=== PATIENT | female | born 1980 | race African-American/Black ===

== ENCOUNTER 2016-07-30 06:53 | Inpatient (IN) | payer BC ==
[2016-07-30 07:36] LABS: AMNISURE (ROM) POSITIVE (NEGATIVE)
[2016-07-30] MEDS ORDERED: PENICILLIN G-K 5 MILLION UNIT VIAL ONE ×2 (07:45→11:45)
[2016-07-30] MEDS: RINGERS SOLUTION,LACTATED 1,000 ML IV PRN ×2 (07:51→09:23)
--- NOTE | 2016-07-30 08:00 | L&D Flow Sheet ---
LD Flowsheet Datetime Report Generated by CPN: 07/30/2016 08:00 Datetime: 07/30/2016 07:58 I/O Interventions: Up to BR (Mana Iron, RN) Datetime: 07/30/2016 07:55 Medications Antibiotics: Penicillin IV (Units) @ 5million units IVPB (Mana Iron, RN) Datetime: 07/30/2016 07:51 Patient Care IV/Blood Work: IV Started; IV Bolus Started (Mana Iron, RN) Datetime: 07/30/2016 07:42 I/O Interventions: Up to BR (Mana Iron, RN) Datetime: 07/30/2016 07:31 Vital Signs NBP Sys/Lenka/Mean (mmHg): 125 (QS system process) : 80 (QS system process) : 94 (QS system process) Pulse: 97 (QS system process) Datetime: 07/30/2016 07:24 I/O Interventions: Up to BR (Mana Iron, RN) Datetime: 07/30/2016 07:22 Communication Communication Comments: Dr Jose at desk. Informed pt complaints, FHR, UC pattern, SVE, amnisure pending. No new orders received. (Mana Iron, RN) Datetime: 07/30/2016 07:21 Vital Signs NBP Sys/Lenka/Mean (mmHg): 156 (QS system process) : 80 (QS system process) : 109 (QS system process) Pulse: 93 (QS system process) Datetime: 07/30/2016 07:18 Vaginal Exam Dilatation (cm): 3.0 (Mana Perdue RN) Effacement (%): 80 (Mana Perdue RN) Station: 1 (Mana Perdue RN) Exam by: Diana Perdue RNC (Mana Perdue RN) Vaginal Bleeding: None (Mana Perdue RN) Cervix, Consistency: Soft (Mana Perdue RN) Cervix, Position: Posterior (Mana Perdue RN)
[2016-07-30] MEDS ORDERED: BENZOIN/ALOE VERA/STORAX/TOLU TINCTURE 60 ML TP PRN (08:07)
[2016-07-30] MEDS ORDERED: BUPIVACAINE HCL 0.25 % INJ/PF (2.5 MG/1 ML) 30 ML VIAL INFIL ONE (08:07)
[2016-07-30] MEDS ORDERED: FENTANYL/BUPIVACAINE/NS/PF 100 ML EPI PRN (08:07)
[2016-07-30] MEDS ORDERED: FENTANYL CITRATE INJ/PF 100 MCG/2 ML AMPUL ONE (08:12)
[2016-07-30] MEDS ORDERED: EPHEDRINE SULFATE INJ 50 MG/1 ML AMPULE ONE (08:13)
[2016-07-30] MEDS ORDERED: OXYTOCIN/NORMAL SALINE 20 UNIT/1,000 ML RTUINJ ONE (08:13)
[2016-07-30] MEDS ORDERED: FENTANYL/BUPIVACAINE/NS/PF 200 MCG/100 ML RTUINJ EPI ONE (08:13)
[2016-07-30] MEDS ORDERED: BUPIVACAINE HCL 0.25 % INJ/PF (2.5 MG/1 ML) 30 ML VIAL ONE (08:13)
[2016-07-30] MEDS ORDERED: PHENYLEPHRINE HCL INJ/PF 10 MG/1 ML SDV ONE (08:13)
[2016-07-30 08:19] LABS: APPEARANCE,URINE CLEAR; BILIRUBIN,URINE NEGATIVE (NEGATIVE); GLUCOSE, URINE NEGATIVE (NEGATIVE); KETONES,URINE NEGATIVE (NEGATIVE); LEUKOCYTE ESTERASE,URINE SMALL (NEGATIVE); NITRITE,URINE NEGATIVE (NEGATIVE); PROTEIN,URINE NEGATIVE (NEGATIVE); URINE SPECIFIC GRAVITY 1.011; UROBILINOGEN,URINE NEGATIVE mg/dL (<2.0)
[2016-07-30 08:21] LABS: ABSOLUTE BASOPHILS # (AUTO) 0.1 10^3/uL (0.0-0.2); ABSOLUTE LYMPHOCYTES (AUTO) 1.8 10^3/uL (0.5-4.7); ABSOLUTE MONOCYTES (AUTO) 0.5 10^3/uL (0.1-1.4); ABSOLUTE NEUT (AUTO) 5.1 10^3/uL (1.7-8.2); BASOPHILS % (AUTO) 0.7 % (0-2); EOSINOPHILS % (AUTO) 0.5 % (0-6); HEMATOCRIT 40.9 % (36.0-47.0); HEMOGLOBIN 13.8 g/dL (12.0-15.5); HGB HCT DIFFERENCE 0.5; LYMPHOCYTES % (AUTO) 24.4 % (13-45); MEAN CORPUSCULAR HEMOGLOBIN 31.1 pg (27.0-33.4); MEAN CORPUSCULAR HGB CONC 33.8 g/dL (32.0-36.0); MEAN CORPUSCULAR VOLUME 92 fl (80-97); RED BLOOD COUNT 4.45 10^6/uL (3.72-5.28); RED CELL DISTRIBUTION WIDTH 14.6 % (11.5-14.0); SEGMENTED NEUTROPHILS % (AUTO) 67.4 % (42-78); WHITE BLOOD COUNT 7.6 10^3/uL (4.0-10.5)
[2016-07-30 08:46] LABS: URINE BARBITURATES SCREEN NEGATIVE; URINE METHADONE SCREEN NEGATIVE; URINE PHENCYCLIDINE SCREEN NEGATIVE
[2016-07-30 08:50] LABS: ALANINE AMINOTRANSFERASE 29 U/L (9-52); ALBUMIN 3.8 g/dL (3.5-5.0); ALKALINE PHOSPHATASE 170 U/L (38-126); ANION GAP 14 (5-19); ASPARTATE AMINO TRANSFERASE 24 U/L (14-36); BILIRUBIN,TOTAL 0.5 mg/dL (0.2-1.3); BLOOD UREA NITROGEN 7 mg/dL (7-20); CALCIUM 10.1 mg/dL (8.4-10.2); CARBON DIOXIDE 21 mmol/L (22-30); CHLORIDE 103 mmol/L (98-107); CREATININE RESULT 0.66 mg/dL (0.52-1.25); GLUCOSE 90 mg/dL (75-110); LDH 413 U/L (313-618); POTASSIUM 3.9 mmol/L (3.6-5.0); TOTAL PROTEIN 7.2 g/dL (6.3-8.2); URIC ACID 5.2 mg/dL (2.5-7.0)
--- NOTE | 2016-07-30 09:17 | L&D Progress Notes ---
PROGRESS NOTES Datetime Report Generated by CPN: 07/30/2016 09:17 PROGRESS NOTE Impression: Normal Progression of Labor Procedures: Sterile Vag Exam Plan: Continue Present Management Comment: pt comfortable with epidural..expectant management VAGINAL EXAM Dilatation: 4 Effacement: 90 Station: 0 MEMBRANES Pooling: Positive Membranes: Ruptured Amniotic Fluid Color: Clear FETUS A Monitoring: External US FHR Category: Category I : 36.3 Estimated Weight (gm): 2900 Presentation: Vertex SIGNATURE SIGNATURE: [id number] Signature: with User ID: [email or web address]
[2016-07-30 09:31] LABS: HIV (1 AND 2) ANTIBODY NEGATIVE (NEGATIVE)
[2016-07-30] MEDS ORDERED: PENICILLIN G-K 5 MILLION UNIT VIAL IV SCH ×3 (10:00→14:00)
--- NOTE | 2016-07-30 11:09 | L&D Progress Notes ---
PROGRESS NOTES Datetime Report Generated by CPN: 07/30/2016 11:09 PROGRESS NOTE Procedures: Intrauterine Pressure Catheter Comment: IUPC placed as unable to trace ctxs...pit augmentation if inadequate pattern VAGINAL EXAM Dilatation: 6 Effacement: 90 Station: 1 FETUS A FHR Category: Category I FETUS C SIGNATURE: [id number] Signature: with User ID: [email or web address]
[2016-07-30] MEDS ORDERED: OXYTOCIN/NORMAL SALINE 1,000 ML IV PRN ×2 (11:18→15:12)
[2016-07-30] MEDS ORDERED: PENICILLIN G POTASSIUM 2,500,000 UNIT in DEXTROSE 5%-WATER 50 ML IV SCH (11:44)
--- NOTE | 2016-07-30 12:00 | L&D Flow Sheet ---
LD Flowsheet Datetime Report Generated by CPN: 07/30/2016 12:00 Datetime: 07/30/2016 11:51 Pulse: 90 (QS system process) SpO2 (%): 97 (QS system process) LaborFlag: Labor (QS system process) Datetime: 07/30/2016 11:50 Contraction Comments: MVU 150 (Mana Iron, RN) Datetime: 07/30/2016 11:47 NBP Sys/Lenka/Mean (mmHg): 122 (QS system process) : 67 (QS system process) : 88 (QS system process) Pulse: 89 (QS system process) LaborFlag: Labor (QS system process) Datetime: 07/30/2016 11:45 Monitor Mode: Internal; Palpation (Mana Perdue RN) Frequency (min): 2-5 (Mana Perdue RN) Quality: Mild/Moderate (Mana Perdue RN) Duration (sec): 40-100 (Mana Perdue RN) Resting Tone (Palpate): Relaxed (Mana Perdue RN) Resting Tone IUP (mmHg): 20 (Mana Perdue RN) Contraction Comments: Intensity 40-70 (Mana Perdue RN) Monitor Mode: External US (Mana Perdue RN) FHR Baseline Rate : 140 (Mana Perdue RN) Variability: Moderate 6-25 bpm (Mana Perdue RN) Decelerations: None (Mana Perdue RN) Pitocin (milliunit): Pitocin Remains (milliunits) @ 2 (Mana Perdue RN) Datetime: 07/30/2016 11:36 Pulse: 87 (QS system process) SpO2 (%): 100 (QS system process) LaborFlag: Labor (QS system process) Datetime: 07/30/2016 11:32 NBP Sys/Lenka/Mean (mmHg): 122 (QS system process) : 69 (QS system process) : 89 (QS system process) Pulse: 95 (QS system process) LaborFlag: Labor (QS system process) Datetime: 07/30/2016 11:30 Monitor Mode: Internal; Palpation (Mana Iron, RN) Frequency (min): 2-6 (Mana Perdue, RN) Quality: Mild/Moderate (Mana Perdue, RN) Duration (sec): 50-120 (Mana Perdue, RN) Resting Tone (Palpate): Relaxed (Mana Perdue, RN) Resting Tone IUP (mmHg): 20 (Mana Perdue, RN) Contraction Comments: Intensity 50-75 (Mana Perdue, RN) Monitor Mode: External US (Mana Perdue RN) FHR Baseline Rate : 125 (Mana Perdue, RN) Variability: Minimal - Undetectable to <=5 bpm (Mana Perdue, RN) Decelerations: Early (Mana Perdue, RN) Pitocin (milliunit): Pitocin Remains (milliunits) @ 2 (Mana Perdue, RN) Datetime: 07/30/2016 11:28 Contraction Comments: MVU 70 (Mana Perdue, RN) Pitocin (milliunit): Pitocin Started (milliunits) @ 2 (Mana Perdue, RN) Datetime: 07/30/2016 11:17 NBP Sys/Lenka/Mean (mmHg): 118 (QS system process) : 74 (QS system process) : 91 (QS system process) Pulse: 100 (QS system process) LaborFlag: Labor (QS system process) Datetime: 07/30/2016 11:15 Monitor Mode: Internal; Palpation (Mana Iron, RN) Frequency (min): 5 (Mana Iron, RN) Quality: Mild/Moderate (Mana Iron, RN) Duration (sec): 90-120 (Mana Iron, RN) Resting Tone (Palpate): Relaxed (Mana Iron, RN) Resting Tone IUP (mmHg): 20 (Mana Iron, RN) Intensity IUP (mmHg): 50 (Mana Iron, RN) Monitor Mode: External US (Mana Iron, RN) FHR Baseline Rate : 115 (Mana Iron, RN) Variability: Minimal - Undetectable to <=5 bpm (Mana Iron, RN) Decelerations: None (Mana Iron, RN) Datetime: 07/30/2016 11:07 Patient Position/Activity: Left Lateral; Peanut Ball (Mana Perdue, NATASHA) Datetime: 07/30/2016 11:05 Monitor Interventions for UA: IUPC Inserted (Mana Perdue RN) Dilatation (cm): 6.0 (Mana Perdue RN) Effacement (%): 90 (Mana Perdue RN) Station: 1 (Mana Perdue RN) Exam by: Dr Robertson (Mana Perdue RN) Vaginal Bleeding: Normal Show (Mana Perdue RN) Cervix, Consistency: Soft (Mana Perdue RN) Cervix, Position: Midposition (Mana Perdue RN) Hygiene: Kathrine Care; Underpad Changed (Mana Perdue RN) Datetime: 07/30/2016 11:03 Communication Comments: Dr Robertson at bedside. (Mana Perdue RN) Datetime: 07/30/2016 11:02 NBP Sys/Lenka/Mean (mmHg): 113 (QS system process) : 75 (QS system process) : 89 (QS system process) Pulse: 92 (QS system process) LaborFlag: Labor (QS system process) Datetime: 07/30/2016 11:00 Monitor Mode: External; Palpation (Mana Perdue, RN) Frequency (min): 3-5 (Mana Iron, RN) Quality: Mild/Moderate (Mana Iron, RN) Duration (sec): 50-80 (Mana Iron, RN) Resting Tone (Palpate): Relaxed (Mana Iron, RN) Monitor Mode: External US (Mana Iron, RN) FHR Baseline Rate : 125 (Mana Iron, RN) Variability: Moderate 6-25 bpm (Mana Iron, RN) Accelerations: 10X10 (Mana Iron, RN) Decelerations: Early (Mana Iron, RN) Datetime: 07/30/2016 10:49 NBP Sys/Lenka/Mean (mmHg): 133 (QS system process) : 75 (QS system process) : 98 (QS system process) Pulse: 82 (QS system process) LaborFlag: Labor (QS system process) Datetime: 07/30/2016 10:45 Monitor Mode: External; Palpation (Mana Iron, RN) Frequency (min): 3-5 (Mana Iron, RN) Quality: Mild/Moderate (Mana Iron, RN) Duration (sec): 50-70 (Mana Iron, RN) Resting Tone (Palpate): Relaxed (Mana Iron, RN) Monitor Mode: External US (Mana Iron, RN) FHR Baseline Rate : 125 (Mana Iron, RN) Variability: Minimal - Undetectable to <=5 bpm (Mana Iron, RN) Decelerations: None (Mana Iron, RN) Datetime: 07/30/2016 10:32 NBP Sys/Lenka/Mean (mmHg): 137 (QS system process) : 87 (QS system process) : 101 (QS system process) Respirations: 16 (Mana Iron, RN) LaborFlag: Labor (QS system process) Datetime: 07/30/2016 10:30 Monitor Mode: External; Palpation (Mana Iron, RN) Frequency (min): 3-6 (Mana Iron, RN) Quality: Mild/Moderate (Mana Iron, RN) Duration (sec): 50-70 (Mana Iron, RN) Resting Tone (Palpate): Relaxed (Mana Iron, RN) Monitor Mode: External US (Mana Iron, RN) FHR Baseline Rate : 120 (Mana Iron, RN) Variability: Moderate 6-25 bpm (Mana Iron, RN) Decelerations: Early (Mana Iron, RN) Datetime: 07/30/2016 10:17 NBP Sys/Lenka/Mean (mmHg): 127 (QS system process) : 81 (QS system process) : 99 (QS system process) Pulse: 78 (QS system process) Respirations: 16 (Mana Perdue RN) LaborFlag: Labor (QS system process) Datetime: 07/30/2016 10:15 Monitor Mode: External; Palpation (Mana Perdue RN) Frequency (min): 3-5 (Mana Perdue RN) Quality: Mild/Moderate (Mana Perdue RN) Duration (sec): 50-70 (Mana Perdue RN) Resting Tone (Palpate): Relaxed (Mana Perdue RN) Monitor Mode: External US (Mana Perdue RN) FHR Baseline Rate : 125 (Mana Perdue RN) Variability: Moderate 6-25 bpm (Manacarmencita Perdue, RN) Decelerations: Early (Manacarmencita Perdue RN) Datetime: 07/30/2016 10:03 NBP Sys/Lenka/Mean (mmHg): 129 (QS system process) : 80 (QS system process) : 100 (QS system process) Pulse: 90 (QS system process) Respirations: 15 (Mana Iron, RN) Temperature (F): 97.5 (Mana Iron, RN) Temperature (C): 36.4 (QS system process) Temperature Route: Oral (Mana Iron, RN) LaborFlag: Labor (QS system process) Datetime: 07/30/2016 10:00 Monitor Mode: External; Palpation (Mana Perdue, RN) Frequency (min): 4-6 (Manacarmencita Perdue, RN) Quality: Mild/Moderate (Mana Iron, RN) Duration (sec): 60-90 (Mana Iron, RN) Resting Tone (Palpate): Relaxed (Mana Iron, RN) Monitor Mode: External US (Manacarmencita Perdue, RN) FHR Baseline Rate : 125 (Mana Iron, RN) Variability: Moderate 6-25 bpm (Mana Iron, RN) Decelerations: Early (Mana Iron, RN) Patient Position/Activity: Right Lateral; Peanut Ball (Mana Iron, RN) Datetime: 07/30/2016 09:48 NBP Sys/Lenka/Mean (mmHg): 119 (QS system process) : 76 (QS system process) : 92 (QS system process) Pulse: 92 (QS system process) LaborFlag: Labor (QS system process) Datetime: 07/30/2016 09:32 NBP Sys/Lenka/Mean (mmHg): 114 (QS system process) : 70 (QS system process) : 86 (QS system process) Pulse: 82 (QS system process) Respirations: 18 (Mana Perdue RN) LaborFlag: Labor (QS system process) Datetime: 07/30/2016 09:30 Monitor Mode: External; Palpation (Mana Perdue RN) Frequency (min): 3-5 (Mana Perdue RN) Quality: Mild/Moderate (Mana Perdue RN) Duration (sec): 60-90 (Mana Perdue RN) Resting Tone (Palpate): Relaxed (Mana Perdue RN) Monitor Mode: External US (Mana Perdue RN) FHR Baseline Rate : 130 (Mana Perdue RN) Variability: Minimal - Undetectable to <=5 bpm (Mana Iron, RN) Decelerations: Early (Mana Iron, RN) Datetime: 07/30/2016 09:23 IV/Blood Work: IV Infusing per Order; New IV Bag Hung; IV Bag Number @ 2 (Mana Perdue, RN) Datetime: 07/30/2016 09:17 NBP Sys/Lenka/Mean (mmHg): 117 (QS system process) : 69 (QS system process) : 86 (QS system process) Pulse: 85 (QS system process) Respirations: 17 (Mana Iron, RN) LaborFlag: Labor (QS system process) Datetime: 07/30/2016 09:14 Pain Scale: 0 (Mana Perdue RN) Pain Presence: None/Denies (Mana Perdue RN) Pain Type: N/A (Mana Perdue RN) Pain Assessment Comments: comfortable w/ ctx (Mana Perdue RN) Dilatation (cm): 5.0 (Mana Perdue RN) Effacement (%): 90 (Mana Perdue RN) Station: 0 (Mana Perdue RN) Exam by: Dr Robertson (Mana Perdue RN) Vaginal Bleeding: Normal Show (Mana Perdue RN) Cervix, Consistency: Soft (Mana Perdue RN) Cervix, Position: Midposition (Mana Perdue RN) LaborFlag: Labor (QS system process) Datetime: 07/30/2016 09:12 I/O Interventions: Goodmna Cath Inserted (Mana Perdue RN) Patient Care Comments: 14fr goodman cath inserted by Dr Robertson under sterile technique, secured to left leg, set to gravity drainage. (Maan Perdue RN) Datetime: 07/30/2016 09:11 NBP Sys/Lenka/Mean (mmHg): 118 (QS system process) : 71 (QS system process) : 90 (QS system process) Pulse: 90 (QS system process) LaborFlag: Labor (QS system process) Datetime: 07/30/2016 09:10 NBP Sys/Lenka/Mean (mmHg): 116 (QS system process) : 67 (QS system process) : 86 (QS system process) Pulse: 93 (QS system process) Communication Comments: Dr Scott at bedside (Mana Perdue RN) LaborFlag: Labor (QS system process) Datetime: 07/30/2016 09:09 NBP Sys/Lenka/Mean (mmHg): 115 (QS system process) : 69 (QS system process) : 87 (QS system process) Pulse: 94 (QS system process) LaborFlag: Labor (QS system process) Datetime: 07/30/2016 09:08 NBP Sys/Lenka/Mean (mmHg): 115 (QS system process) : 71 (QS system process) : 87 (QS system process) Pulse: 86 (QS system process) LaborFlag: Labor (QS system process) Datetime: 07/30/2016 09:07 NBP Sys/Lenka/Mean (mmHg): 117 (QS system process) : 68 (QS system process) : 87 (QS system process) Pulse: 86 (QS system process) Respirations: 16 (Manacarmencita Perdue RN) LaborFlag: Labor (QS system process) Datetime: 07/30/2016 09:06 NBP Sys/Lenka/Mean (mmHg): 118 (QS system process) : 68 (QS system process) : 88 (QS system process) Pulse: 96 (QS system process) LaborFlag: Labor (QS system process) Datetime: 07/30/2016 09:05 NBP Sys/Lenka/Mean (mmHg): 115 (QS system process) : 66 (QS system process) : 85 (QS system process) Pulse: 89 (QS system process) LaborFlag: Labor (QS system process) Datetime: 07/30/2016 09:04 NBP Sys/Lenka/Mean (mmHg): 116 (QS system process) : 64 (QS system process) : 84 (QS system process) Pulse: 89 (QS system process) LaborFlag: Labor (QS system process) Datetime: 07/30/2016 09:03 NBP Sys/Lenka/Mean (mmHg): 120 (QS system process) NBP Sys/Lenka/Mean (mmHg): 122 (QS system process) : 65 (QS system process) : 68 (QS system process) : 86 (QS system process) : 90 (QS system process) Pulse: 94 (QS system process) Pulse: 96 (QS system process) Respirations: 18 (Mana Perdue RN) LaborFlag: Labor (QS system process) Datetime: 07/30/2016 09:01 NBP Sys/Lenka/Mean (mmHg): 139 (QS system process) : 66 (QS system process) : 98 (QS system process) Pulse: 137 (QS system process) Respirations: 18 (Mana Perdue RN) LaborFlag: Labor (QS system process) Datetime: 07/30/2016 09:00 NBP Sys/Lenka/Mean (mmHg): 135 (QS system process) NBP Sys/Lenka/Mean (mmHg): 142 (QS system process) : 76 (QS system process) : 84 (QS system process) : 100 (QS system process) : 107 (QS system process) Pulse: 100 (QS system process) Pulse: 94 (QS system process) Monitor Mode: External; Palpation (Mana Perdue RN) Frequency (min): 3-5 (Mana Perude RN) Quality: Moderate (Mana Perdue RN) Duration (sec): 50-80 (Mana Perdue RN) Resting Tone (Palpate): Relaxed (Mana Perdue RN) Monitor Mode: External US (Mana Perdue RN) FHR Baseline Rate : 135 (Mana Perdue RN) Variability: Moderate 6-25 bpm (Mana Perdue RN) Decelerations: None (Mana Perdue RN) Patient Position/Activity: Left Tilt; Supine (Mana Perdue RN) LaborFlag: Labor (QS system process) Datetime: 07/30/2016 08:58 Pulse: 100 (QS system process) Pulse: 96 (QS system process) SpO2 (%): 93 (QS system process) SpO2 (%): 91 (QS system process) LaborFlag: Labor (QS system process) Datetime: 07/30/2016 08:57 NBP Sys/Lenka/Mean (mmHg): 131 (QS system process) : 80 (QS system process) : 101 (QS system process) Pulse: 92 (QS system process) LaborFlag: Labor (QS system process) Datetime: 07/30/2016 08:56 NBP Sys/Lenka/Mean (mmHg): 135 (QS system process) : 85 (QS system process) : 105 (QS system process) Pulse: 89 (QS system process) LaborFlag: Labor (QS system process) Datetime: 07/30/2016 08:55 NBP Sys/Lenka/Mean (mmHg): 147 (QS system process) : 85 (QS system process) : 111 (QS system process) Pulse: 96 (QS system process) Respirations: 19 (Mana Perdue RN) Epidural Procedure: Cath Placed; Test Dose (Mana Perdue RN) LaborFlag: Labor (QS system process) Datetime: 07/30/2016 08:53 Pulse: 90 (QS system process) SpO2 (%): 100 (QS system process) LaborFlag: Labor (QS system process) Datetime: 07/30/2016 08:51 Pulse: 88 (QS system process) SpO2 (%): 93 (QS system process) Procedure Type: Epidural (Mana Perdue RN) Procedure Verify: Correct Patient Identity; Correct Side and Site are Marked; Accurate Procedure Consent Form; Agreement on Procedure to be Done; Correct Patient Position; Relevant Images and Results are Properly Labeled and Displayed; Addressed Need to Administer Antibiotics or Fluids for Irrigation; Safety Precautions Based on Patient History or Medication Use (Mana Perdue RN) Anesthesia Plans: Epidural (Mana Perdue RN) Epidural Positioning: Sitting (Mana Perdue RN) LaborFlag: Labor (QS system process) Datetime: 07/30/2016 08:48 Anesthesia Comments: Courtneyjoseph at bedside (Mana Perdue, RN) Datetime: 07/30/2016 08:45 Procedure Type: Epidural (Mana Perdue RN) Procedure Verify: Correct Patient Identity; Accurate Procedure Consent Form; Agreement on Procedure to be Done; Relevant Images and Results are Properly Labeled and Displayed; Addressed Need to Administer Antibiotics or Fluids for Irrigation (aMna Perdue RN) Anesthesia Plans: Epidural (Maan Perdue RN) Anesthesia Comments: Dr Burgess notified of epidural request (Mana Perdue RN) Datetime: 07/30/2016 08:39 I/O Interventions: Up to BR (Mana Iron, RN) Datetime: 07/30/2016 08:30 Monitor Mode: External; Palpation (Mana Iron, RN) Frequency (min): 2-4 (Mana Iron, RN) Quality: Moderate (Mana Iron, RN) Duration (sec): 50-70 (Mana Iron, RN) Resting Tone (Palpate): Relaxed (Mana Iron, RN) Monitor Mode: External US (Mana Iron, RN) FHR Baseline Rate : 135 (Mana Iron, RN) Variability: Moderate 6-25 bpm (Mana Iron, RN) Decelerations: None (Mana Iron, RN) Datetime: 07/30/2016 08:17 I/O Interventions: Up to BR (Mana Iron, RN) Datetime: 07/30/2016 08:16 NBP Sys/Lenka/Mean (mmHg): 140 (QS system process) : 74 (QS system process) : 99 (QS system process) Pulse: 92 (QS system process) Temperature (F): 97.6 (Mana Perdue RN) Temperature (C): 36.4 (QS system process) Temperature Route: Oral (Mana Perdue RN) LaborFlag: Labor (QS system process) Datetime: 07/30/2016 08:00 Monitor Mode: External; Palpation (Latoya Martinez RN) Frequency (min): 3-5 (Latoya Martinez RN) Quality: Moderate (Mana Perdue RN) Duration (sec): 60-80 (Latoya Martinez RN) Resting Tone (Palpate): Relaxed (Mana Perdue RN) Monitor Mode: External US (Latoya Martinez RN) FHR Baseline Rate : 135 (Mana Perdue RN) Variability: Moderate 6-25 bpm (Mana Perdue RN) Accelerations: 15X15 (Latoya Martinez RN) Decelerations: Variable (Mana Perdue RN)
[2016-07-30 12:22] LABS: CHLAM PCR NOT DETECTED (NOT DETECT)
[2016-07-30] MEDS ORDERED: DIPH/PERTUSS(ACELL)/TETANUS VAC/PF 0.5 ML SYR (>=10YO) IM PRN (15:12)
[2016-07-30] MEDS ORDERED: MEASLES,MUMPS&RUBELLA VACC/PF 0.5 ML VIAL SUBCUT PRN (15:12)
[2016-07-30] MEDS ORDERED: ACETAMINOPHEN WITH CODEINE #3 TABLET PO PRN (15:12)
[2016-07-30] MEDS ORDERED: DIBUCAINE 1% OINTMENT 28 GM TP PRN (15:12)
[2016-07-30] MEDS ORDERED: BENZOCAINE/MENTHOL AEROSOL SPRAY 56 ML TOP PRN (15:12)
[2016-07-30] MEDS ORDERED: ZOLPIDEM TARTRATE 5 MG TABLET PO PRN (15:12)
--- NOTE | 2016-07-30 15:54 | Delivery Summary ---
Del Sum A-C Datetime Report Generated by CPN: 07/30/2016 15:53 ADMISSION DATA Chief Complaint: Uterine Contractions Indication for Induction: Not Applicable Admission Impression: Term, Intrauterine ; Active Labor DELIVERY PERSONNEL Delivery Doctor:: Devi Robertson MD Labor and Delivery Nurse:: Mana Perdue RN Nursery Nurse:: Dominique Villavicencio, RN Prepress Operator/PHARMACY RETAIL SUPPORT SPECIALIST: Alfredo Kang, ST MATERNAL INFORMATION Delivery Anesthesia: Epidural Medications After Delivery: Pitocin Drip 20 Units/1000ml NSS Maternal Complications: Other Other Maternal Complications: labor Provider Comments: When pt complete and pushing at +3 station, late decels refractory to oxygen, positioning and fluids noted. OA position noted. Kiwi applied and pulled with 3 ctxs. No pop offs and max pressure of 550. Left mediolateral episiotomy cut just prior to last ctx. Head then delivered OA. Shoulders and body delivered easily. Cord clamped and cut. Placenta spont and intact. Episiotomy repaired. LABOR SUMMARY EDC: 08/24/2016 00:00 No. Babies in Womb: 1 Attempted: No Labor Anesthesia: Epidural LABOR INFORMATION Reason for Induction: Premature Rupture of Membranes Onset of Labor: 07/30/2016 05:45 Complete Dilatation: 07/30/2016 13:26 Oxytocin: Augmentation Group B Beta Strep: Drone Results unknown Antibiotics # of Doses: 2 Antibiotics Time of Last Dose: 1158 Name of Antibiotic Given: PCN Steroids Given: None Reason Steroids Not Administered: Not Applicable MEMBRANES Membranes Rupture Method: Spontaneous Rupture of Membranes: 07/30/2016 05:45 Length of Rupture (hr): 8.68 Amniotic Fluid Color: Clear Amniotic Fluid Amount: Small Amniotic Fluid Odor: Normal STAGES OF LABOR Stage 1 hr: 7 Stage 1 min: 41 Stage 2 hr: 1 Stage 2 min: 0 Stage 3 hr: 0 Stage 3 min: 5 Total Time in Labor hr: 8 Total Time in Labor min: 46 VAGINAL DELIVERY Episiotomy: Left Mediolateral Laceration Extension: N/A Laceration Type: None Laceration Repair: Yes Laceration Repair Note: with 2-0 chromic in standard fashion Sponge Count Correct: N/A CSECTION DELIVERY Primary Indication: N/A Secondary Indication: N/A CSection Urgency: N/A CSection Incidence: N/A Labor: N/A Elective: N/A CSection Incision: N/A BABY A INFORMATION Delivery Date/Time: 07/30/2016 14:26 Method of Delivery: Vaginal Born in Route : No : N/A Forceps: N/A Vacuum Extraction: Successful Shoulder Dystocia : No ASSISTED DELIVERY BABY A Indication for Assisted Delivery: NRFHR Catheter Prior to Procedure: Yes Station Vacuum/Forcep Apply: +3 Position Vacuum/Forcep Apply: Right Occipital Anterior Vacuum Number of Pulls: 3 Vacuum Number of PopOffs: 0 Vacuum Maximum Pressure Obtained: 550 Reduce Pressure btwn Ctx: No Vacuum Scientific Technical Writer: Kiwi Total Time Vacuum Applied: 5 Type of Forceps: N/A PRESENTATION/POSITION BABY A Presentation: Cephalic Cephalic Presentation: Vertex Vertex Position: Right Occipital Anterior Breech Presentation: N/A PLACENTA INFORMATION BABY A Placenta Delivery Time : 07/30/2016 14:31 Placenta Method of Delivery: Spontaneous Placenta Status: Delivered SCORES BABY A Heart Rate 1 min: >100 bpm Resp Effort 1 min: Good Cry Reflex Irritability 1 min: Cough or Sneeze or Pulls Away Muscle Tone 1 min: Active Motion Color 1 min: Blue/Pale Resuscitation Effort 1 min: Tactile Stimulation SCORE 1 MIN: 8 Heart Rate 5 min: >100 bpm Resp Effort 5 min: Good Cry Reflex Irritability 5 min: Cough or Sneeze or Pulls Away Muscle Tone 5 min: Active Motion Color 5 min: Body Timken, Extremities Blue Resuscitation Effort 5 min: Tactile Stimulation SCORE 5 MIN: 9 INFANT INFORMATION BABY A Gestational Age at Delivery: 36.3 Gestational Status: Late - 34- 36.6 Weeks Outcome : Liveborn Infant Condition : Stable Sex: Female IDENTIFICATION BABY A Verification Date/Time: 07/30/2016 14:37 ID Band Number: [id number] Mother's Name Verified: Yes Infant RN Verifying : B Cristaldy RN/M Dane COMPLEX HUMAN RESOURCES MANAGER WEIGHT/LENGTH BABY A Infant Birthweight (gm): 2630 Weight (lb): 5 Infant Weight (oz): 13 Infant Length (in): 19.00 Length (cm): 48.26 CORD INFORMATION BABY A No. Cord Vessels: 3 Nuchal Cord : N/A Cord Blood Taken: Yes-For Storage (Mom's Blood type +) Infant Suction: Mouth; Nose ASSESSMENT BABY A Infant Complications: Multiple Late Decels Physical Findings at Delivery: Within Normal Limits; Molding of the Head Respirations: Appears Normal Skin to Skin: Yes Skin to Skin Time (min): 60 Energy Trader/ALS Called : No Care By: Priscilla Villavicencio RN Transferred To: Remains with Mother BABY B INFORMATION : N/A SIGNATURES Signature: with User ID: [email or web address]
--- NOTE | 2016-07-30 16:00 | L&D Flow Sheet ---
LD Flowsheet Datetime Report Generated by CPN: 07/30/2016 16:00 Datetime: 07/30/2016 15:46 NBP Sys/Lenka/Mean (mmHg): 137 (QS system process) : 75 (QS system process) : 99 (QS system process) Pulse: 93 (QS system process) Datetime: 07/30/2016 15:31 NBP Sys/Lenka/Mean (mmHg): 125 (QS system process) : 67 (QS system process) : 89 (QS system process) Pulse: 99 (QS system process) Respirations: 18 (Mana Iron, RN) Datetime: 07/30/2016 15:16 NBP Sys/Lenka/Mean (mmHg): 115 (QS system process) : 57 (QS system process) : 82 (QS system process) Pulse: 95 (QS system process) Respirations: 16 (Mana Iron, RN) Datetime: 07/30/2016 15:01 NBP Sys/Lenka/Mean (mmHg): 125 (QS system process) : 60 (QS system process) : 86 (QS system process) Pulse: 96 (QS system process) Respirations: 16 (Mana Iron, RN) Temperature (F): 98.5 (Manacarmencita Perdue RN) Temperature (C): 36.9 (QS system process) Temperature Route: Oral (Mana Iron, RN) Datetime: 07/30/2016 14:47 NBP Sys/Lenka/Mean (mmHg): 119 (QS system process) : 63 (QS system process) : 86 (QS system process) Pulse: 106 (QS system process) Respirations: 18 (Mana Perdue RN) Datetime: 07/30/2016 14:31 Stage of : Recovery (Mana Perdue RN) Pain Scale: 0 (Mana Perdue RN) Pain Presence: None/Denies (Mana Perdue RN) Pain Type: N/A (Mana Perdue RN) Stage 2 Comments: Intact placenta, to pathology per Dr Robertson (Mana Perdue RN) Datetime: 07/30/2016 14:30 Pitocin (milliunit): Pitocin 20 Units in 1000ml NS (Mana Perdue RN) Datetime: 07/30/2016 14:27 Stage of : Recovery (Mana Perdue RN) Datetime: 07/30/2016 14:26 Monitor Mode: Internal; Palpation (Mana Perdue RN) Frequency (min): 2-3 (Mana Perdue RN) Quality: Moderate to Strong (Mana Perdue RN) Duration (sec): 60-90 (Mana Perdue RN) Resting Tone (Palpate): Relaxed (Mana Perdue RN) Resting Tone IUP (mmHg): 20 (Mana Perdue RN) Monitor Mode: External US (Mana Perdue RN) FHR Baseline Rate : 140 (Mana Perdue RN) Variability: Minimal - Undetectable to <=5 bpm (Mana Perdue RN) Decelerations: Early; Late; Prolonged (Mana Perdue RN) Stage 2 Comments: Pull x 1, removed w/ delivery of head (Mana Perdue RN) Stage 2 Comments: Viable baby girl, see delivery summary (Mana Iron, RN) Datetime: 07/30/2016 14:25 Pushing Progress: with Pushing (Mana Iron, RN) Datetime: 07/30/2016 14:24 Stage 2 Comments: Pull x 1 (Mana Iron, RN) Datetime: 07/30/2016 14:22 Stage 2 Comments: Pull x 1 (Mana Iron, RN) Datetime: 07/30/2016 14:21 Contraction Comments: IUPC removed (Mana Perdue, RN) Vacuum: On (Mana Iron, RN) Datetime: 07/30/2016 14:16 NBP Sys/Lenka/Mean (mmHg): 124 (QS system process) : 72 (QS system process) : 92 (QS system process) Pulse: 118 (QS system process) LaborFlag: Labor (QS system process) Datetime: 07/30/2016 14:15 Monitor Mode: Internal; Palpation (Mana Perdue, RN) Frequency (min): 2-4 (Mana Iron, RN) Quality: Moderate to Strong (Mana Perdue RN) Duration (sec): 60-90 (Mana Perdue RN) Resting Tone (Palpate): Relaxed (Mana Perdue RN) Resting Tone IUP (mmHg): 20 (Mana Perdue RN) Monitor Mode: External US (Mana Perdue RN) FHR Baseline Rate : 140 (Mana Perdue RN) Variability: Minimal - Undetectable to <=5 bpm (Mana Perdue RN) Decelerations: Early; Late (Mana Perdue RN) Pitocin (milliunit): Pitocin Discontinued (Mana Perdue RN) Oxygen Amount : 10 (Mana Perdue RN) Oxygen Method: Face Mask (Mana Perdue RN) Datetime: 07/30/2016 14:03 Temperature (F): 98.3 (Mana Perdue RN) Temperature (C): 36.8 (QS system process) LaborFlag: Labor (QS system process) Datetime: 07/30/2016 14:00 Monitor Mode: Internal; Palpation (Mana Perdue RN) Frequency (min): 2-4 (Mana Perdue RN) Quality: Moderate to Strong (Mana Perdue RN) Duration (sec): 60-90 (Mana Perdue RN) Resting Tone (Palpate): Relaxed (Mana Perdue RN) Resting Tone IUP (mmHg): 20 (Mana Perdue, RN) Monitor Mode: External US (Mana Perdue RN) FHR Baseline Rate : 140 (Mana Perdue RN) Variability: Minimal - Undetectable to <=5 bpm (Mana Perdue RN) Decelerations: Early; Late (Mana Perdue RN) Pitocin (milliunit): Pitocin Remains (milliunits) @ 6 (Mana Perdue RN) Datetime: 07/30/2016 13:53 Patient Position/Activity: Right Tilt (Mana Perdue, NATASHA) Datetime: 07/30/2016 13:46 NBP Sys/Lenka/Mean (mmHg): 120 (QS system process) : 56 (QS system process) : 81 (QS system process) Pulse: 98 (QS system process) LaborFlag: Labor (QS system process) Datetime: 07/30/2016 13:45 Monitor Mode: Internal; Palpation (Mana Perdue RN) Frequency (min): 2-3 (Mana Perdue RN) Quality: Moderate to Strong (Mana Perdue RN) Duration (sec): 60-90 (Mana Perdue RN) Resting Tone (Palpate): Relaxed (Mana Perdue RN) Resting Tone IUP (mmHg): 20 (Mana Perdue RN) Monitor Mode: External US (Mana Perdue RN) FHR Baseline Rate : 130 (Mana Perdue, RN) Variability: Minimal - Undetectable to <=5 bpm (Mana Perdue RN) Decelerations: Early (Mana Perdue RN) Pitocin (milliunit): Pitocin Remains (milliunits) @ 6 (Mana Perdue RN) Pushing Position: Pushing with Contractions (Mana Perdue RN) Pushing Progress: Presenting Part Visible (Mana Perdue RN) Datetime: 07/30/2016 13:36 IV/Blood Work: IV Bolus Given ml @ 500 (Mana Iron, RN) Datetime: 07/30/2016 13:33 Patient Position/Activity: Left Tilt (Mana Iron, RN) Datetime: 07/30/2016 13:32 I/O Interventions: [place] Discontinued (Mana Iron, RN) Datetime: 07/30/2016 13:31 NBP Sys/Lenka/Mean (mmHg): 130 (QS system process) : 82 (QS system process) : 101 (QS system process) Pulse: 100 (QS system process) Communication Comments: Dr Robertson at bedside (Mana Perdue RN) LaborFlag: Labor (QS system process) Datetime: 07/30/2016 13:30 Monitor Mode: Internal; Palpation (Mana Perdue RN) Frequency (min): 2-3 (Mana Perdue RN) Quality: Moderate to Strong (Mana Perdue RN) Duration (sec): 60-90 (Mana Perdue RN) Resting Tone (Palpate): Relaxed (Mana Perdue RN) Resting Tone IUP (mmHg): 20 (Mana Perdue RN) Intensity IUP (mmHg): 75 (Mana Perdue RN) Monitor Mode: External US (Mana Perdue RN) FHR Baseline Rate : 135 (Mana Perdue RN) Variability: Moderate 6-25 bpm (Mana Perdue RN) Decelerations: Early; Variable (Mana Perdue RN) Pitocin (milliunit): Pitocin Remains (milliunits) @ 6 (Mana Perdue RN) Datetime: 07/30/2016 13:29 Comments: RN remains at bedside continuously assessing FHR while pt pushing (Mana Perdue, RN) Pushing: Coached on Pushing; Urge to Push (Mana Perdue, RN) Pushing Position: Pushing with Contractions (Mana Iron, RN) Datetime: 07/30/2016 13:26 Dilatation (cm): 10.0 (Mana Perdue, RN) Effacement (%): 100 (Mana Perdue, RN) Station: 2 (Mana Perdue, RN) Exam by: Diana Perdue RNC (Maan Perdue, RN) Datetime: 07/30/2016 13:16 NBP Sys/Lenka/Mean (mmHg): 145 (QS system process) : 74 (QS system process) : 104 (QS system process) Pulse: 108 (QS system process) LaborFlag: Labor (QS system process) Datetime: 07/30/2016 13:15 Monitor Mode: Internal; Palpation (Mana Perdue RN) Frequency (min): 3-5 (Mana Perdue, RN) Quality: Moderate (Mana Perdue, RN) Duration (sec): 80-120 (Mana Perdue RN) Resting Tone (Palpate): Relaxed (Mana Perdue, RN) Resting Tone IUP (mmHg): 20 (Mana Perdue, RN) Contraction Comments: Intensity 40-75 (Mana Perdue, RN) Monitor Mode: External US (Mana Perdue RN) FHR Baseline Rate : 130 (Mana Perdue, RN) Variability: Minimal - Undetectable to <=5 bpm (Mana Perdue, RN) Decelerations: Early (Mana Perdue, RN) Pitocin (milliunit): Pitocin Remains (milliunits) @ 6 (Mana Perdue RN) Datetime: 07/30/2016 13:08 Communication Comments: Dr Robertson at desk. EFM reviewed, informed SVE, pt reports pressure. No new orders received. (Mana Perdue RN) Datetime: 07/30/2016 13:06 Patient Position/Activity: Tailors (Mana Iron, RN) Datetime: 07/30/2016 13:04 Dilatation (cm): 9.0 (Mana Iron, RN) Effacement (%): 100 (Mana Iron, RN) Station: 2 (Mana Iron, RN) Exam by: AGlen Perdue RNC (Mana Iron, RN) Datetime: 07/30/2016 13:01 NBP Sys/Lenka/Mean (mmHg): 134 (QS system process) : 89 (QS system process) : 106 (QS system process) Pulse: 89 (QS system process) LaborFlag: Labor (QS system process) Datetime: 07/30/2016 13:00 Monitor Mode: Internal; Palpation (Mana Perdue RN) Frequency (min): 3-5 (Mana Perdue RN) Quality: Moderate (Mana Perdue RN) Duration (sec): 70-90 (Mana Perdue RN) Resting Tone (Palpate): Relaxed (Mana Perdue RN) Resting Tone IUP (mmHg): 20 (Mana Perdue, RN) Contraction Comments: Intensity 60-75 (Mana Perdue, RN) Monitor Mode: External US (Mana Perdue RN) FHR Baseline Rate : 130 (Mana Perdue RN) Variability: Minimal - Undetectable to <=5 bpm (Mana Perdue RN) Decelerations: Early (Mana Perdue RN) Pitocin (milliunit): Pitocin Remains (milliunits) @ 6 (Mana Perdue RN) Datetime: 07/30/2016 12:59 Pitocin (milliunit): Pitocin Increased to (milliunits) @ 6 (Mana Perdue, RN) Datetime: 07/30/2016 12:50 Contraction Comments: MVU 155 (Mana Iron, RN) Datetime: 07/30/2016 12:46 NBP Sys/Lenka/Mean (mmHg): 127 (QS system process) : 86 (QS system process) : 103 (QS system process) Pulse: 89 (QS system process) LaborFlag: Labor (QS system process) Datetime: 07/30/2016 12:45 Monitor Mode: Internal; Palpation (Mana Perdue RN) Frequency (min): 2-4 (Mana Perdue RN) Quality: Moderate (Mana Perdue RN) Duration (sec): 60-80 (Mana Perdue, RN) Resting Tone (Palpate): Relaxed (Mana Perdue, RN) Resting Tone IUP (mmHg): 20 (Mana Perdue, RN) Contraction Comments: Intensity 60-75 (Mana Perdue RN) Monitor Mode: External US (Mana Perdue, RN) FHR Baseline Rate : 130 (Mana Perdue, RN) Variability: Minimal - Undetectable to <=5 bpm (Mana Perdue RN) Decelerations: Early (Mana Perdue RN) Pitocin (milliunit): Pitocin Remains (milliunits) @ 4 (Mana Perdue, NATASHA) Datetime: 07/30/2016 12:31 NBP Sys/Lenka/Mean (mmHg): 131 (QS system process) : 83 (QS system process) : 103 (QS system process) Pulse: 85 (QS system process) LaborFlag: Labor (QS system process) Datetime: 07/30/2016 12:30 Monitor Mode: Internal; Palpation (Mana Iron, RN) Frequency (min): 2-4 (Mana Iron, RN) Quality: Moderate (Mana Iron, RN) Duration (sec): 70-100 (Mana Iron, RN) Resting Tone (Palpate): Relaxed (Mana Iron, RN) Resting Tone IUP (mmHg): 20 (Mana Iron, RN) Contraction Comments: Intensity 60-100 (Mana Iron, RN) Monitor Mode: External US (Mana Iron, RN) FHR Baseline Rate : 130 (Mana Iron, RN) Variability: Moderate 6-25 bpm (Mana Iron, RN) Decelerations: Early (Mana Iron, RN) Datetime: 07/30/2016 12:15 Monitor Mode: Internal; Palpation (Mana Iron, RN) Frequency (min): 2-3 (Mana Iron, RN) Quality: Moderate (Mana Iron, RN) Duration (sec): 70-100 (Mana Iron, RN) Resting Tone (Palpate): Relaxed (Mana Iron, RN) Resting Tone IUP (mmHg): 20 (Mana Iron, RN) Contraction Comments: Intensity 65-95 (Mana Iron, RN) Monitor Mode: External US (Mana Iron, RN) FHR Baseline Rate : 135 (Mana Iron, RN) Variability: Moderate 6-25 bpm (Mana Iron, RN) Decelerations: Early (Mana Iron, RN) Pitocin (milliunit): Pitocin Remains (milliunits) @ 4 (Mana Perdue RN) Datetime: 07/30/2016 12:02 Patient Position/Activity: Right Lateral; Peanut Ball (Mana Perdue RN) Datetime: 07/30/2016 12:00 Temperature (F): 98.1 (Mana Perdue RN) Temperature (C): 36.7 (QS system process) Temperature Route: Oral (Mana Perdue RN) Monitor Mode: Internal; Palpation (Mana Perdue RN) Frequency (min): 2-6 (Mana Perdue RN) Quality: Moderate (Mana Perdue RN) Duration (sec): 50-120 (Mana Perdue RN) Resting Tone (Palpate): Relaxed (Mana Perdue RN) Resting Tone IUP (mmHg): 20 (Mana Perdue RN) Contraction Comments: Intensity 40-75 (Mana Perdue RN) Monitor Mode: External US (Mana Perdue RN) FHR Baseline Rate : 120 (Mana Iron, RN) Variability: Moderate 6-25 bpm (Mana Perdue, RN) Decelerations: Early (Mana Perdue RN) Pitocin (milliunit): Pitocin Increased to (milliunits) @ 4 (Mana Perdue, NATASHA) LaborFlag: Labor (QS system process)
--- NOTE | 2016-07-30 17:20 | Admission Physical ---
Datetime Report Generated by CPN: 07/30/2016 17:19 CURRENT ADMISSION Chief Complaint: Uterine Contractions Indication for Induction: Not Applicable Admit Plan: Admit to Unit; Initiate Labor Augmentation Protocol Admit Plan- Other: GBS prophylaxis ALLERGIES Medication Allergies: No Medication Allergies: No Known Allergies (07/30/2016) Latex: No Latex Allergies Food Allergies: None Environmental Allergies: None OBSTETRICAL HISTORY EDC: 08/24/2016 00:00 : 2 Para: 0 Term: 0 : 0 SAB: 1 IAB: 0 Ectopic: 0 Livin Cesareans: 0 VBACs: 0 Multiple Births: 0 Gestational Diabetes: No Rh Sensitization: No Incompetent Cervix: No GEE: No Infertility: No ART Treatment: No Uterine Anomaly: No IUGR: No Hx Previous C/S: No Macrosomia: No Hx Loss/Stillborn: No PIH: No Hx : No Placenta Previa/Abruption: No Depression/PP Depression: No PTL/PROM: No Post Hemorrhage: No Current Procedures: Ultrasound Obstetrical History Comments: G1 - current - AMA SEE RECORDS Alcohol: No Marijuana : No Cocaine: No Other Illicit Drugs: No Cigarettes: Never Smoker. [id number] MEDICAL HISTORY Diabetes: No Blood Transfusion: No Pulmonary Disease (Asthma, TB): No Breast Disease: No Hypertension: Yes [employer] Surgery: No Heart Disease: No Hosp/Surgery: Yes Autoimmune Disorder: No Anesthetic Complications: No Kidney Disease: No Abnormal Pap Smear: No Neuro/Epilepsy: No Psychiatric Disorders: No Other Medical Diseases: No Hepatitis/Liver Disease: No Significant Family History: No Varicosities/Phlebitis: No Trauma/Violence : No Thyroid Dysfunction: No Medical History Comments: Hx Chronic HTN - stopped meds 2012 1999 - Breast reduction INFECTIOUS HISTORY Gonorrhea: No Genital Herpes: No Chlamydia: No Tuberculosis: No Syphilis: No Hepatitis: No HIV/AIDS Exposure: No Rash or Viral Illness: No HPV: No PHYSICAL EXAM General: Normal HEENT: Normal Neurologic: Normal Thyroid: Normal Heart: Normal Lungs: Normal Breast: Normal Back: Normal Abdomen: Normal Genitourinary Exam: Normal Extremities: Normal DTRs: Normal Pelvic Type: Adequate Vital Signs: Reviewed VAGINAL EXAM Dilatation: 6 Effacement: 90 Station: 1 MEMBRANES Pooling: Positive Membranes: Ruptured Amniotic Fluid Color: Clear FETUS A EGA: 36.3 Monitoring: External US FHR- Baseline: 130 Variability: Moderate 6-25bpm Accelerations: 15X15 Decelerations: None FHR Category: Category I Estimated Weight (gm): 2900 Presentation: Vertex PLANS FOR LABOR AND DELIVERY Labor and Delivery: None Pain Management: Epidural Feeding Preference: Breast Benefit of Breast Feed Discussed: Yes Circumcision: N/A INFORMED CONSENT Signature: with User ID: [email or web address]
[2016-07-30] MEDS: FERROUS SULFATE 325 MG TABLET PO SCH (18:13)
[2016-07-30] MEDS: DOCUSATE SODIUM 100 MG CAPSULE PO SCH (18:14)
--- NOTE | 2016-07-30 19:00 | L&D Flow Sheet ---
LD Flowsheet Datetime Report Generated by CPN: 07/30/2016 19:00 Datetime: 07/30/2016 16:01 NBP Sys/[place]/Mean (mmHg): 121 (QS system process) : 81 (QS system process) : 95 (QS system process) Pulse: 105 (QS system process) Respirations: 18 (Mana Iron, RN) Datetime: 07/30/2016 15:46 NBP Sys/[place]/Mean (mmHg): 137 (QS system process) : 75 (QS system process) : 99 (QS system process) Pulse: 93 (QS system process) Datetime: 07/30/2016 15:31 NBP Sys/[place]/Mean (mmHg): 125 (QS system process) : 67 (QS system process) : 89 (QS system process) Pulse: 99 (QS system process) Respirations: 18 (Mana Iron, RN) Datetime: 07/30/2016 15:16 NBP Sys/[place]/Mean (mmHg): 115 (QS system process) : 57 (QS system process) : 82 (QS system process) Pulse: 95 (QS system process) Respirations: 16 (Mana Iron, RN) Datetime: 07/30/2016 15:01 NBP Sys/[place]/Mean (mmHg): 125 (QS system process) : 60 (QS system process) : 86 (QS system process) Pulse: 96 (QS system process) Respirations: 16 (Mana Perdue RN) Temperature (F): 98.5 (Mana Perdue RN) Temperature (C): 36.9 (QS system process) Temperature Route: Oral (Mana Iron, RN) Datetime: 07/30/2016 14:47 NBP Sys/[place]/Mean (mmHg): 119 (QS system process) : 63 (QS system process) : 86 (QS system process) Pulse: 106 (QS system process) Respirations: 18 (Mana Iron, RN) Datetime: 07/30/2016 14:31 Stage of : Recovery (Mana Perdue RN) Pain Scale: 0 (Mana Iron, RN) Pain Presence: None/Denies (Mana Iron, RN) Pain Type: N/A (Mana Perdue, RN) Stage 2 Comments: Intact placenta, to pathology per Dr Neilsen (Mana Perdue, RN) Datetime: 07/30/2016 14:30 Pitocin (milliunit): Pitocin 20 Units in 1000ml NS (Mana Perdue, RN) Datetime: 07/30/2016 14:27 Stage of : Recovery (Mana Iron, RN) Datetime: 07/30/2016 14:26 Monitor Mode: Internal; Palpation (Mana Perdue RN) Frequency (min): 2-3 (Mana Perdue RN) Quality: Moderate to Strong (Mana Perdue RN) Duration (sec): 60-90 (Mana Perdue RN) Resting Tone (Palpate): Relaxed (Mana Perdue RN) Resting Tone IUP (mmHg): 20 (Mana Perdue RN) Monitor Mode: External US (Mana Perdue RN) FHR Baseline Rate : 140 (Mana Perdue RN) Variability: Minimal - Undetectable to <=5 bpm (Mana Perdue RN) Decelerations: Early; Late; Prolonged (Mana Perdue RN) Stage 2 Comments: Pull x 1, removed w/ delivery of head (Mana Perdue RN) Stage 2 Comments: Viable baby girl, see delivery summary (Mana Perdue RN) Datetime: 07/30/2016 14:25 Pushing Progress: with Pushing (Mana Perdue RN) Datetime: 07/30/2016 14:24 Stage 2 Comments: Pull x 1 (Mana Iron, RN) Datetime: 07/30/2016 14:22 Stage 2 Comments: Pull x 1 (Mana Iron, RN) Datetime: 07/30/2016 14:21 Contraction Comments: IUPC removed (Mana Iron, RN) Vacuum: On (Mana Iron, RN) Datetime: 07/30/2016 14:16 NBP Sys/[place]/Mean (mmHg): 124 (QS system process) : 72 (QS system process) : 92 (QS system process) Pulse: 118 (QS system process) LaborFlag: Labor (QS system process) Datetime: 07/30/2016 14:15 Monitor Mode: Internal; Palpation (Mana Perdue RN) Frequency (min): 2-4 (Mana Perdue RN) Quality: Moderate to Strong (Mana Perdue RN) Duration (sec): 60-90 (Mana Perdue RN) Resting Tone (Palpate): Relaxed (Mana Perdue RN) Resting Tone IUP (mmHg): 20 (Mana Perdue, RN) Monitor Mode: External US (Mana Perdue, RN) FHR Baseline Rate : 140 (Mana Perdue RN) Variability: Minimal - Undetectable to <=5 bpm (Mana Perdue RN) Decelerations: Early; Late (Mana Perdue, RN) Pitocin (milliunit): Pitocin Discontinued (Mana Perdue, RN) Oxygen Amount : 10 (Mana Perdue RN) Oxygen Method: Face Mask (Mana Perdue RN) Datetime: 07/30/2016 14:03 Temperature (F): 98.3 (Mana Perdue RN) Temperature (C): 36.8 (QS system process) LaborFlag: Labor (QS system process) Datetime: 07/30/2016 14:00 Monitor Mode: Internal; Palpation (Mana Perdue, RN) Frequency (min): 2-4 (Mana Perdue, RN) Quality: Moderate to Strong (Mana Perdue RN) Duration (sec): 60-90 (Mana Perdue, RN) Resting Tone (Palpate): Relaxed (Mana Perdue, RN) Resting Tone IUP (mmHg): 20 (Mana Perdue, RN) Monitor Mode: External US (Mana Perdue, RN) FHR Baseline Rate : 140 (Mana Perdue, RN) Variability: Minimal - Undetectable to <=5 bpm (Mana Perdue, RN) Decelerations: Early; Late (Mana Perdue, RN) Pitocin (milliunit): Pitocin Remains (milliunits) @ 6 (Mana Perdue, RN) Datetime: 07/30/2016 13:53 Patient Position/Activity: Right Tilt (Mana Perdue RN) Datetime: 07/30/2016 13:46 NBP Sys/[place]/Mean (mmHg): 120 (QS system process) : 56 (QS system process) : 81 (QS system process) Pulse: 98 (QS system process) LaborFlag: Labor (QS system process) Datetime: 07/30/2016 13:45 Monitor Mode: Internal; Palpation (Mana Perdue RN) Frequency (min): 2-3 (Mana Perdue RN) Quality: Moderate to Strong (Mana Perdue RN) Duration (sec): 60-90 (Mana Perdue RN) Resting Tone (Palpate): Relaxed (Mana Perdue RN) Resting Tone IUP (mmHg): 20 (Mana Perdue RN) Monitor Mode: External US (Mana Perdue RN) FHR Baseline Rate : 130 (Mana Perdue RN) Variability: Minimal - Undetectable to <=5 bpm (Mana Perdue RN) Decelerations: Early (Mana Iron, RN) Pitocin (milliunit): Pitocin Remains (milliunits) @ 6 (Mana Perdue, RN) Pushing Position: Pushing with Contractions (Mana Perdue, RN) Pushing Progress: Presenting Part Visible (Mana Perdue, RN) Datetime: 07/30/2016 13:36 IV/Blood Work: IV Bolus Given ml @ 500 (Mana Perdue, RN) Datetime: 07/30/2016 13:33 Patient Position/Activity: Left Tilt (Mana Perdue, RN) Datetime: 07/30/2016 13:32 I/O Interventions: Goodman Discontinued (Mana Perdue RN) Datetime: 07/30/2016 13:31 NBP Sys/[place]/Mean (mmHg): 130 (QS system process) : 82 (QS system process) : 101 (QS system process) Pulse: 100 (QS system process) Communication Comments: Dr Robertson at bedside (Mana Perdue RN) LaborFlag: Labor (QS system process) Datetime: 07/30/2016 13:30 Monitor Mode: Internal; Palpation (Mana Perdue RN) Frequency (min): 2-3 (Mana Perdue RN) Quality: Moderate to Strong (Mana Perdue RN) Duration (sec): 60-90 (Mana Perdue RN) Resting Tone (Palpate): Relaxed (Mana Perdue RN) Resting Tone IUP (mmHg): 20 (Mana Perdue RN) Intensity IUP (mmHg): 75 (Mana Perdue RN) Monitor Mode: External US (Mana Perdue RN) FHR Baseline Rate : 135 (Mana Perdue RN) Variability: Moderate 6-25 bpm (Mana Perdue RN) Decelerations: Early; Variable (Mana Perdue RN) Pitocin (milliunit): Pitocin Remains (milliunits) @ 6 (Mana Perdue RN) Datetime: 07/30/2016 13:29 Comments: RN remains at bedside continuously assessing FHR while pt pushing (Mana Perdue RN) Pushing: Coached on Pushing; Urge to Push (Mana Perdue RN) Pushing Position: Pushing with Contractions (Mana Perdue RN) Datetime: 07/30/2016 13:26 Dilatation (cm): 10.0 (Mana Perdue RN) Effacement (%): 100 (Mana Perdue RN) Station: 2 (Mana Perdue RN) Exam by: Diana Perdue RNC (Mana Perdue RN) Datetime: 07/30/2016 13:16 NBP Sys/[place]/Mean (mmHg): 145 (QS system process) : 74 (QS system process) : 104 (QS system process) Pulse: 108 (QS system process) LaborFlag: Labor (QS system process) Datetime: 07/30/2016 13:15 Monitor Mode: Internal; Palpation (Mana Perdue RN) Frequency (min): 3-5 (Mana Perdue RN) Quality: Moderate (Mana Perdue RN) Duration (sec): 80-120 (Mana Perdeu RN) Resting Tone (Palpate): Relaxed (Mana Perdue RN) Resting Tone IUP (mmHg): 20 (Mana Perdue RN) Contraction Comments: Intensity 40-75 (Mana Perdue RN) Monitor Mode: External US (Mana Perdue RN) FHR Baseline Rate : 130 (Mana Perdue RN) Variability: Minimal - Undetectable to <=5 bpm (Mana Perdue RN) Decelerations: Early (Mana Perdue RN) Pitocin (milliunit): Pitocin Remains (milliunits) @ 6 (Mana Iron, RN) Datetime: 07/30/2016 13:08 Communication Comments: Dr Neilsen at desk. EFM reviewed, informed SVE, pt reports pressure. No new orders received. (Mana Perdue RN) Datetime: 07/30/2016 13:06 Patient Position/Activity: Tailors (Mana Perdue, RN) Datetime: 07/30/2016 13:04 Dilatation (cm): 9.0 (Mana Perdue RN) Effacement (%): 100 (Mana Perdue RN) Station: 2 (Mana Perdue RN) Exam by: Diana Perdue RNC (Mana Perdue RN) Datetime: 07/30/2016 13:01 NBP Sys/[place]/Mean (mmHg): 134 (QS system process) : 89 (QS system process) : 106 (QS system process) Pulse: 89 (QS system process) LaborFlag: Labor (QS system process) Datetime: 07/30/2016 13:00 Monitor Mode: Internal; Palpation (Mana Perdue RN) Frequency (min): 3-5 (Mana Perdue RN) Quality: Moderate (Mana Perdue RN) Duration (sec): 70-90 (Mana Perdue RN) Resting Tone (Palpate): Relaxed (Mana Perdue RN) Resting Tone IUP (mmHg): 20 (Mana Perdue RN) Contraction Comments: Intensity 60-75 (Mana Perdue RN) Monitor Mode: External US (Mana Perdue RN) FHR Baseline Rate : 130 (Mana Iron, RN) Variability: Minimal - Undetectable to <=5 bpm (Mana Iron, RN) Decelerations: Early (Mana Iron, RN) Pitocin (milliunit): Pitocin Remains (milliunits) @ 6 (Mana Perdue, RN) Datetime: 07/30/2016 12:59 Pitocin (milliunit): Pitocin Increased to (milliunits) @ 6 (Mana Iron, RN) Datetime: 07/30/2016 12:50 Contraction Comments: MVU 155 (Mana Iron, RN) Datetime: 07/30/2016 12:46 NBP Sys/[place]/Mean (mmHg): 127 (QS system process) : 86 (QS system process) : 103 (QS system process) Pulse: 89 (QS system process) LaborFlag: Labor (QS system process) Datetime: 07/30/2016 12:45 Monitor Mode: Internal; Palpation (Mana Perdue RN) Frequency (min): 2-4 (Mana Perdue RN) Quality: Moderate (Mana Perdue RN) Duration (sec): 60-80 (Mana Perdue, RN) Resting Tone (Palpate): Relaxed (Mana Perdue RN) Resting Tone IUP (mmHg): 20 (Mana Perdue RN) Contraction Comments: Intensity 60-75 (Mana Perdue RN) Monitor Mode: External US (Mana Perdue, RN) FHR Baseline Rate : 130 (Mana Perdue, RN) Variability: Minimal - Undetectable to <=5 bpm (Mana Perdue RN) Decelerations: Early (Mana Perdue RN) Pitocin (milliunit): Pitocin Remains (milliunits) @ 4 (Mana Perdue RN) Datetime: 07/30/2016 12:31 NBP Sys/[place]/Mean (mmHg): 131 (QS system process) : 83 (QS system process) : 103 (QS system process) Pulse: 85 (QS system process) LaborFlag: Labor (QS system process) Datetime: 07/30/2016 12:30 Monitor Mode: Internal; Palpation (Mana Perdue, RN) Frequency (min): 2-4 (Mana Perdue, RN) Quality: Moderate (Mana Iron, RN) Duration (sec): 70-100 (Manacarmencita Perdue, RN) Resting Tone (Palpate): Relaxed (Manacarmencita Perdue, RN) Resting Tone IUP (mmHg): 20 (Mana Iron, RN) Contraction Comments: Intensity 60-100 (Mana Iron, RN) Monitor Mode: External US (Mana Perdue, RN) FHR Baseline Rate : 130 (Manacarmencita Perdue, RN) Variability: Moderate 6-25 bpm (Mana Iron, RN) Decelerations: Early (Mana Iron, RN) Datetime: 07/30/2016 12:15 Monitor Mode: Internal; Palpation (Mana Iron, RN) Frequency (min): 2-3 (Mana Iron, RN) Quality: Moderate (Mana Iron, RN) Duration (sec): 70-100 (Mana Iron, RN) Resting Tone (Palpate): Relaxed (Mana Iron, RN) Resting Tone IUP (mmHg): 20 (Mana Iron, RN) Contraction Comments: Intensity 65-95 (Mana Iron, RN) Monitor Mode: External US (Mana Iron, RN) FHR Baseline Rate : 135 (Mana Iron, RN) Variability: Moderate 6-25 bpm (Mana Iron, RN) Decelerations: Early (Mana Iron, RN) Pitocin (milliunit): Pitocin Remains (milliunits) @ 4 (Mana Iron, RN) Datetime: 07/30/2016 12:02 Patient Position/Activity: Right Lateral; Peanut Ball (Mana Iron, RN) Datetime: 07/30/2016 12:00 Temperature (F): 98.1 (Mana Perdue RN) Temperature (C): 36.7 (QS system process) Temperature Route: Oral (Mana Perdue RN) Monitor Mode: Internal; Palpation (Mana Perdue RN) Frequency (min): 2-6 (Mana Perdue RN) Quality: Moderate (Mana Perdue RN) Duration (sec): 50-120 (Mana Perdue RN) Resting Tone (Palpate): Relaxed (Mana Perdue RN) Resting Tone IUP (mmHg): 20 (Mana Perdue RN) Contraction Comments: Intensity 40-75 (Mana Perdue RN) Monitor Mode: External US (Mana Perdue RN) FHR Baseline Rate : 120 (Mana Perdue RN) Variability: Moderate 6-25 bpm (Mana Perdue RN) Decelerations: Early (Mana Perdue RN) Pitocin (milliunit): Pitocin Increased to (milliunits) @ 4 (Mana Perdue RN) LaborFlag: Labor (QS system process) Datetime: 07/30/2016 11:58 Antibiotics: Penicillin IV (Units) @ 2.5million units IVPB (Mana Perdue RN) Datetime: 07/30/2016 11:51 Pulse: 90 (QS system process) SpO2 (%): 97 (QS system process) LaborFlag: Labor (QS system process) Datetime: 07/30/2016 11:50 Contraction Comments: MVU 150 (Mana Iron, RN) Datetime: 07/30/2016 11:47 NBP Sys/[place]/Mean (mmHg): 122 (QS system process) : 67 (QS system process) : 88 (QS system process) Pulse: 89 (QS system process) LaborFlag: Labor (QS system process) Datetime: 07/30/2016 11:45 Monitor Mode: Internal; Palpation (Mana Perdue, RN) Frequency (min): 2-5 (Mana Perdue, RN) Quality: Mild/Moderate (Manacarmencita Perdue, RN) Duration (sec): 40-100 (Manacarmencita Perdue, RN) Resting Tone (Palpate): Relaxed (Manacarmencita Perdue, RN) Resting Tone IUP (mmHg): 20 (Manacarmencita Perdue, RN) Contraction Comments: Intensity 40-70 (Manacarmencita Perdue, RN) Monitor Mode: External US (Mana Perdue, RN) FHR Baseline Rate : 140 (Manacarmencita Perdue, RN) Variability: Moderate 6-25 bpm (Manacarmencita Perdue, RN) Decelerations: None (Mana Perdue, RN) Pitocin (milliunit): Pitocin Remains (milliunits) @ 2 (Mana Perdue, RN) Datetime: 07/30/2016 11:36 Pulse: 87 (QS system process) SpO2 (%): 100 (QS system process) LaborFlag: Labor (QS system process) Datetime: 07/30/2016 11:32 NBP Sys/[place]/Mean (mmHg): 122 (QS system process) : 69 (QS system process) : 89 (QS system process) Pulse: 95 (QS system process) LaborFlag: Labor (QS system process) Datetime: 07/30/2016 11:30 Monitor Mode: Internal; Palpation (Mana Perdue RN) Frequency (min): 2-6 (Mana Perdue RN) Quality: Mild/Moderate (Mana Perdue RN) Duration (sec): 50-120 (Mana Perdue RN) Resting Tone (Palpate): Relaxed (Mana Perdue RN) Resting Tone IUP (mmHg): 20 (Mana Perdue RN) Contraction Comments: Intensity 50-75 (Mana Perdue RN) Monitor Mode: External US (Mana Perdue RN) FHR Baseline Rate : 125 (Mana Perdue RN) Variability: Minimal - Undetectable to <=5 bpm (Mana Perdue RN) Decelerations: Early (Mana Perdue RN) Pitocin (milliunit): Pitocin Remains (milliunits) @ 2 (Mana Perdue RN) Datetime: 07/30/2016 11:28 Contraction Comments: MVU 70 (Mana Perdue, RN) Pitocin (milliunit): Pitocin Started (milliunits) @ 2 (Mana Perdue, RN) Datetime: 07/30/2016 11:17 NBP Sys/[place]/Mean (mmHg): 118 (QS system process) : 74 (QS system process) : 91 (QS system process) Pulse: 100 (QS system process) LaborFlag: Labor (QS system process) Datetime: 07/30/2016 11:15 Monitor Mode: Internal; Palpation (Mana Perdue, RN) Frequency (min): 5 (Mana Perdue RN) Quality: Mild/Moderate (Mana Perdue RN) Duration (sec): 90-120 (Mana Perdue RN) Resting Tone (Palpate): Relaxed (Mana Perdue RN) Resting Tone IUP (mmHg): 20 (Mana Perdue RN) Intensity IUP (mmHg): 50 (Mana Perdue RN) Monitor Mode: External US (Mana Perdue RN) FHR Baseline Rate : 115 (Mana Perdue RN) Variability: Minimal - Undetectable to <=5 bpm (Mana Perdue RN) Decelerations: None (Mana Perdue RN) Datetime: 07/30/2016 11:07 Patient Position/Activity: Left Lateral; Peanut Ball (Mana Perdue RN) Datetime: 07/30/2016 11:05 Monitor Interventions for UA: IUPC Inserted (Mana Perdue RN) Dilatation (cm): 6.0 (Mana Perdue RN) Effacement (%): 90 (Mana Perdue RN) Station: 1 (Mana Perdue RN) Exam by: Dr Robertson (Mana Perdue RN) Vaginal Bleeding: Normal Show (Mana Perdue RN) Cervix, Consistency: Soft (Mana Perdue RN) Cervix, Position: Midposition (Mana Perdue RN) Hygiene: Kathrine Care; Underpad Changed (Mana Perdue RN) Datetime: 07/30/2016 11:03 Communication Comments: Dr Robertson at bedside. (Mana Perdue RN) Datetime: 07/30/2016 11:02 NBP Sys/[place]/Mean (mmHg): 113 (QS system process) : 75 (QS system process) : 89 (QS system process) Pulse: 92 (QS system process) LaborFlag: Labor (QS system process) Datetime: 07/30/2016 11:00 Monitor Mode: External; Palpation (Mana Iron, RN) Frequency (min): 3-5 (Mana Iron, RN) Quality: Mild/Moderate (Mana Iron, RN) Duration (sec): 50-80 (Maan Iron, RN) Resting Tone (Palpate): Relaxed (Mana Iron, RN) Monitor Mode: External US (Mana Iron, RN) FHR Baseline Rate : 125 (Mana Iron, RN) Variability: Moderate 6-25 bpm (Mana Iron, RN) Accelerations: 10X10 (Mana Iron, RN) Decelerations: Early (Mana Iron, RN) Datetime: 07/30/2016 10:49 NBP Sys/[place]/Mean (mmHg): 133 (QS system process) : 75 (QS system process) : 98 (QS system process) Pulse: 82 (QS system process) LaborFlag: Labor (QS system process) Datetime: 07/30/2016 10:45 Monitor Mode: External; Palpation (Mana Iron, RN) Frequency (min): 3-5 (Mana Iron, RN) Quality: Mild/Moderate (Mana Iron, RN) Duration (sec): 50-70 (Mana Iron, RN) Resting Tone (Palpate): Relaxed (Mana Iron, RN) Monitor Mode: External US (Mana Iron, RN) FHR Baseline Rate : 125 (Mana Iron, RN) Variability: Minimal - Undetectable to <=5 bpm (Mana Iron, RN) Decelerations: None (Mana Iron, RN) Datetime: 07/30/2016 10:32 NBP Sys/[place]/Mean (mmHg): 137 (QS system process) : 87 (QS system process) : 101 (QS system process) Respirations: 16 (Mana Iron, RN) LaborFlag: Labor (QS system process) Datetime: 07/30/2016 10:30 Monitor Mode: External; Palpation (Mana Iron, RN) Frequency (min): 3-6 (Mana Iron, RN) Quality: Mild/Moderate (Mana Iron, RN) Duration (sec): 50-70 (Mana Iron, RN) Resting Tone (Palpate): Relaxed (Mana Iron, RN) Monitor Mode: External US (Mana Iron, RN) FHR Baseline Rate : 120 (Mana Irno, RN) Variability: Moderate 6-25 bpm (Mana Iron, RN) Decelerations: Early (Mana Iron, RN) Datetime: 07/30/2016 10:17 NBP Sys/[place]/Mean (mmHg): 127 (QS system process) : 81 (QS system process) : 99 (QS system process) Pulse: 78 (QS system process) Respirations: 16 (Mana Iron, RN) LaborFlag: Labor (QS system process) Datetime: 07/30/2016 10:15 Monitor Mode: External; Palpation (Mana Iron, RN) Frequency (min): 3-5 (Mana Iron, RN) Quality: Mild/Moderate (Manacarmencita Perdue, RN) Duration (sec): 50-70 (Manacarmencita Perdue, RN) Resting Tone (Palpate): Relaxed (Mana Perdue, RN) Monitor Mode: External US (Mana Perdue, RN) FHR Baseline Rate : 125 (Manacarmencita Perdue, RN) Variability: Moderate 6-25 bpm (Mana Iron, RN) Decelerations: Early (Mana Iron, RN) Datetime: 07/30/2016 10:03 NBP Sys/[place]/Mean (mmHg): 129 (QS system process) : 80 (QS system process) : 100 (QS system process) Pulse: 90 (QS system process) Respirations: 15 (Mana Perdue RN) Temperature (F): 97.5 (Mana Perdue RN) Temperature (C): 36.4 (QS system process) Temperature Route: Oral (Mana Perdue RN) LaborFlag: Labor (QS system process) Datetime: 07/30/2016 10:00 Monitor Mode: External; Palpation (Mana Perdue RN) Frequency (min): 4-6 (Mana Perdue, RN) Quality: Mild/Moderate (Mana Perdue, RN) Duration (sec): 60-90 (Mana Perdue RN) Resting Tone (Palpate): Relaxed (Mana Perdue RN) Monitor Mode: External US (Mana Perdue RN) FHR Baseline Rate : 125 (Mana Perdue, RN) Variability: Moderate 6-25 bpm (Mana Perdue, RN) Decelerations: Early (Mana Perdue RN) Patient Position/Activity: Right Lateral; Peanut Ball (Mana Perdue, RN) Datetime: 07/30/2016 09:48 NBP Sys/[place]/Mean (mmHg): 119 (QS system process) : 76 (QS system process) : 92 (QS system process) Pulse: 92 (QS system process) LaborFlag: Labor (QS system process) Datetime: 07/30/2016 09:32 NBP Sys/[place]/Mean (mmHg): 114 (QS system process) : 70 (QS system process) : 86 (QS system process) Pulse: 82 (QS system process) Respirations: 18 (Mana Iron, RN) LaborFlag: Labor (QS system process) Datetime: 07/30/2016 09:30 Monitor Mode: External; Palpation (Mana Iron, RN) Frequency (min): 3-5 (Mana Iron, RN) Quality: Mild/Moderate (Mana Iron, RN) Duration (sec): 60-90 (Mana Iron, RN) Resting Tone (Palpate): Relaxed (Mana Iron, RN) Monitor Mode: External US (Mana Iron, RN) FHR Baseline Rate : 130 (Mana Iron, RN) Variability: Minimal - Undetectable to <=5 bpm (Mana Iron, RN) Decelerations: Early (Mana Iron, RN) Datetime: 07/30/2016 09:23 IV/Blood Work: IV Infusing per Order; New IV Bag Hung; IV Bag Number @ 2 (Manacarmencita Perdue, RN) Datetime: 07/30/2016 09:17 NBP Sys/[place]/Mean (mmHg): 117 (QS system process) : 69 (QS system process) : 86 (QS system process) Pulse: 85 (QS system process) Respirations: 17 (Mana Perdue RN) LaborFlag: Labor (QS system process) Datetime: 07/30/2016 09:14 Pain Scale: 0 (Mana Perdue RN) Pain Presence: None/Denies (Mana Perdue RN) Pain Type: N/A (Mana Perdue RN) Pain Assessment Comments: comfortable w/ ctx (Mana Perdue RN) Dilatation (cm): 5.0 (Mana Perdue RN) Effacement (%): 90 (Mana Perdue RN) Station: 0 (Mana Perdue RN) Exam by: Dr Robertson (Mana Perdue RN) Vaginal Bleeding: Normal Show (Mana Perdue RN) Cervix, Consistency: Soft (Mana Perdue RN) Cervix, Position: Midposition (Mana Perdue RN) LaborFlag: Labor (QS system process) Datetime: 07/30/2016 09:12 I/O Interventions: Goodman Cath Inserted (Mana Perdue, RN) Patient Care Comments: 14fr goodman cath inserted by Dr Robertson under sterile technique, secured to left leg, set to gravity drainage. (Mana Perdue, RN) Datetime: 07/30/2016 09:11 NBP Sys/[place]/Mean (mmHg): 118 (QS system process) : 71 (QS system process) : 90 (QS system process) Pulse: 90 (QS system process) LaborFlag: Labor (QS system process) Datetime: 07/30/2016 09:10 NBP Sys/[place]/Mean (mmHg): 116 (QS system process) : 67 (QS system process) : 86 (QS system process) Pulse: 93 (QS system process) Communication Comments: Dr Scott at bedside (Mana Perdue RN) LaborFlag: Labor (QS system process) Datetime: 07/30/2016 09:09 NBP Sys/[place]/Mean (mmHg): 115 (QS system process) : 69 (QS system process) : 87 (QS system process) Pulse: 94 (QS system process) LaborFlag: Labor (QS system process) Datetime: 07/30/2016 09:08 NBP Sys/[place]/Mean (mmHg): 115 (QS system process) : 71 (QS system process) : 87 (QS system process) Pulse: 86 (QS system process) LaborFlag: Labor (QS system process) Datetime: 07/30/2016 09:07 NBP Sys/[place]/Mean (mmHg): 117 (QS system process) : 68 (QS system process) : 87 (QS system process) Pulse: 86 (QS system process) Respirations: 16 (Mana Perdue RN) LaborFlag: Labor (QS system process) Datetime: 07/30/2016 09:06 NBP Sys/[place]/Mean (mmHg): 118 (QS system process) : 68 (QS system process) : 88 (QS system process) Pulse: 96 (QS system process) LaborFlag: Labor (QS system process) Datetime: 07/30/2016 09:05 NBP Sys/[place]/Mean (mmHg): 115 (QS system process) : 66 (QS system process) : 85 (QS system process) Pulse: 89 (QS system process) LaborFlag: Labor (QS system process) Datetime: 07/30/2016 09:04 NBP Sys/[place]/Mean (mmHg): 116 (QS system process) : 64 (QS system process) : 84 (QS system process) Pulse: 89 (QS system process) LaborFlag: Labor (QS system process) Datetime: 07/30/2016 09:03 NBP Sys/[place]/Mean (mmHg): 120 (QS system process) NBP Sys/[place]/Mean (mmHg): 122 (QS system process) : 65 (QS system process) : 68 (QS system process) : 86 (QS system process) : 90 (QS system process) Pulse: 94 (QS system process) Pulse: 96 (QS system process) Respirations: 18 (Mana Perdue RN) LaborFlag: Labor (QS system process) Datetime: 07/30/2016 09:01 NBP Sys/[place]/Mean (mmHg): 139 (QS system process) : 66 (QS system process) : 98 (QS system process) Pulse: 137 (QS system process) Respirations: 18 (Mana Perdue RN) LaborFlag: Labor (QS system process) Datetime: 07/30/2016 09:00 NBP Sys/[place]/Mean (mmHg): 135 (QS system process) NBP Sys/[place]/Mean (mmHg): 142 (QS system process) : 76 (QS system process) : 84 (QS system process) : 100 (QS system process) : 107 (QS system process) Pulse: 100 (QS system process) Pulse: 94 (QS system process) Monitor Mode: External; Palpation (Mana Perdue RN) Frequency (min): 3-5 (Mana Perdue RN) Quality: Moderate (Mana Perdue RN) Duration (sec): 50-80 (Mana Perdue RN) Resting Tone (Palpate): Relaxed (Mana Perdue RN) Monitor Mode: External US (Mana Perdue RN) FHR Baseline Rate : 135 (Mana Perdue RN) Variability: Moderate 6-25 bpm (Mana Perdue RN) Decelerations: None (Mana Perdue RN) Patient Position/Activity: Left Tilt; Supine (Mana Perdue RN) LaborFlag: Labor (QS system process) Datetime: 07/30/2016 08:58 Pulse: 100 (QS system process) Pulse: 96 (QS system process) SpO2 (%): 93 (QS system process) SpO2 (%): 91 (QS system process) LaborFlag: Labor (QS system process) Datetime: 07/30/2016 08:57 NBP Sys/[place]/Mean (mmHg): 131 (QS system process) : 80 (QS system process) : 101 (QS system process) Pulse: 92 (QS system process) LaborFlag: Labor (QS system process) Datetime: 07/30/2016 08:56 NBP Sys/Lenka/Mean (mmHg): 135 (QS system process) : 85 (QS system process) : 105 (QS system process) Pulse: 89 (QS system process) LaborFlag: Labor (QS system process) Datetime: 07/30/2016 08:55 NBP Sys/Lenka/Mean (mmHg): 147 (QS system process) : 85 (QS system process) : 111 (QS system process) Pulse: 96 (QS system process) Respirations: 19 (Mana Perdue RN) Epidural Procedure: Cath Placed; Test Dose (Mana Perdue RN) LaborFlag: Labor (QS system process) Datetime: 07/30/2016 08:53 Pulse: 90 (QS system process) SpO2 (%): 100 (QS system process) LaborFlag: Labor (QS system process) Datetime: 07/30/2016 08:51 Pulse: 88 (QS system process) SpO2 (%): 93 (QS system process) Procedure Type: Epidural (Mana Perdue RN) Procedure Verify: Correct Patient Identity; Correct Side and Site are Marked; Accurate Procedure Consent Form; Agreement on Procedure to be Done; Correct Patient Position; Relevant Images and Results are Properly Labeled and Displayed; Addressed Need to Administer Antibiotics or Fluids for Irrigation; Safety Precautions Based on Patient History or Medication Use (Mana Perdue RN) Anesthesia Plans: Epidural (Mana Perdue RN) Epidural Positioning: Sitting (Mana Perdue RN) LaborFlag: Labor (QS system process) Datetime: 07/30/2016 08:48 Anesthesia Comments: Dr Burgess at bedside (Mana Perdue RN) Datetime: 07/30/2016 08:45 Procedure Type: Epidural (Mana Perdue RN) Procedure Verify: Correct Patient Identity; Accurate Procedure Consent Form; Agreement on Procedure to be Done; Relevant Images and Results are Properly Labeled and Displayed; Addressed Need to Administer Antibiotics or Fluids for Irrigation (Mana Perdue RN) Anesthesia Plans: Epidural (Mana Perdue RN) Anesthesia Comments: Dr Burgess notified of epidural request (Mana Perdue RN) Datetime: 07/30/2016 08:39 I/O Interventions: Up to BR (Mana Perdue RN) Datetime: 07/30/2016 08:30 Monitor Mode: External; Palpation (Mana Perdue RN) Frequency (min): 2-4 (Mana Perdue RN) Quality: Moderate (Mana Perdue RN) Duration (sec): 50-70 (Mana Perdue RN) Resting Tone (Palpate): Relaxed (Mana Perdue RN) Monitor Mode: External US (Mana Perdue RN) FHR Baseline Rate : 135 (Mana Perdue RN) Variability: Moderate 6-25 bpm (Mana Perdue RN) Decelerations: None (Mana Perdue RN) Datetime: 07/30/2016 08:17 I/O Interventions: Up to BR (Mana Perdue RN) Datetime: 07/30/2016 08:16 NBP Sys/Lenka/Mean (mmHg): 140 (QS system process) : 74 (QS system process) : 99 (QS system process) Pulse: 92 (QS system process) Temperature (F): 97.6 (Mana Perdue RN) Temperature (C): 36.4 (QS system process) Temperature Route: Oral (Mana Perdue RN) LaborFlag: Labor (QS system process) Datetime: 07/30/2016 08:00 Monitor Mode: External; Palpation (Latoya Juan, RN) Frequency (min): 3-5 (Latoya Juan, RN) Quality: Moderate (Mana Iron, RN) Duration (sec): 60-80 (Latoya Juan, RN) Resting Tone (Palpate): Relaxed (Mana Iron, RN) Monitor Mode: External US (Latoya Juan, RN) FHR Baseline Rate : 135 (Mana Iron, RN) Variability: Moderate 6-25 bpm (Mana Iron, RN) Accelerations: 15X15 (Latoya Juan, RN) Decelerations: Variable (Mana Iron, RN) Datetime: 07/30/2016 07:58 I/O Interventions: Up to BR (Mana Iron, RN) Datetime: 07/30/2016 07:55 Antibiotics: Penicillin IV (Units) @ 5million units IVPB (Mana Perdue, NATASHA) Datetime: 07/30/2016 07:51 IV/Blood Work: IV Started; IV Bolus Started (Mana Perdue RN) Procedure Type: Epidural (Mana Perdue RN) Procedure Verify: Correct Patient Identity; Accurate Procedure Consent Form; Agreement on Procedure to be Done; Relevant Images and Results are Properly Labeled and Displayed (Mana Perdue RN) Anesthesia Plans: Epidural (Mana Perdue RN) Datetime: 07/30/2016 07:50 Frequency (min): 2-4 (Mana Perdue RN) Pain Scale: 4 (Mana Perdue RN) Pain Presence: Intermittent (Mana Perdue RN) Pain Type: Contraction (Mana Perdue RN) Pain Location: Abdomen (Mana Perdue RN) Pain Goal: 2 (Mana Perdue RN) Pain Relief Measures: Comfort Measures (Mana Perdue RN) Pain Coping: Breathing Through Contractions (Mana Perdue RN) Pain Assessment Comments: Epidural requested (Mana Perdue RN) Membrane Status: Ruptured (Mana Perdue RN) Membranes Ruptured Date/Time: 07/30/2016 05:45 (Mana Perdue RN) Membranes Rupture Method: Spontaneous (Mana Perdue RN) Amniotic Fluid Color: Clear (Mana Perdue RN) Amniotic Fluid Amount: Small (Mana Perdue RN) Amniotic Fluid Odor: Normal (Mana Perdue RN) Vaginal Bleeding: None (Mana Perdue RN) Pool: Negative (Mana Perdue RN) Level of Consciousness: Fully Conscious (Mana Perdue RN) DTR's/Clonus: DTRs 1+; No Clonus (Mana Perdue RN) Headache: Denies (Mana Perdue RN) Breath Sounds, Left: Clear and Equal (Mana Perdue RN) Breath Sounds, Right: Clear and Equal (Mana Perdue RN) Nausea/Vomiting: Denies (Mana Perdue RN) Instructional Method: Verbal; Patient Instructed; Family/Support Person Instructed; Verbalized Understanding (Mana Perdue RN) Plan of Care: Plan of Care Discussed; Vaginal Delivery; Labor; Labor (Mana Perdue RN) Unit Routine: Hurricane to Room; Call No; Bed; Visiting Policy; Phone/Cell Phone Use; Photography; Unit Personnel; Handwashing; Monitoring; IV Pumps; Safety/Fall Risk Prevention; Bathroom Privileges; Medications (Mana Perdue RN) Labor/Induction: Labor Stages; Antibiotic Use (Mana Perdue RN) Pain Management: Epidural; PRN Medications; Pain Scale/Goals; Comfort Measures (Mana Perdue RN) Medications: Antibiotics (Mana Perdue RN) LaborFlag: Labor (QS system process) Datetime: 07/30/2016 07:42 I/O Interventions: Up to BR (Mana Perdue, RN) Datetime: 07/30/2016 07:31 NBP Sys/Lenka/Mean (mmHg): 125 (QS system process) : 80 (QS system process) : 94 (QS system process) Pulse: 97 (QS system process) LaborFlag: Labor (QS system process) Datetime: 07/30/2016 07:30 Monitor Mode: External; Palpation (Latoya Martinez RN) Frequency (min): 2-4 (Mana Perdue RN) Quality: Moderate (Mana Perdue RN) Duration (sec): 60-80 (Latoya Martinez RN) Resting Tone (Palpate): Relaxed (Latoya Martinez RN) Monitor Mode: External US (Mana Iron, RN) FHR Baseline Rate : 130 (Mana Iron, RN) Variability: Moderate 6-25 bpm (Latoya Juan, RN) Accelerations: 15X15 (Latoya Juan, RN) Decelerations: None (Mana Iron, RN) Datetime: 07/30/2016 07:24 I/O Interventions: Up to BR (Mana Iorn, RN) Datetime: 07/30/2016 07:22 Communication Comments: Dr Garcia at desk. Informed pt complaints, FHR, UC pattern, SVE, amnisure pending. No new orders received. (Mana Iron, RN) Datetime: 07/30/2016 07:21 NBP Sys/Lenka/Mean (mmHg): 156 (QS system process) : 80 (QS system process) : 109 (QS system process) Pulse: 93 (QS system process) LaborFlag: Labor (QS system process) Datetime: 07/30/2016 07:18 Dilatation (cm): 3.0 (Mana Perdue RN) Effacement (%): 80 (Mana Perdue RN) Station: 1 (Mana Perdue RN) Exam by: Diana Perdue RNC (Mana Perdue RN) Vaginal Bleeding: None (Mana Perdue RN) Cervix, Consistency: Soft (Mana Perdue RN) Cervix, Position: Posterior (Mana Perdue RN) Datetime: 07/30/2016 07:08 Stage of : Labor (Mana Perdue RN) Station Vacuum/Forceps Applied: +3 (Mana Perdue RN)
[2016-07-30] MEDS: IBUPROFEN 800 MG TABLET PO SCH (21:46)
[2016-07-31] MEDS: IBUPROFEN 800 MG TABLET PO SCH ×3 (06:14→21:10)
--- NOTE | 2016-07-31 06:14 | L&D Current Admission ---
Current Admit Datetime Report Generated by CPN: 07/31/2016 06:00 ADMISSION INFORMATION Current Admit Date/Time: 07/30/2016 07:50 (07/30/2016 08:40:Mana Perdue RN) Reason for Admission: Onset of Labor; Rupture of Membranes; Labor (07/30/2016 08:40:Mana Perdue RN) Chief Complaint: Contractions; Suspected Rupture of Membranes (07/30/2016 08:40:Mana Perdue RN) Medications During : Vitamin (07/30/2016 08:40:Mana Perdue RN) EGA per Dates: 36.3 (07/30/2016 08:40:QS system process) EGA per US: 36.5 (07/30/2016 08:40:QS system process) Method of Arrival: Wheelchair (07/30/2016 08:40:Mana Perdue RN) Reason for Induction: Not Applicable (07/30/2016 08:40:Mana Perdue RN) Records Available: Requested (07/30/2016 08:40:Mana Perdue RN) General Admission Information: Reviewed; Updated; Confirmed (07/30/2016 08:40:Mana Perdue RN) General Admission Reviewed By: Diana Perdue RN (07/30/2016 08:40:Mana Perdue RN) BELONGINGS/ADVANCED DIRECTIVES Valuables/Personal Effects: None (07/30/2016 08:40:Mana Perdue RN) Other Belongings: See belongings consnet (07/30/2016 08:40:Mana Perdue RN) Disposition of Belongings: Kept with Patient (07/30/2016 08:40:Mana Perdue RN) Advance Direct for Healthcare: No, and Wants No Information (07/30/2016 08:40:Mana Perdue RN) Durable Power of Group [employer] Testing: No (07/30/2016 08:40:Mana Perdue RN) Living Will: No (07/30/2016 08:40:Mana Perdue RN) Organ Donor: No (07/30/2016 08:40:Mana Perdue RN) Pt Rights Information Given: Yes (07/30/2016 08:40:Mana Perdue RN) Pt Understands Pt Rights: Yes (07/30/2016 08:40:Mana Perdue RN) LEARNING ASSESSMENT Knowledge Level: Understands L_D Process; Understands Care Activities; Had Pre-Hospital Education; Understands Diagnosis (07/30/2016 08:40:Mana Perdue RN) Barriers to Learning: Pain (07/30/2016 08:40:Mana Perdue RN) Learns Best By: 1 to 1 Instruction; Reading; Group Discussion (07/30/2016 08:40:Mana Perdue RN) Learning Needs: Labor and Delivery Process; Pain Management; Symptoms to Report; Treatment Plan; Medication; Diagnosis; Nutrition; Equipment; Care; Community Resources (07/30/2016 08:40:Mana Perdue RN) DOMESTIC VIOLANCE SCREENING Dom Viol Threatened/Hurt: No (07/30/2016 08:40:Mana Perdue RN) Hx of Abuse/Neglect past 2yrs: No (07/30/2016 08:40:Mana Perdue RN) Feel Unsafe Going Home: No (07/30/2016 08:40:Mana Perdue RN) Addt'l Observ Indicating Abuse: No (07/30/2016 08:40:Mana Perdue RN) Reason Unable to Complete Screen: N/A, Screen Completed (07/30/2016 08:40:Mana Perdue RN) Considered Personal Harm/Suicide: No (07/30/2016 08:40:Mana Perdue RN) NUTRITIONAL/FUNCTIONAL SCREENING Problem with Appetite >5 Days: No (07/30/2016 08:40:Mana Perdue RN) Chew/Swallow Difficulties: No (07/30/2016 08:40:Mana Perdue RN) Inappropriate Wt Gain/Loss: No (07/30/2016 08:40:Mana Perdue RN) Presence Skin Breakdown/Ulcer: No (07/30/2016 08:40:Mana Perdue RN) Special Diet: No (07/30/2016 08:40:Mana Perdue RN) Pt Requests Infection Prevention Practitioner Visit: No (07/30/2016 08:40:Mana Perdue RN) Hx of Any of the Following?: N/A (07/30/2016 08:40:Mana Perdue RN) New Diagnosis of: N/A (07/30/2016 08:40:Mana Perdue RN) Requires Assist w/Ambulation: No (07/30/2016 08:40:Mana Perdue RN) Uses Assist Device to Ambulate: No (07/30/2016 08:40:Mana Perdue RN) Pt Requires Help w/ADL's: No (07/30/2016 08:40:Mana Perdue RN)
--- NOTE | 2016-07-31 06:14 | L&D General Admission ---
General Admit Datetime Report Generated by CPN: 07/31/2016 06:00 INFORMATION Patient Age: 36 (07/30/2016 06:54:QS system process) EDC: 08/24/2016 00:00 (07/30/2016 07:08:Wanda Lawrence RN) EDC per Ultrasound: 08/22/2016 00:00 (07/30/2016 07:08:Mana Perdue RN) : 2 (07/30/2016 07:08:Mana Perdue RN) Para: 0 (07/30/2016 07:08:Mana Perdue RN) Term: 0 (07/30/2016 07:08:Mana Perdue RN) : 0 (07/30/2016 07:08:Mana Perdue RN) Spontaneous Abortions: 1 (07/30/2016 07:08:Mana Perdue RN) Induced Abortions: 0 (07/30/2016 07:08:Mana Perdue RN) Livin (07/30/2016 07:08:Mana Perdue RN) Cesareans: 0 (07/30/2016 07:08:Mana Perdue RN) VBACs: 0 (07/30/2016 07:08:Mana Perdue RN) Ectopic: 0 (07/30/2016 07:08:Mana Perdue RN) Multiple Births: 0 (07/30/2016 07:08:Mana Perdue RN) Baby, Number in Womb: 1 (07/30/2016 07:08:Mana Perdue RN) CARE Primary Pet Care Worker: Other-Lesia (07/30/2016 07:08:Mana Perdue RN) [facility] 07:08:Mana Perdue RN) Month of 1st Visit: 12/12 (07/30/2016 07:08:Mana Perdue RN) Adequate Care: Yes (07/30/2016 07:08:Mana Perdue RN) Prepregnancy Weight (lb): 190 (07/30/2016 07:08:Mana Perdue RN) Prepregnancy Weight (kg): 86.4 (07/30/2016 07:08:QS system process) Height (in): 65 (07/30/2016 07:06:QS system process) ALLERGIES Medication Allergy: No (07/30/2016 07:08:Mnaa Perdue RN) Medication Allergies: No Known Allergies (07/30/2016) (07/30/2016 07:06:QS system process) Latex Allergy: No Latex Allergies (07/30/2016 07:08:Mana Perdue RN) Food Allergies: None (07/30/2016 07:08:Mana Perdue RN) Environmental Allergies: None (07/30/2016 07:08:Mana Perdue RN) COMMUNICATION Primary Language: Russian (07/30/2016 07:08:Mana Perdue RN) Medical Tx Preferred Language: Russian (07/30/2016 07:08:Mana Perdue RN) Communication Barrier(s): None (07/30/2016 07:08:Mana Perdue RN) DEMOGRAPHICS Address: [facility] [address] [address] (07/30/2016 06:54:QS system process) Zipcode: [address] (07/30/2016 06:54:QS system process) Home (07/30/2016 06:54:QS system process) SSN: [id number] (07/30/2016 06:54:QS system process) Next of Kin Name: UNKNOWN UNKNOWN (07/30/2016 06:54:QS system process) Next of Kin (07/30/2016 06:54:QS system process) Next of Kin Relationship: OR (07/30/2016 06:54:QS system process) Date of : 1980 (07/30/2016 06:54:QS system process) Marital Status: Single (07/30/2016 06:54:QS system process) Sex: Female (07/30/2016 06:54:QS system process) Occupation: Healthcare (07/30/2016 07:08:aMna Perdue RN) Race: (07/30/2016 06:54:QS system process) Ethnicity: Non- or (07/30/2016 06:54:QS system process) Christianity: None (07/30/2016 06:54:QS system process) Education: 14 (07/30/2016 07:08:Mana Perdue RN) FOB Involved: Yes (07/30/2016 07:08:Mana Perdue RN) Father of Baby Name: Lyle Yao (07/30/2016 07:08:Mana Perdue RN) DRUG AND ALCOHOL USE Alcohol: No (07/30/2016 07:08:Mana Perdue RN) Cigarettes: Never Smoker. [id number] (07/30/2016 07:08:Mana Perdue RN) Marijuana: No (07/30/2016 07:08:Mana Perdue RN) Cocaine: No (07/30/2016 07:08:Mana Perdue RN) Other Illicit Drugs: No (07/30/2016 07:08:Mana Perdue RN) VACCINE HISTORY Influenza Vaccine: No (07/30/2016 07:08:Mana Perdue RN) Pneumococcal Vaccine: No (07/30/2016 07:08:Mana Perdue RN) Tetanus Vaccine: No (07/30/2016 07:08:Mana Perdue RN) Tdap Vaccine: Yes (07/30/2016 07:08:Mana Perdue RN) Hepatitis B Vaccine: Yes (07/30/2016 07:08:Mana Perdue RN) Insulation Machine Operator: [facility] (07/30/2016 07:08:Mana Perdue RN) Feeding Preference: Breast (07/30/2016 07:08:Mana Perdue RN) Benefit of Breast Feed Discussed: Yes (07/30/2016 07:08:Mana Perdue RN) Circumcision: N/A (07/30/2016 07:08:Mana Perdue RN) Classes Attended: No (07/30/2016 07:08:Mana Perdue RN) Tubal Ligation: No (07/30/2016 07:08:Mana Perdue RN) Tubal Authorization Signed: N/A (07/30/2016 07:08:Mana Perdue RN) Consent: N/A (07/30/2016 07:08:Mana Perdue RN) Consent Signed: N/A (07/30/2016 07:08:Mana Perdue RN) Pain Management Plans: Epidural (07/30/2016 07:08:Mana Perdue RN) Plans for Labor and Delivery: None (07/30/2016 07:08:Mana Perdue RN) Support Person: Lyle Yao (07/30/2016 07:08:Mana Perdue RN) Support Person Relationship: Significant Other (07/30/2016 07:08:Mana Perdue RN) Cultural/Spritual Practice: No (07/30/2016 07:08:Mana Perdue RN) Spir/Cult Dietary Needs: No (07/30/2016 07:08:Mana Perdue RN) LIVING SITUATION/DISCHARGE PLAN Living Arrangements: House (07/30/2016 07:08:Mana Perdue RN) Adequate Access to:: Electric; Heat; Refrigeration; Plumbing/Running water; Phone; Transportation (07/30/2016 07:08:Mana Perdue RN) WIC Program: No (07/30/2016 07:08:Mana Perdue RN) Discharge Vascular Manager Person: Lyle Yao (07/30/2016 07:08:Mana Perdue RN) Person to Help after Discharge: Lyle Yao (07/30/2016 07:08:Mana Perdue RN) Currently Using Commun Resources: No (07/30/2016 07:08:Mana Perdue RN) Outside Agency/Tractor Engine Assembler: No (07/30/2016 07:08:Mana Perdue RN) Car Seat for Discharge: Yes (07/30/2016 07:08:Mana Perdue RN) Adoption Requested: No (07/30/2016 07:08:Mana Perdue RN) Pt Contact w/ Post : N/A (07/30/2016 07:08:Mana Perdue RN) LABS Blood Type: A Positive (07/30/2016 07:08:Mana Perdue RN) Antibody Screen: Negative (07/30/2016 07:08:Mana Perdue RN) Rho(G) this : Not Applicable (07/30/2016 07:08:Mana Perdue RN) Hemoglobin: 13.8 (07/30/2016 07:58:QS system process) Hematocrit: 40.9 (07/30/2016 07:58:QS system process) MCV: 92 (07/30/2016 07:58:QS system process) Group Beta Strep: Drone Results unknown (07/30/2016 07:08:Mana Perdue RN) Gonorrhea: Negative (07/30/2016 07:08:Mana Perdue RN) Chlamydia: Negative (07/30/2016 07:08:Mana Perdue RN) HIV Exposure Test: Negative (07/30/2016 07:08:Mana Perdue RN) HIV Results: NEGATIVE (07/30/2016 07:58:QS system process) Hepatitis B: Negative (07/30/2016 07:08:Mana Perdue RN) Rubella: POSITIVE NEGATIVE IF LESS THAN OR EQUAL TO 9.99 IU/mL POSITIVE IF GREATER THAN OR EQUAL TO 10.0 IU/mL (07/30/2016 07:58:QS system process) Rubella Titer: 42.70 (07/30/2016 07:58:QS system process) Other Lab Procedures/Results: GTT 118 (07/30/2016 07:08:Mana Perdue RN) OB/PREVIOUS HISTORY Previous Procedures: None (07/30/2016 07:08:Mana Perdue RN) Current Procedures: Ultrasound (07/30/2016 07:08:Mana Perdue RN) History of Previous : No (07/30/2016 07:08:Mana Perdue RN) History of Gestational Diabetes: No (07/30/2016 07:08:Mana Perdue RN) History of PIH: No (07/30/2016 07:08:Mana Perdue RN) History of Incompetent Cervix: No (07/30/2016 07:08:Mana Perdue RN) History of Placenta Previa/Abrup: No (07/30/2016 07:08:Mana Perdue RN) History of Macrosomia: No (07/30/2016 07:08:Mana Perdue RN) History of IUGR: No (07/30/2016 07:08:Mana Perdue RN) History of Hemorrhage: No (07/30/2016 07:08:Mana Perdue RN) History of Loss/Stillborn: No (07/30/2016 07:08:Mana Perdue RN) History of : No (07/30/2016 07:08:Mana Perdue RN) History of D (Rh) Sensitization: No (07/30/2016 07:08:Mana Perdue RN) History Recurrent Loss/Stillborn: No (07/30/2016 07:08:Mana Perdue RN) History Depression/PP Depression: No (07/30/2016 07:08:Mana Perdue RN) History of Uterine Anomaly/GEE: No (07/30/2016 07:08:Mana Perdue RN) History of Infertility: No (07/30/2016 07:08:Mana Perdue RN) History of ART Treatment: No (07/30/2016 07:08:Mana Perdue RN) History of GEE: No (07/30/2016 07:08:Mana Perdue RN) Comments Obstetrical History: G1 - current - AMA (07/30/2016 07:08:Mana Perdue RN) MEDICAL HISTORY Med Hx Diabetes: No (07/30/2016 07:08:Mana Perdue RN) Med Hx Hypertension: Yes (07/30/2016 07:08:Mana Perdue RN) Med Hx Heart Disease: No (07/30/2016 07:08:Mana Perdue RN) Med Hx Autoimmune Disorder: No (07/30/2016 07:08:Mana Perdue RN) Med Hx Kidney Disease/UTI: No (07/30/2016 07:08:Mana Perdue RN) Med Hx Neurologic/Epilepsy: No (07/30/2016 07:08:Mana Perdue RN) Med Hx Psychiatric Disorders: No (07/30/2016 07:08:Mana Perdue RN) Med Hx Hepatitis/Liver Disease: No (07/30/2016 07:08:Mana Perdue RN) Med Hx Varicosities/Phlebitis: No (07/30/2016 07:08:Mana Perdue RN) Med Hx Thyroid Dysfunction: No (07/30/2016 07:08:Mana Perdue RN) Med Hx Trauma/Violence: No (07/30/2016 07:08:Mana Perdeu RN) Med Hx Blood Transfusion: No (07/30/2016 07:08:Mana Perdue RN) Med Hx Pulmonary (Asthma,TB): No (07/30/2016 07:08:Mana Perdue RN) Med Hx Breast: No (07/30/2016 07:08:Mana Perdue RN) Med Hx ASPHALT ENGINEER Surgery: No (07/30/2016 07:08:Mana Perdue RN) Med Hx Hospitalization/Surgery: Yes (07/30/2016 07:08:Mana Perdue RN) Med Hx Anesthetic Complications: No (07/30/2016 07:08:Mana Perdue RN) Med Hx Abnormal Pap Smear: No (07/30/2016 07:08:Mana Perdue, RN) Other Medical Diseases: No (07/30/2016 07:08:Mana Perdue RN) Med Hx Significant Family Hx: No (07/30/2016 07:08:Mana Perdue RN) Details of Med/Surg Hx: Hx Chronic HTN - stopped meds 2012 1999 - Breast reduction (07/30/2016 07:08:Mana Perdue RN) INFECTIOUS HISTORY Inf Hx Gonorrhea: No (07/30/2016 07:08:Mana Perdue RN) Inf Hx Chlamydia: No (07/30/2016 07:08:Mana Perdue RN) Inf Hx Syphilis: No (07/30/2016 07:08:Mana Perdue RN) Inf Hx HIV/AIDS: No (07/30/2016 07:08:Mana Perdue RN) Inf Hx Human Papilloma Virus: No (07/30/2016 07:08:Mana Perdue RN) Inf Hx Pt/Partner Genital Herpes: No (07/30/2016 07:08:Mana Perdue RN) Inf Hx Tuberculosis/Exposure: No (07/30/2016 07:08:Mana Perdue RN) Inf Hx Hepatitis B,C: No (07/30/2016 07:08:aMna Perdue RN) Inf Hx Rash or Viral Illness: No (07/30/2016 07:08:Mana Perdue RN) GENETIC HISTORY Gen Hx Age >=35 at MALINDA: Yes (07/30/2016 07:08:Mana Perdue RN) Gen Hx Thalassemia: No (07/30/2016 07:08:Mana Perdue RN) Gen Hx Congenital Heart Defect: No (07/30/2016 07:08:Mana Perdue RN) Gen Hx Neural Tube Defect: No (07/30/2016 07:08:Mana Perdue RN) Gen Hx Down's Syndrome: No (07/30/2016 07:08:Mana Perdue RN) Gen Hx Phil-Sachs: No (07/30/2016 07:08:Mana Perdue RN) Gen Hx Jennie: No (07/30/2016 07:08:Mana Perdue RN) Gen Hx Familial Dysautonomia: No (07/30/2016 07:08:Mana Perdue RN) Gen Hx Sickle Cell Disease/Trait: No (07/30/2016 07:08:Mana Perdue RN) Gen Hx Hemophilia/Blood Disorder: No (07/30/2016 07:08:Mana Perdue RN) Gen Hx Muscular Dystrophy: No (07/30/2016 07:08:Mana Perdue RN) Gen Hx Cystic Fibrosis: No (07/30/2016 07:08:Mana Perdue RN) Gen Hx Huntingtons Chorea: No (07/30/2016 07:08:Mana Perdue RN) Gen Hx Mental Retardation/Autism: No (07/30/2016 07:08:Mana Perdue RN) Gen Hx Tested for Fragile X: No (07/30/2016 07:08:Mana Perdue RN) Gen Hx Other Inher/Chromosomal: No (07/30/2016 07:08:Mana Perdue RN) Gen Hx Maternal Metabolic DO: No (07/30/2016 07:08:Mana Perdue RN) Gen Hx Pt Father or FOB Defect: No (07/30/2016 07:08:Mana Perdue RN) Gen Hx Other Genetic History: No (07/30/2016 07:08:Mana Perdue RN) Gen Hx Drugs/Meds since LMP: No (07/30/2016 07:08:Mana Perdue RN)
--- NOTE | 2016-07-31 06:15 | L&D Care Plan ---
LD CARE PLANS Datetime Report Generated by CPN: 07/31/2016 06:15 Datetime: 07/30/2016 07:56 Pain State: Risk For (Latoya Martinez RN) Related To: Labor and Delivery Process; Surgical Procedure; Complication(s) of ; Disease Process; Treatment and Procedures; Post (Latoya Martinez RN) Goal(s): Patients Pain will be Assessed and Managed; Patient will Verbalize Adequate Relief of Pain or the Ability to Carrington with Current Pain (Latoya Martinez RN) Interventions: Assess Pain Severity on Scale of 0 (None) to 5 (Severe); Assess Type, Location and Intensity of Pain Each Time Client Reports Discomfort and Notify Provider if Unusal Pain Develops; Encourage Proper Breathing and Relaxation Techniques; Offer Alternatives Such as Repositioning, Calm Environment, Massages, Diversional Activities, Ice Pack, Splinting, and Ambulation; Administer Analgesics as Ordered; Assist with Epidural Placement as Appropriate; Evaluate Therapeutic Effectiveness of Medication and Treatments (Latoya Martinez RN) Outcome: Patient will Report Absence or Relief of Pain Consistent with Established Pain Goal (Latoya Martinez RN) Status: Ongoing (Latoya Martinez RN) Outcome: Patient will have a Decrease in Signs and Symptoms of Discomfort (Latoya Martinez RN) Status: Ongoing (Latoya Martinez RN) Outcome: Pain will be Controlled During Procedures (Latoya Martinez RN) Status: Ongoing (Latoya Martinez RN) Anxiety State: Risk For (Latoya Martinez RN) Related To: Labor and Delivery Process; Surgical Procedure; Perceived or Actual Threat to ; Fear of Unknown; Situational Crisis; Medical Interventions; Significant Life Event (Latoya Martinez RN) Goal(s): Patient will have Decreased Anxiety and be able to Function at Acceptable Levels (Latoya Martinez RN) Interventions: Assess Verbal and Nonverbal Behavioral Indicators of Anxiety; Assist Patient to Identify and Verbalize Symptoms of Anxiety; Identify and Demonstrate Techniques to Control Anxiety; Assist Patient with Coping Mechanisms to Manage Anxiety; Provide Theraputic Touch for the Patient; Explain to Patient, Using a Calm Reassuring Approach and Nonmedical Terms, All Activities, Procedures, and Concerns; Instruct Patient and Family about Post Discharge Care, Limitations, Symptoms to Report and Resources Available (Latoya Martinez RN) Outcome: Patient will Identify, Verbalize and Demonstrate Techniques to Control Anxiety (Latoya Martinez RN) Status: Ongoing (Latoya Martinez RN) Outcome: Patient's Posture, Facial Expressions, Gestures and Activity Level will Reflect Decreased Anxiety (Latoya Martinez RN) Status: Ongoing (Latoya Martinez RN) Outcome: Patient will Verbalize a Sense of Control and/or Acceptance of the Situation (Latoya Martinez RN) Status: Ongoing (Latoya Martinez RN) Outcome: Patient will Identify and Utilize Support Person (Latoya Martinez RN) Status: Ongoing (Latoya Martinez RN) Knowledge Deficit State: Risk For (Latoya Martinez RN) Related To: Labor and Delivery Process; Surgical Procedures; Treatment and Procedures; Impending Alterations in Family Dynamics; Feeding and Care; Community Resources and Available Support Mechanisms (Latoya Martinez RN) Goal(s): Patient will Accurately Verbalize Understanding of Plan of Care and Treatment; Patient and Family will Accurately Verbalize Understanding of the Disease Process (Latoya Martinez RN) Interventions: Assess Motivation and Willingness of Patient/Family to Learn; Assess Preferred Learning Mode: One to One Instruction, Reading, Videos, Group Discussion or Demonstration; Assess Barriers to Learning: Pain, Emotional State, Language Barrier, Cognitive Impairment, Visual or Hearing Deficits; Assess Patient and Family Knowledge of Disease Process, Medications and Treatment; Discuss Therapy and/or Treatment Options, Describe Rationale Behind Management, Therapy and Treatment Recommendations; Instruct Patient and Family on Signs and Symptoms to Report; Instruct Patient and Family on Medication Effects and Side Effects; Provide Appropriate and Timely Education Using Multiple Techniques; Provide Patient and Family with Support Group Information and Resources; Give Clear and Thorough Explanations and Demonstrations (Latoya Martinez RN) Outcome: Patient and Family will Verbalize Understanding of Condition, Treatment and Signs and Symptoms to Report (Latoya Martinez RN) Status: Ongoing (Latoya Martinez RN) Outcome: Patient will Identify Perceived Learning Needs and Express Motivation to Learn (Latoya Martinez RN) Status: Ongoing (Latoya Martinez RN) Outcome: Patient will Verbalize Understanding of Desired Content, and/or Performs Desired Skill Prior to Discharge (Latoya Martinez RN) Infection State: Risk For (Latoya Martinez RN) Related To: Surgical Procedures; Prolonged Labor or Induction; Premature/Prolonged Rupture of Membranes; Invasive Procedures; Altered Tissue Integrity (Latoya Martinez RN) Goal(s): The Patient will be Free of Infection, Vital Signs Stable and Lab Work within Normal Parameters (Latoya Martinez RN) Interventions: Instruct and Reinforce Proper Handwashing, Hygiene, and Care Techniques to Patient and Family; Monitor Vital Signs; Monitor Patient for the Following Signs of Infection: Fever, Abdominal Tenderness, Unusual Discharge; Monitor Aminiotic Fluid, Urine and Lochia for Color and Odor; Observe Wounds, Incisions and Invasive Line Sites for Redness, Drainage and Edema; Assess IV Sites per Hospital Policy; Monitor Lab and Test Results and Notify Provider of Abnormal Findings; Assess Nutritional Status and Promote Good Nutrition (Latoya Martinez RN) Outcome: Patient will Remain Free of Infection (Latoya Martinez RN) Status: Ongoing (Latoya Martinez RN) Outcome: Infection will be Recognized Early to Allow for Prompt Treatment (Latoya Martinez RN) Status: Ongoing (Latoya Martinez RN) Outcome: Patient will have Vital Signs Within Expected Range (Latoya Martinez RN) Status: Ongoing (Latoya Martinez RN) Datetime: 07/30/2016 07:54 Pain State: Risk For (Latoya Martinez RN) Related To: Labor and Delivery Process; Surgical Procedure; Complication(s) of ; Disease Process; Treatment and Procedures; Post (Latoya Martinez RN) Goal(s): Patients Pain will be Assessed and Managed; Patient will Verbalize Adequate Relief of Pain or the Ability to Carrington with Current Pain (Latoya Martinez RN) Interventions: Assess Pain Severity on Scale of 0 (None) to 5 (Severe); Assess Type, Location and Intensity of Pain Each Time Client Reports Discomfort and Notify Provider if Unusal Pain Develops; Encourage Proper Breathing and Relaxation Techniques; Offer Alternatives Such as Repositioning, Calm Environment, Massages, Diversional Activities, Ice Pack, Splinting, and Ambulation; Administer Analgesics as Ordered; Assist with Epidural Placement as Appropriate; Evaluate Therapeutic Effectiveness of Medication and Treatments (Latoya Martinez RN) Outcome: Patient will Report Absence or Relief of Pain Consistent with Established Pain Goal (Latoya Martinez RN) Status: Ongoing (Latoya Martinez RN) Outcome: Patient will have a Decrease in Signs and Symptoms of Discomfort (Latoya Martinez RN) Status: Ongoing (Latoya Martinez RN) Outcome: Pain will be Controlled During Procedures (Latoya Martinez RN) Status: Ongoing (Latoya Martinez RN) Anxiety State: Risk For (Latoya Martinez RN) Related To: Labor and Delivery Process; Surgical Procedure; Perceived or Actual Threat to ; Fear of Unknown; Situational Crisis; Medical Interventions; Significant Life Event (Latoya Martinez RN) Goal(s): Patient will have Decreased Anxiety and be able to Function at Acceptable Levels (Latoya Martinez RN) Interventions: Assess Verbal and Nonverbal Behavioral Indicators of Anxiety; Assist Patient to Identify and Verbalize Symptoms of Anxiety; Identify and Demonstrate Techniques to Control Anxiety; Assist Patient with Coping Mechanisms to Manage Anxiety; Provide Theraputic Touch for the Patient; Explain to Patient, Using a Calm Reassuring Approach and Nonmedical Terms, All Activities, Procedures, and Concerns; Instruct Patient and Family about Post Discharge Care, Limitations, Symptoms to Report and Resources Available (Latoya Martinez RN) Outcome: Patient will Identify, Verbalize and Demonstrate Techniques to Control Anxiety (Latoya Martinez RN) Status: Ongoing (Latoya Martinez RN) Outcome: Patient's Posture, Facial Expressions, Gestures and Activity Level will Reflect Decreased Anxiety (Latoya Martinez RN) Status: Ongoing (Latoya Martinez RN) Outcome: Patient will Verbalize a Sense of Control and/or Acceptance of the Situation (Latoya Martinez RN) Status: Ongoing (Latoya Martinez RN) Outcome: Patient will Identify and Utilize Support Person (Latoya Martinez RN) Status: Ongoing (Latoya Martinez RN) Knowledge Deficit State: Risk For (Latoya Martinez RN) Related To: Labor and Delivery Process; Surgical Procedures; Treatment and Procedures; Impending Alterations in Family Dynamics; Feeding and Infant Care; Community Resources and Available Support Mechanisms (Latoya Martinez RN) Goal(s): Patient will Accurately Verbalize Understanding of Plan of Care and Treatment; Patient and Family will Accurately Verbalize Understanding of the Disease Process (Latoya Martinez RN) Interventions: Assess Motivation and Willingness of Patient/Family to Learn; Assess Preferred Learning Mode: One to One Instruction, Reading, Videos, Group Discussion or Demonstration; Assess Barriers to Learning: Pain, Emotional State, Language Barrier, Cognitive Impairment, Visual or Hearing Deficits; Assess Patient and Family Knowledge of Disease Process, Medications and Treatment; Discuss Therapy and/or Treatment Options, Describe Rationale Behind Management, Therapy and Treatment Recommendations; Instruct Patient and Family on Signs and Symptoms to Report; Instruct Patient and Family on Medication Effects and Side Effects; Provide Appropriate and Timely Education Using Multiple Techniques; Provide Patient and Family with Support Group Information and Resources; Give Clear and Thorough Explanations and Demonstrations (Latoya Martinez RN) Outcome: Patient and Family will Verbalize Understanding of Condition, Treatment and Signs and Symptoms to Report (Latoya Martinez RN) Status: Ongoing (Latoya Martinez RN) Outcome: Patient will Identify Perceived Learning Needs and Express Motivation to Learn (Latoya Martinez RN) Status: Ongoing (Latoya Martinez RN) Outcome: Patient will Verbalize Understanding of Desired Content, and/or Performs Desired Skill Prior to Discharge (Latoya Martinez RN) Infection State: Risk For (Latoya Martinez RN) Related To: Surgical Procedures; Prolonged Labor or Induction; Premature/Prolonged Rupture of Membranes; Invasive Procedures; Altered Tissue Integrity (Latoya Martinez RN) Goal(s): The Patient will be Free of Infection, Vital Signs Stable and Lab Work within Normal Parameters (Latoya Martinez RN) Interventions: Instruct and Reinforce Proper Handwashing, Hygiene, and Care Techniques to Patient and Family; Monitor Vital Signs; Monitor Patient for the Following Signs of Infection: Fever, Abdominal Tenderness, Unusual Discharge; Monitor Aminiotic Fluid, Urine and Lochia for Color and Odor; Observe Wounds, Incisions and Invasive Line Sites for Redness, Drainage and Edema; Assess IV Sites per Hospital Policy; Monitor Lab and Test Results and Notify Provider of Abnormal Findings; Assess Nutritional Status and Promote Good Nutrition (Latoya Martinez RN) Outcome: Patient will Remain Free of Infection (Latoya Martinez RN) Status: Ongoing (Latoya Martinez RN) Outcome: Infection will be Recognized Early to Allow for Prompt Treatment (Latoya Martinez RN) Status: Ongoing (Latoya Martinez RN) Outcome: Patient will have Vital Signs Within Expected Range (Latoya Martinez RN) Status: Ongoing (Latoya Martinez RN)
[2016-07-31 07:26] LABS: MEAN CORPUSCULAR VOLUME 92 fl (80-97)
[2016-07-31 07:37] LABS: HEMATOCRIT 35.2 % (36.0-47.0); HEMOGLOBIN 11.8 g/dL (12.0-15.5); HGB HCT DIFFERENCE 0.2; MEAN CORPUSCULAR HEMOGLOBIN 30.9 pg (27.0-33.4); MEAN CORPUSCULAR HGB CONC 33.5 g/dL (32.0-36.0); RED BLOOD COUNT 3.82 10^6/uL (3.72-5.28); RED CELL DISTRIBUTION WIDTH 14.4 % (11.5-14.0); WHITE BLOOD COUNT 13.6 10^3/uL (4.0-10.5)
--- NOTE | 2016-07-31 09:20 | PDOC PROGRESS REPORT ---
Subjective-OB Subjective: Post Delivery Day: 36 year old. Denies any needs at this time Physical Exam (OB) Vital Signs: Temp Pulse Resp BP Pulse Ox 97.8 F 79 15 99/77 L 97 07/31/16 08:19 07/31/16 08:19 07/31/16 08:19 07/31/16 08:19 07/31/16 08:19 Intake & Output 07/30/16 07/31/16 08/01/16 06:59 06:59 06:59 Weight 85.4 kg - PIH/Pre-Eclampsia Clonus: Negative Headache: Absent Epigastric Pain: No Visual Changes: No - Lochia Lochia Amount: Scant < 10 ml Lochia Color: Rubra/Red - Abdomen Description: Soft, Flat Hernia Present: No Bowel Sounds: Normoactive Flatus Presence: Present Stool: No Fundal Description: Firm, Midline Fundal Height: u/u - u/2 Objective-Diagnostic Laboratory: 07/31/16 06:56 07/30/16 07:58 07/30/16 07/30/16 07/31/16 07:58 07:58 06:56 WBC 13.6 H RBC 3.82 Hgb 11.8 L Hct 35.2 L MCV 92 MCH 30.9 MCHC 33.5 RDW 14.4 H Plt Count 186 Sodium 138.0 Potassium 3.9 Chloride 103 Carbon Dioxide 21 L Anion Gap 14 BUN 7 Creatinine 0.66 Est GFR ( Amer) > 60 Est GFR (Non-Af Amer) > 60 Glucose 90 Uric Acid 5.2 Calcium 10.1 Total Bilirubin 0.5 AST 24 ALT 29 Alkaline Phosphatase 170 H Total Protein 7.2 Albumin 3.8 Blood Type A POSITIVE Antibody Screen NEGATIVE
[2016-07-31] MEDS: FERROUS SULFATE 325 MG TABLET PO SCH ×2 (10:12→17:53)
[2016-07-31] MEDS: DOCUSATE SODIUM 100 MG CAPSULE PO SCH ×2 (10:13→17:53)
[2016-07-31] MEDS: PRENATAL VITAMIN W-O CA NO5/FE FUMARATE/FA CAPSULE PO SCH (10:13)
[2016-07-31] MEDS: ACETAMINOPHEN WITH CODEINE #3 TABLET PO PRN (10:13)
[2016-07-31] MEDS: SENNOSIDES/DOCUSATE 8.6-50 MG 1 EACH TABLET PO SCH (10:13)
[2016-08-01] MEDS: IBUPROFEN 800 MG TABLET PO SCH ×2 (05:07→13:02)
--- NOTE | 2016-08-01 06:15 | L&D General Admission ---
General Admit Datetime Report Generated by CPN: 08/01/2016 06:00 INFORMATION Patient Age: 36 (07/30/2016 06:54:QS system process) EDC: 08/24/2016 00:00 (07/30/2016 07:08:Wanda Lawrence RN) EDC per Ultrasound: 08/22/2016 00:00 (07/30/2016 07:08:Mana Perdue RN) : 2 (07/30/2016 07:08:Mana Perdue RN) Para: 0 (07/30/2016 07:08:Mana Perdue RN) Term: 0 (07/30/2016 07:08:Mana Perdue RN) : 0 (07/30/2016 07:08:Mana Perdue RN) Spontaneous Abortions: 1 (07/30/2016 07:08:Mana Perdue RN) Induced Abortions: 0 (07/30/2016 07:08:Mana Perdue RN) Livin (07/30/2016 07:08:Mana Perdue RN) Cesareans: 0 (07/30/2016 07:08:Mana Perdue RN) VBACs: 0 (07/30/2016 07:08:Mana Perdue RN) Ectopic: 0 (07/30/2016 07:08:Mana Perdue RN) Multiple Births: 0 (07/30/2016 07:08:Mana Perdue RN) Baby, Number in Womb: 1 (07/30/2016 07:08:Mana Perdue RN) CARE Primary Armature Rewinder: Other-Lesia (07/30/2016 07:08:Mana Perdue RN) [facility] 07:[facility]:Mana Perdue RN) Month of 1st Visit: 12/12 (07/30/2016 07:08:Mana Perdue RN) Adequate Care: Yes (07/30/2016 07:08:Mana Perdue RN) Prepregnancy Weight (lb): 190 (07/30/2016 07:08:Mana Perdue RN) Prepregnancy Weight (kg): 86.4 (07/30/2016 07:08:QS system process) Height (in): 65 (07/30/2016 07:06:QS system process) ALLERGIES Medication Allergy: No (07/30/2016 07:08:Mana Perdue RN) Medication Allergies: No Known Allergies (07/30/2016) (07/30/2016 07:06:QS system process) Latex Allergy: No Latex Allergies (07/30/2016 07:08:Mana Perdue RN) Food Allergies: None (07/30/2016 07:08:Mana Perdue RN) Environmental Allergies: None (07/30/2016 07:08:Mana Perdue RN) COMMUNICATION Primary Language: Citizen Of [place] (07/30/2016 07:08:Mana Perdue RN) Medical Tx Preferred Language: Citizen Of [place] (07/30/2016 07:08:Mana Perdue RN) Communication Barrier(s): None (07/30/2016 07:08:Mana Perdue RN) DEMOGRAPHICS Address: [facility] [address] [address] (07/30/2016 06:54:QS system process) Zipcode: [id number] (07/30/2016 06:54:QS system process) Home (07/30/2016 06:54:QS system process) SSN: [id number] (07/30/2016 06:54:QS system process) Next of Kin Name: UNKNOWN UNKNOWN (07/30/2016 06:54:QS system process) Next of Kin (07/30/2016 06:54:QS system process) Next of Kin Relationship: OR (07/30/2016 06:54:QS system process) Date of : 1980 (07/30/2016 06:54:QS system process) Marital Status: Single (07/30/2016 06:54:QS system process) Sex: Female (07/30/2016 06:54:QS system process) Occupation: Healthcare (07/30/2016 07:08:Mana Perdue RN) Race: (07/30/2016 06:54:QS system process) Ethnicity: Non- or (07/30/2016 06:54:QS system process) Christianity: None (07/30/2016 06:54:QS system process) Education: 14 (07/30/2016 07:08:Mana Perdue RN) FOB Involved: Yes (07/30/2016 07:08:Mana Perdue RN) Father of Baby Name: Lyle Yao (07/30/2016 07:08:Mana Perdue RN) DRUG AND ALCOHOL USE Alcohol: No (07/30/2016 07:08:Mana Perdue RN) Cigarettes: Never Smoker. [id number] (07/30/2016 07:08:Mana Perdue RN) Marijuana: No (07/30/2016 07:08:Mana Perdue RN) Cocaine: No (07/30/2016 07:08:Mana Perdue RN) Other Illicit Drugs: No (07/30/2016 07:08:Mana Perdue RN) VACCINE HISTORY Influenza Vaccine: No (07/30/2016 07:08:Mana Perdue RN) Pneumococcal Vaccine: No (07/30/2016 07:08:Mana Perdue RN) Tetanus Vaccine: No (07/30/2016 07:08:Mana Perdue RN) Tdap Vaccine: Yes (07/30/2016 07:08:Mana Perdue RN) Hepatitis B Vaccine: Yes (07/30/2016 07:08:Mana Perdue RN) Telegraph Equipment Maintainer: [facility] (07/30/2016 07:08:Mana Perdue RN) Feeding Preference: Breast (07/30/2016 07:08:Mana Perdue RN) Benefit of Breast Feed Discussed: Yes (07/30/2016 07:08:Mana Perdue RN) Circumcision: N/A (07/30/2016 07:08:Mana Perdue RN) Classes Attended: No (07/30/2016 07:08:Mana Perdue RN) Tubal Ligation: No (07/30/2016 07:08:Mana Perdue RN) Tubal Authorization Signed: N/A (07/30/2016 07:08:Mana Perdue RN) Consent: N/A (07/30/2016 07:08:Mana Perdue RN) Consent Signed: N/A (07/30/2016 07:08:Mana Perdue RN) Pain Management Plans: Epidural (07/30/2016 07:08:Mana Perdue RN) Plans for Labor and Delivery: None (07/30/2016 07:08:Mana Perdue RN) Support Person: Lyle Yao (07/30/2016 07:08:Mana Perdue RN) Support Person Relationship: Significant Other (07/30/2016 07:08:Mana Perdue RN) Cultural/Spritual Practice: No (07/30/2016 07:08:Mana Perdue RN) Spir/Cult Dietary Needs: No (07/30/2016 07:08:Mana Perdue RN) LIVING SITUATION/DISCHARGE PLAN Living Arrangements: House (07/30/2016 07:08:Mana Pedrue RN) Adequate Access to:: Electric; Heat; Refrigeration; Plumbing/Running water; Phone; Transportation (07/30/2016 07:08:Mana Perdue RN) WIC Program: No (07/30/2016 07:08:Mana Perdue RN) Discharge Identification Technician Person: Lyle Yao (07/30/2016 07:08:Mana Perdue RN) Person to Help after Discharge: Lyle Yao (07/30/2016 07:08:Mana Perdue RN) Currently Using Commun Resources: No (07/30/2016 07:08:Mana Perdue RN) Outside Agency/Heddle Machine Operator: No (07/30/2016 07:08:Mana Perdue RN) Car Seat for Discharge: Yes (07/30/2016 07:08:Mana Perdue RN) Adoption Requested: No (07/30/2016 07:08:Mana Perdue RN) Pt Contact w/ Post : N/A (07/30/2016 07:08:Mana Perdue RN) LABS Blood Type: A Positive (07/30/2016 07:08:Mana Perdue RN) Antibody Screen: Negative (07/30/2016 07:08:Mana Perdue RN) Rho(G) this : Not Applicable (07/30/2016 07:08:Mana Perdue RN) Hemoglobin: 11.8 L (07/31/2016 06:56:QS system process) Hematocrit: 35.2 L (07/31/2016 06:56:QS system process) MCV: 92 (07/31/2016 06:56:QS system process) Group Beta Strep: Drone Results unknown (07/30/2016 07:08:Mana Perdue RN) Gonorrhea: Negative (07/30/2016 07:08:Mana Perdue RN) Chlamydia: Negative (07/30/2016 07:08:Mana Perdue RN) HIV Exposure Test: Negative (07/30/2016 07:08:Mana Perdue RN) HIV Results: NEGATIVE (07/30/2016 07:58:QS system process) Hepatitis B: Negative (07/30/2016 07:08:Mana Perdue RN) Rubella: POSITIVE NEGATIVE IF LESS THAN OR EQUAL TO 9.99 IU/mL POSITIVE IF GREATER THAN OR EQUAL TO 10.0 IU/mL (07/30/2016 07:58:QS system process) Rubella Titer: 42.70 (07/30/2016 07:58:QS system process) Other Lab Procedures/Results: GTT 118 (07/30/2016 07:08:Mana Perdue RN) OB/PREVIOUS HISTORY Previous Procedures: None (07/30/2016 07:08:Mana Perdue RN) Current Procedures: Ultrasound (07/30/2016 07:08:Mana Perdue RN) History of Previous : No (07/30/2016 07:08:Mana Perdue RN) History of Gestational Diabetes: No (07/30/2016 07:08:Mana Perdue RN) History of PIH: No (07/30/2016 07:08:Mana Perdue RN) History of Incompetent Cervix: No (07/30/2016 07:08:Mana Perdue RN) History of Placenta Previa/Abrup: No (07/30/2016 07:08:Mana Perdue RN) History of Macrosomia: No (07/30/2016 07:08:Mana Perdue RN) History of IUGR: No (07/30/2016 07:08:Mana Perdue RN) History of Hemorrhage: No (07/30/2016 07:08:Mana Perdue RN) History of Loss/Stillborn: No (07/30/2016 07:08:Mana Perdue RN) History of : No (07/30/2016 07:08:Mana Perdue RN) History of D (Rh) Sensitization: No (07/30/2016 07:08:Mana Perdue RN) History Recurrent Loss/Stillborn: No (07/30/2016 07:08:Mana Perdue RN) History Depression/PP Depression: No (07/30/2016 07:08:Mana Perdue RN) History of Uterine Anomaly/GEE: No (07/30/2016 07:08:Mana Perdue RN) History of Infertility: No (07/30/2016 07:08:Mana Perdue RN) History of ART Treatment: No (07/30/2016 07:08:Mana Perdue RN) History of GEE: No (07/30/2016 07:08:Mana Perdue RN) Comments Obstetrical History: G1 - current - AMA (07/30/2016 07:08:Mana Perdue RN) MEDICAL HISTORY Med Hx Diabetes: No (07/30/2016 07:08:Mana Perdue RN) Med Hx Hypertension: Yes (07/30/2016 07:08:Mana Perdue RN) Med Hx Heart Disease: No (07/30/2016 07:08:Mana Perdue RN) Med Hx Autoimmune Disorder: No (07/30/2016 07:08:Mana Perdue RN) Med Hx Kidney Disease/UTI: No (07/30/2016 07:08:Mana Perdue RN) Med Hx Neurologic/Epilepsy: No (07/30/2016 07:08:Mana Perdue RN) Med Hx Psychiatric Disorders: No (07/30/2016 07:08:Mana Perdue RN) Med Hx Hepatitis/Liver Disease: No (07/30/2016 07:08:Mana Perdue RN) Med Hx Varicosities/Phlebitis: No (07/30/2016 07:08:Mana Perdue RN) Med Hx Thyroid Dysfunction: No (07/30/2016 07:08:Mana Perdue RN) Med Hx Trauma/Violence: No (07/30/2016 07:08:Mana Perdue RN) Med Hx Blood Transfusion: No (07/30/2016 07:08:Mana Perdue RN) Med Hx Pulmonary (Asthma,TB): No (07/30/2016 07:08:Mana Perdue RN) Med Hx Breast: No (07/30/2016 07:08:Mana Perdue RN) Med Hx AUTOMAT WATCHER Surgery: No (07/30/2016 07:08:Mana Perdue RN) Med Hx Hospitalization/Surgery: Yes (07/30/2016 07:08:Mana Perdue RN) Med Hx Anesthetic Complications: No (07/30/2016 07:08:Mana Perdue RN) Med Hx Abnormal Pap Smear: No (07/30/2016 07:08:Mana Perdue, RN) Other Medical Diseases: No (07/30/2016 07:08:Mana Perdue RN) Med Hx Significant Family Hx: No (07/30/2016 07:08:Mana Perdue RN) Details of Med/Surg Hx: Hx Chronic HTN - stopped meds 2012 1999 - Breast reduction (07/30/2016 07:08:Mana Perdue RN) INFECTIOUS HISTORY Inf Hx Gonorrhea: No (07/30/2016 07:08:Mana Perdue RN) Inf Hx Chlamydia: No (07/30/2016 07:08:Mana Perdue RN) Inf Hx Syphilis: No (07/30/2016 07:08:Mana Perdue RN) Inf Hx HIV/AIDS: No (07/30/2016 07:08:Mana Perdue RN) Inf Hx Human Papilloma Virus: No (07/30/2016 07:08:Mana Perdue RN) Inf Hx Pt/Partner Genital Herpes: No (07/30/2016 07:08:Mana Perdue RN) Inf Hx Tuberculosis/Exposure: No (07/30/2016 07:08:Mana Perdue RN) Inf Hx Hepatitis B,C: No (07/30/2016 07:08:Mana Perdue RN) Inf Hx Rash or Viral Illness: No (07/30/2016 07:08:Mana Perdue RN) GENETIC HISTORY Gen Hx Age >=35 at MALINDA: Yes (07/30/2016 07:08:Mana Perdue RN) Gen Hx Thalassemia: No (07/30/2016 07:08:Mana Perdue RN) Gen Hx Congenital Heart Defect: No (07/30/2016 07:08:Mana Perdue RN) Gen Hx Neural Tube Defect: No (07/30/2016 07:08:Mana Perdue RN) Gen Hx Down's Syndrome: No (07/30/2016 07:08:Mana Perdue RN) Gen Hx Phil-Sachs: No (07/30/2016 07:08:Mana Perdue RN) Gen Hx Jennie: No (07/30/2016 07:08:Mana Perdue RN) Gen Hx Familial Dysautonomia: No (07/30/2016 07:08:Mana Perdue RN) Gen Hx Sickle Cell Disease/Trait: No (07/30/2016 07:08:Mana Perdue RN) Gen Hx Hemophilia/Blood Disorder: No (07/30/2016 07:08:Mana Perdue RN) Gen Hx Muscular Dystrophy: No (07/30/2016 07:08:Mana Perdue RN) Gen Hx Cystic Fibrosis: No (07/30/2016 07:08:Mana Perdue RN) Gen Hx Huntingtons Chorea: No (07/30/2016 07:08:Mana Perdue RN) Gen Hx Mental Retardation/Autism: No (07/30/2016 07:08:Mana Perdue RN) Gen Hx Tested for Fragile X: No (07/30/2016 07:08:Mana Perdue RN) Gen Hx Other Inher/Chromosomal: No (07/30/2016 07:08:Mana Perdue RN) Gen Hx Maternal Metabolic DO: No (07/30/2016 07:08:Mana Perdue RN) Gen Hx Pt Father or FOB Defect: No (07/30/2016 07:08:Mana Perdue RN) Gen Hx Other Genetic History: No (07/30/2016 07:08:Mana Perdue RN) Gen Hx Drugs/Meds since LMP: No (07/30/2016 07:08:Mana Perdue RN)
[2016-08-01] MEDS: ACETAMINOPHEN WITH CODEINE #3 TABLET PO PRN (08:33)
[2016-08-01 09:01] VITALS: BP 119/83
--- NOTE | 2016-08-01 09:21 | PDOC DISCHARGE SUMMARY ---
Discharge Summary-OB Discharge Date: 08/01/16 - Final Diagnosis (1) Is this a current diagnosis for this admission?: Yes (2) Vacuum extraction, delivered, current hospitalization Is this a current diagnosis for this admission?: Yes - Discharge Medication Home Medications: Vit/Iron Fumarate/FA [ Tablet] 1 tab PO DAILY 07/30/16 Docusate Sodium [Colace 100 mg Capsule] 100 mg PO BID #60 capsule 08/01/16 Ibuprofen [Motrin 800 mg Tablet] 800 mg PO Q8 #60 tablet 08/01/16 Gestational Age: 36.6 Reason(s) for Admission: Onset of Labor, PROM, Other - gbs unknown Procedures: NST Intrapartum Procedure(s): Vacuum Extraction Complication(s): Laceration-Vaginal Laceration-Degree: 1st - Diagnosis Test Laboratory: Temp Pulse Resp BP Pulse Ox 97.9 F 79 16 123/72 100 08/01/16 08:43 08/01/16 08:43 08/01/16 08:43 08/01/16 08:43 08/01/16 08:43 07/30/16 07/30/16 07/31/16 07:10 07:58 06:56 RBC 4.45 3.82 Hgb 13.8 11.8 L Hct 40.9 35.2 L Urine Opiates Screen NEGATIVE - Discharge information/Instructions Discharge Activity: Activity As Tolerated, Pelvic Rest, No tub bath Discharge Diet: Regular Disposition: HOME, SELF-CARE Follow up with: [facility] in: 4, Weeks
[2016-08-01] MEDS: SENNOSIDES/DOCUSATE 8.6-50 MG 1 EACH TABLET PO SCH (10:05)
[2016-08-01] MEDS: DOCUSATE SODIUM 100 MG CAPSULE PO SCH ×2 (10:05→17:08)
[2016-08-01] MEDS: PRENATAL VITAMIN W-O CA NO5/FE FUMARATE/FA CAPSULE PO SCH (10:05)
[2016-08-01] MEDS: FERROUS SULFATE 325 MG TABLET PO SCH ×2 (10:05→17:08)
--- NOTE | 2016-08-02 06:16 | L&D Current Admission ---
Current Admit Datetime Report Generated by CPN: 08/02/2016 06:00 ADMISSION INFORMATION Current Admit Date/Time: 07/30/2016 07:50 (07/30/2016 08:40:Mana Perdue RN) Reason for Admission: Onset of Labor; Rupture of Membranes; Labor (07/30/2016 08:40:Mana Perdue RN) Chief Complaint: Contractions; Suspected Rupture of Membranes (07/30/2016 08:40:Mana Perdue RN) Medications During : Vitamin (07/30/2016 08:40:Mana Perdue RN) EGA per Dates: 36.3 (07/30/2016 08:40:QS system process) EGA per US: 36.5 (07/30/2016 08:40:QS system process) Method of Arrival: Wheelchair (07/30/2016 08:40:Mana Perdue RN) Reason for Induction: Not Applicable (07/30/2016 08:40:Mana Perdue RN) Records Available: Requested (07/30/2016 08:40:Mana Perdue RN) General Admission Information: Reviewed; Updated; Confirmed (07/30/2016 08:40:Mana Perdue RN) General Admission Reviewed By: Diana Perdue RN (07/30/2016 08:40:Mana Perdue RN) BELONGINGS/ADVANCED DIRECTIVES Valuables/Personal Effects: None (07/30/2016 08:40:Mnaa Perdue RN) Other Belongings: See belongings consnet (07/30/2016 08:40:Mana Perdue RN) Disposition of Belongings: Kept with Patient (07/30/2016 08:40:Mana Perdue RN) Advance Direct for Healthcare: No, and Wants No Information (07/30/2016 08:40:Mana Perdue RN) Durable Power of Structural Architect: No (07/30/2016 08:40:Mana Perdue RN) Living Will: No (07/30/2016 08:40:Mana Perdue RN) Organ Donor: No (07/30/2016 08:40:Mana Perdue RN) Pt Rights Information Given: Yes (07/30/2016 08:40:Mana Perdue RN) Pt Understands Pt Rights: Yes (07/30/2016 08:40:Mana Perdue RN) LEARNING ASSESSMENT Knowledge Level: Understands L_D Process; Understands Care Activities; Had Pre-Hospital Education; Understands Diagnosis (07/30/2016 08:40:Mana Perdue RN) Barriers to Learning: Pain (07/30/2016 08:40:Mana Perdue RN) Learns Best By: 1 to 1 Instruction; Reading; Group Discussion (07/30/2016 08:40:Mana Perdue RN) Learning Needs: Labor and Delivery Process; Pain Management; Symptoms to Report; Treatment Plan; Medication; Diagnosis; Nutrition; Equipment; Care; Community Resources (07/30/2016 08:40:Mana Perdue RN) DOMESTIC VIOLANCE SCREENING Dom Viol Threatened/Hurt: No (07/30/2016 08:40:Mana Perdue RN) Hx of Abuse/Neglect past 2yrs: No (07/30/2016 08:40:Mana Perdue RN) Feel Unsafe Going Home: No (07/30/2016 08:40:Mana Perdue RN) Addt'l Observ Indicating Abuse: No (07/30/2016 08:40:Mana Perdue RN) Reason Unable to Complete Screen: N/A, Screen Completed (07/30/2016 08:40:Mana Perdue RN) Considered Personal Harm/Suicide: No (07/30/2016 08:40:Mana Perdue RN) NUTRITIONAL/FUNCTIONAL SCREENING Problem with Appetite >5 Days: No (07/30/2016 08:40:Mana Perdue RN) Chew/Swallow Difficulties: No (07/30/2016 08:40:Mana Perdue RN) Inappropriate Wt Gain/Loss: No (07/30/2016 08:40:Mana Perdue RN) Presence Skin Breakdown/Ulcer: No (07/30/2016 08:40:Mana Perdue RN) Special Diet: No (07/30/2016 08:40:Mana Perdue RN) Pt Requests Reprographics Technician Visit: No (07/30/2016 08:40:Mana Perdue RN) Hx of Any of the Following?: N/A (07/30/2016 08:40:Mana Perdue RN) New Diagnosis of: N/A (07/30/2016 08:40:Mana Perdue RN) Requires Assist w/Ambulation: No (07/30/2016 08:40:Mana Perdue RN) Uses Assist Device to Ambulate: No (07/30/2016 08:40:Mana Perdue RN) Pt Requires Help w/ADL's: No (07/30/2016 08:40:Mana Perdue RN)
--- NOTE | 2016-08-02 06:16 | L&D General Admission ---
General Admit Datetime Report Generated by CPN: 08/02/2016 06:00 INFORMATION Patient Age: 36 (07/30/2016 06:54:QS system process) EDC: 08/24/2016 00:00 (07/30/2016 07:08:Wanda Lawrence RN) EDC per Ultrasound: 08/22/2016 00:00 (07/30/2016 07:08:Mana Perdue RN) : 2 (07/30/2016 07:08:Mana Perdue RN) Para: 0 (07/30/2016 07:08:Mana Perdue RN) Term: 0 (07/30/2016 07:08:Mana Perdue RN) : 0 (07/30/2016 07:08:Mana Perdue RN) Spontaneous Abortions: 1 (07/30/2016 07:08:Mana Perdue RN) Induced Abortions: 0 (07/30/2016 07:08:Mana Perdue RN) Livin (07/30/2016 07:08:Mana Perdue RN) Cesareans: 0 (07/30/2016 07:08:Mana Perdue RN) VBACs: 0 (07/30/2016 07:08:Mana Perdue RN) Ectopic: 0 (07/30/2016 07:08:Mana Perdue RN) Multiple Births: 0 (07/30/2016 07:08:Mana Perdue RN) Baby, Number in Womb: 1 (07/30/2016 07:08:Mana Perdue RN) CARE Primary Machine Cell Tuber: Other-Lesia (07/30/2016 07:08:Mana Perdue RN) [facility]07/30/2016 07:08:Mana Perdue RN) Month of 1st Visit: 12/12 (07/30/2016 07:08:Mana Perdue RN) Adequate Care: Yes (07/30/2016 07:08:Mana Perdue RN) Prepregnancy Weight (lb): 190 (07/30/2016 07:08:Mana Perdue RN) Prepregnancy Weight (kg): 86.4 (07/30/2016 07:08:QS system process) Height (in): 65 (07/30/2016 07:06:QS system process) ALLERGIES Medication Allergy: No (07/30/2016 07:08:Mana Perdue RN) Medication Allergies: No Known Allergies (07/30/2016) (07/30/2016 07:06:QS system process) Latex Allergy: No Latex Allergies (07/30/2016 07:08:Mana Perdue RN) Food Allergies: None (07/30/2016 07:08:Mana Perdue RN) Environmental Allergies: None (07/30/2016 07:08:Mana Perdue RN) COMMUNICATION Primary Language: Canadian (07/30/2016 07:08:Mana Perdue RN) Medical Tx Preferred Language: Canadian (07/30/2016 07:08:Mana Perdue RN) Communication Barrier(s): None (07/30/2016 07:08:Mana Perdue RN) DEMOGRAPHICS Address: [facility] [address] [place] [address] (07/30/2016 06:54:QS system process) Zipcode: [address] (07/30/2016 06:54:QS system process) Home (07/30/2016 06:54:QS system process) SSN: [id number] (07/30/2016 06:54:QS system process) Next of Kin Name: UNKNOWN UNKNOWN (07/30/2016 06:54:QS system process) Next of Kin (07/30/2016 06:54:QS system process) Next of Kin Relationship: OR (07/30/2016 06:54:QS system process) Date of : 1980 (07/30/2016 06:54:QS system process) Marital Status: Single (07/30/2016 06:54:QS system process) Sex: Female (07/30/2016 06:54:QS system process) Occupation: Healthcare (07/30/2016 07:08:Mana Perdue RN) Race: (07/30/2016 06:54:QS system process) Ethnicity: Non- or (07/30/2016 06:54:QS system process) Latter Day: None (07/30/2016 06:54:QS system process) Education: 14 (07/30/2016 07:08:Mana Perdue RN) FOB Involved: Yes (07/30/2016 07:08:Mana Perdue RN) Father of Baby Name: Lyle Yao (07/30/2016 07:08:Mana Perdue RN) DRUG AND ALCOHOL USE Alcohol: No (07/30/2016 07:08:Mana Perdue RN) Cigarettes: Never Smoker. [id number] (07/30/2016 07:08:Mana Perdue RN) Marijuana: No (07/30/2016 07:08:Mana Perdue RN) Cocaine: No (07/30/2016 07:08:Mana Perdue RN) Other Illicit Drugs: No (07/30/2016 07:08:Mana Perdue RN) VACCINE HISTORY Influenza Vaccine: No (07/30/2016 07:08:Mana Perdue RN) Pneumococcal Vaccine: No (07/30/2016 07:08:Mana Perdue RN) Tetanus Vaccine: No (07/30/2016 07:08:Mana Perdue RN) Tdap Vaccine: Yes (07/30/2016 07:08:Mana Perdue RN) Hepatitis B Vaccine: Yes (07/30/2016 07:08:Mana Perdue RN) Home Care Specialist: [facility] (07/30/2016 07:08:Mana Perdue RN) Feeding Preference: Breast (07/30/2016 07:08:Mana Perdue RN) Benefit of Breast Feed Discussed: Yes (07/30/2016 07:08:Mana Perdue RN) Circumcision: N/A (07/30/2016 07:08:Mana Perdue RN) Classes Attended: No (07/30/2016 07:08:Mana Perdue RN) Tubal Ligation: No (07/30/2016 07:08:Mana Perdue RN) Tubal Authorization Signed: N/A (07/30/2016 07:08:Mana Perdue RN) Consent: N/A (07/30/2016 07:08:Mana Perdue RN) Consent Signed: N/A (07/30/2016 07:08:Mana Perdue RN) Pain Management Plans: Epidural (07/30/2016 07:08:Mana Perude RN) Plans for Labor and Delivery: None (07/30/2016 07:08:Mana Perdue RN) Support Person: Lyle Yao (07/30/2016 07:08:Mana Perdue RN) Support Person Relationship: Significant Other (07/30/2016 07:08:Mana Perdue RN) Cultural/Spritual Practice: No (07/30/2016 07:08:Mana Perdue RN) Spir/Cult Dietary Needs: No (07/30/2016 07:08:Mana Perdue RN) LIVING SITUATION/DISCHARGE PLAN Living Arrangements: House (07/30/2016 07:08:Mana Perdue RN) Adequate Access to:: Electric; Heat; Refrigeration; Plumbing/Running water; Phone; Transportation (07/30/2016 07:08:Mana Perdue RN) WIC Program: No (07/30/2016 07:08:Mana Perdue RN) Discharge Crate Icer Person: Lyle Yao (07/30/2016 07:08:Mana Perdue RN) Person to Help after Discharge: Lyle Yao (07/30/2016 07:08:Mana Perdue RN) Currently Using Commun Resources: No (07/30/2016 07:08:Mana Perdue RN) Outside Agency/Carpenter Assistant Installer: No (07/30/2016 07:08:Mana Perdue RN) Car Seat for Discharge: Yes (07/30/2016 07:08:Mana Perdue RN) Adoption Requested: No (07/30/2016 07:08:Mana Perdue RN) Pt Contact w/ Post : N/A (07/30/2016 07:08:Mana Perdue RN) LABS Blood Type: A Positive (07/30/2016 07:08:Mana Perdue RN) Antibody Screen: Negative (07/30/2016 07:08:Mana Perdue RN) Rho(G) this : Not Applicable (07/30/2016 07:08:Mana Perdue RN) Hemoglobin: 11.8 L (07/31/2016 06:56:QS system process) Hematocrit: 35.2 L (07/31/2016 06:56:QS system process) MCV: 92 (07/31/2016 06:56:QS system process) Group Beta Strep: Drone Results unknown (07/30/2016 07:08:Mana Perdue RN) Gonorrhea: Negative (07/30/2016 07:08:Mana Perdue RN) Chlamydia: Negative (07/30/2016 07:08:Mana Perdue RN) HIV Exposure Test: Negative (07/30/2016 07:08:Mana Perdue RN) HIV Results: NEGATIVE (07/30/2016 07:58:QS system process) Hepatitis B: Negative (07/30/2016 07:08:Mana Perdue RN) Rubella: POSITIVE NEGATIVE IF LESS THAN OR EQUAL TO 9.99 IU/mL POSITIVE IF GREATER THAN OR EQUAL TO 10.0 IU/mL (07/30/2016 07:58:QS system process) Rubella Titer: 42.70 (07/30/2016 07:58:QS system process) Other Lab Procedures/Results: GTT 118 (07/30/2016 07:08:Mana Perdue RN) OB/PREVIOUS HISTORY Previous Procedures: None (07/30/2016 07:08:Mana Perdue RN) Current Procedures: Ultrasound (07/30/2016 07:08:Mana Perdue RN) History of Previous : No (07/30/2016 07:08:Mana Perdue RN) History of Gestational Diabetes: No (07/30/2016 07:08:Mana Perdue RN) History of PIH: No (07/30/2016 07:08:Mana Perdue RN) History of Incompetent Cervix: No (07/30/2016 07:08:Mana Perdue RN) History of Placenta Previa/Abrup: No (07/30/2016 07:08:Mana Perdue RN) History of Macrosomia: No (07/30/2016 07:08:Mana Perdue RN) History of IUGR: No (07/30/2016 07:08:Mana Perdue RN) History of Hemorrhage: No (07/30/2016 07:08:Mana Perdue RN) History of Loss/Stillborn: No (07/30/2016 07:08:Mana Perdue RN) History of : No (07/30/2016 07:08:Mana Perdue RN) History of D (Rh) Sensitization: No (07/30/2016 07:08:Mana Perdue RN) History Recurrent Loss/Stillborn: No (07/30/2016 07:08:Mana Perdue RN) History Depression/PP Depression: No (07/30/2016 07:08:Mana Perdue RN) History of Uterine Anomaly/GEE: No (07/30/2016 07:08:Mana Perdue RN) History of Infertility: No (07/30/2016 07:08:Mana Perdue RN) History of ART Treatment: No (07/30/2016 07:08:Mana Perdue RN) History of GEE: No (07/30/2016 07:08:Mana Perdue RN) Comments Obstetrical History: G1 - current - AMA (07/30/2016 07:08:Mana Perdue RN) MEDICAL HISTORY Med Hx Diabetes: No (07/30/2016 07:08:Mana Perdue RN) Med Hx Hypertension: Yes (07/30/2016 07:08:Mana Perdue RN) Med Hx Heart Disease: No (07/30/2016 07:08:Mana Perdue RN) Med Hx Autoimmune Disorder: No (07/30/2016 07:08:Mana Perdue RN) Med Hx Kidney Disease/UTI: No (07/30/2016 07:08:Mana Perdue RN) Med Hx Neurologic/Epilepsy: No (07/30/2016 07:08:Mana Perdue RN) Med Hx Psychiatric Disorders: No (07/30/2016 07:08:Mana Perdue RN) Med Hx Hepatitis/Liver Disease: No (07/30/2016 07:08:Mana Perdue RN) Med Hx Varicosities/Phlebitis: No (07/30/2016 07:08:Mana Perdue RN) Med Hx Thyroid Dysfunction: No (07/30/2016 07:08:Mana Perdue RN) Med Hx Trauma/Violence: No (07/30/2016 07:08:Mana Perdue RN) Med Hx Blood Transfusion: No (07/30/2016 07:08:Mana Perdue RN) Med Hx Pulmonary (Asthma,TB): No (07/30/2016 07:08:Mana Perdue RN) Med Hx Breast: No (07/30/2016 07:08:Mana Perdue RN) Med Hx LAMINATE FLOOR INSTALLER Surgery: No (07/30/2016 07:08:Mana Perdue RN) Med Hx Hospitalization/Surgery: Yes (07/30/2016 07:08:Mana Perdue RN) Med Hx Anesthetic Complications: No (07/30/2016 07:08:Mana Perdue RN) Med Hx Abnormal Pap Smear: No (07/30/2016 07:08:Mana Perdue, RN) Other Medical Diseases: No (07/30/2016 07:08:Mana Perdue RN) Med Hx Significant Family Hx: No (07/30/2016 07:08:Mana Perdue RN) Details of Med/Surg Hx: Hx Chronic HTN - stopped meds 2012 1999 - Breast reduction (07/30/2016 07:08:Mana Perdue RN) INFECTIOUS HISTORY Inf Hx Gonorrhea: No (07/30/2016 07:08:Mana Perdue RN) Inf Hx Chlamydia: No (07/30/2016 07:08:Mana Perdue RN) Inf Hx Syphilis: No (07/30/2016 07:08:Mana Perdue RN) Inf Hx HIV/AIDS: No (07/30/2016 07:08:Mana Perdue RN) Inf Hx Human Papilloma Virus: No (07/30/2016 07:08:Mana Perdue RN) Inf Hx Pt/Partner Genital Herpes: No (07/30/2016 07:08:Mana Perdue RN) Inf Hx Tuberculosis/Exposure: No (07/30/2016 07:08:Mana Perdue RN) Inf Hx Hepatitis B,C: No (07/30/2016 07:08:Mana Perdue RN) Inf Hx Rash or Viral Illness: No (07/30/2016 07:08:Mana Perdue RN) GENETIC HISTORY Gen Hx Age >=35 at MALINDA: Yes (07/30/2016 07:08:Mana Perdue RN) Gen Hx Thalassemia: No (07/30/2016 07:08:Mana Perdue RN) Gen Hx Congenital Heart Defect: No (07/30/2016 07:08:Mana Perdue RN) Gen Hx Neural Tube Defect: No (07/30/2016 07:08:Mana Perdue RN) Gen Hx Down's Syndrome: No (07/30/2016 07:08:Mana Perdue RN) Gen Hx Phil-Sachs: No (07/30/2016 07:08:Mana Perdue RN) Gen Hx Jennie: No (07/30/2016 07:08:Mana Perdue RN) Gen Hx Familial Dysautonomia: No (07/30/2016 07:08:Mana Perdue RN) Gen Hx Sickle Cell Disease/Trait: No (07/30/2016 07:08:Mana Perdue RN) Gen Hx Hemophilia/Blood Disorder: No (07/30/2016 07:08:Mana Perdue RN) Gen Hx Muscular Dystrophy: No (07/30/2016 07:08:Mana Perdue RN) Gen Hx Cystic Fibrosis: No (07/30/2016 07:08:Mana Perdue RN) Gen Hx Huntingtons Chorea: No (07/30/2016 07:08:Mana Perdue RN) Gen Hx Mental Retardation/Autism: No (07/30/2016 07:08:Mana Perdue RN) Gen Hx Tested for Fragile X: No (07/30/2016 07:08:Mana Perdue RN) Gen Hx Other Inher/Chromosomal: No (07/30/2016 07:08:Mana Perdue RN) Gen Hx Maternal Metabolic DO: No (07/30/2016 07:08:Mana Perdue RN) Gen Hx Pt Father or FOB Defect: No (07/30/2016 07:08:Mana Perdue RN) Gen Hx Other Genetic History: No (07/30/2016 07:08:Mana Perdue RN) Gen Hx Drugs/Meds since LMP: No (07/30/2016 07:08:Mana Perdue RN)
[2016-08-02 08:40] LABS: HEPATITIS C VIRUS AB <0.1 s/co ratio (0.0-0.9)
--- NOTE | 2016-08-03 06:15 | L&D General Admission ---
General Admit Datetime Report Generated by CPN: 08/03/2016 06:00 INFORMATION Patient Age: 36 (07/30/2016 06:54:QS system process) EDC: 08/24/2016 00:00 (07/30/2016 07:08:Wanda Lawrence RN) EDC per Ultrasound: 08/22/2016 00:00 (07/30/2016 07:08:Mana Perdue RN) : 2 (07/30/2016 07:08:Mana Perdue RN) Para: 0 (07/30/2016 07:08:Mana Perdue RN) Term: 0 (07/30/2016 07:08:Mana Perdue RN) : 0 (07/30/2016 07:08:Mana Perdue RN) Spontaneous Abortions: 1 (07/30/2016 07:08:Mana Perdue RN) Induced Abortions: 0 (07/30/2016 07:08:Mana Perdue RN) Livin (07/30/2016 07:08:Mana Perdue RN) Cesareans: 0 (07/30/2016 07:08:Mana Perdue RN) VBACs: 0 (07/30/2016 07:08:Mana Perdue RN) Ectopic: 0 (07/30/2016 07:08:Mana Perdue RN) Multiple Births: 0 (07/30/2016 07:08:Mana Perdue RN) Baby, Number in Womb: 1 (07/30/2016 07:08:Mana Perdue RN) CARE Primary Oral And Maxillofacial Surgeon: Other-Lesia (07/30/2016 07:08:Mana Perdue RN) Oral And Maxillofacial Sur[facility] (07/30/2016 07:08:Mana Perdue RN) Month of 1st Visit: 12/12 (07/30/2016 07:08:Mana Perdue RN) Adequate Care: Yes (07/30/2016 07:08:Mana Perdue RN) Prepregnancy Weight (lb): 190 (07/30/2016 07:08:Mana Perdue RN) Prepregnancy Weight (kg): 86.4 (07/30/2016 07:08:QS system process) Height (in): 65 (07/30/2016 07:06:QS system process) ALLERGIES Medication Allergy: No (07/30/2016 07:08:Mana Perdue RN) Medication Allergies: No Known Allergies (07/30/2016) (07/30/2016 07:06:QS system process) Latex Allergy: No Latex Allergies (07/30/2016 07:08:Mana Perdue RN) Food Allergies: None (07/30/2016 07:08:Mana Perdue RN) Environmental Allergies: None (07/30/2016 07:08:Mana Perdue RN) COMMUNICATION Primary Language: Ecuadorean (07/30/2016 07:08:Mana Perdue RN) Medical Tx Preferred Language: Ecuadorean (07/30/2016 07:08:Mana Perdue RN) Communication Barrier(s): None (07/30/2016 07:08:Mana Perdue RN) DEMOGRAPHICS Address: [facility] [address] [address] (07/30/2016 06:54:QS system process) Zipcode: [address] (07/30/2016 06:54:QS system process) Home (07/30/2016 06:54:QS system process) SSN: [id number] (07/30/2016 06:54:QS system process) Next of Kin Name: UNKNOWN UNKNOWN (07/30/2016 06:54:QS system process) Next of Kin (07/30/2016 06:54:QS system process) Next of Kin Relationship: OR (07/30/2016 06:54:QS system process) Date of : 1980 (07/30/2016 06:54:QS system process) Marital Status: Single (07/30/2016 06:54:QS system process) Sex: Female (07/30/2016 06:54:QS system process) Occupation: Healthcare (07/30/2016 07:08:Mana Perdue RN) Race: (07/30/2016 06:54:QS system process) Ethnicity: Non- or (07/30/2016 06:54:QS system process) Synagogue: None (07/30/2016 06:54:QS system process) Education: 14 (07/30/2016 07:08:Mana Perdue RN) FOB Involved: Yes (07/30/2016 07:08:Mana Perdue RN) Father of Baby Name: Lyle Yao (07/30/2016 07:08:Mana Perdue RN) DRUG AND ALCOHOL USE Alcohol: No (07/30/2016 07:08:Mana Perdue RN) Cigarettes: Never Smoker. [id number] (07/30/2016 07:08:Mana Perdue RN) Marijuana: No (07/30/2016 07:08:Mana Perdue RN) Cocaine: No (07/30/2016 07:08:Mana Perdue RN) Other Illicit Drugs: No (07/30/2016 07:08:Mana Perdue RN) VACCINE HISTORY Influenza Vaccine: No (07/30/2016 07:08:Mana Perdue RN) Pneumococcal Vaccine: No (07/30/2016 07:08:Mana Perdue RN) Tetanus Vaccine: No (07/30/2016 07:08:Mana Perdue RN) Tdap Vaccine: Yes (07/30/2016 07:08:Mana Perdue RN) Hepatitis B Vaccine: Yes (07/30/2016 07:08:Mana Perdue RN) Inbound Call Center Representative: [facility] (07/30/2016 07:08:Mana Perdue RN) Feeding Preference: Breast (07/30/2016 07:08:Mana Perdue RN) Benefit of Breast Feed Discussed: Yes (07/30/2016 07:08:Mana Perdue RN) Circumcision: N/A (07/30/2016 07:08:Mana Perdue RN) Classes Attended: No (07/30/2016 07:08:Mana Perdue RN) Tubal Ligation: No (07/30/2016 07:08:Mana Perdue RN) Tubal Authorization Signed: N/A (07/30/2016 07:08:Mana Perdue RN) Consent: N/A (07/30/2016 07:08:Maan Perdue RN) Consent Signed: N/A (07/30/2016 07:08:Mana ePrdue RN) Pain Management Plans: Epidural (07/30/2016 07:08:Mana Perdue RN) Plans for Labor and Delivery: None (07/30/2016 07:08:Mana Perdue RN) Support Person: Lyle Yao (07/30/2016 07:08:Mana Perdue RN) Support Person Relationship: Significant Other (07/30/2016 07:08:Mana Perdue RN) Cultural/Spritual Practice: No (07/30/2016 07:08:Mana Perdue RN) Spir/Cult Dietary Needs: No (07/30/2016 07:08:Mana Perdue RN) LIVING SITUATION/DISCHARGE PLAN Living Arrangements: House (07/30/2016 07:08:Mana Perdue RN) Adequate Access to:: Electric; Heat; Refrigeration; Plumbing/Running water; Phone; Transportation (07/30/2016 07:08:Mana Perdue RN) WIC Program: No (07/30/2016 07:08:Mana Perdue RN) Discharge Scallop Shucker Person: Lyle Yao (07/30/2016 07:08:Mana Perdue RN) Person to Help after Discharge: Lyle Yao (07/30/2016 07:08:Mana Perdue RN) Currently Using Commun Resources: No (07/30/2016 07:08:Mana Perdue RN) Outside Agency/Lapidary Apprentice: No (07/30/2016 07:08:Mana Perdue RN) Car Seat for Discharge: Yes (07/30/2016 07:08:Mana Perdue RN) Adoption Requested: No (07/30/2016 07:08:Mana Perdue RN) Pt Contact w/ Post : N/A (07/30/2016 07:08:Mana Perdue RN) LABS Blood Type: A Positive (07/30/2016 07:08:Mana Perdue RN) Antibody Screen: Negative (07/30/2016 07:08:Mana Perdue RN) Rho(G) this : Not Applicable (07/30/2016 07:08:Mana Perdue RN) Hemoglobin: 11.8 L (07/31/2016 06:56:QS system process) Hematocrit: 35.2 L (07/31/2016 06:56:QS system process) MCV: 92 (07/31/2016 06:56:QS system process) Group Beta Strep: Drone Results unknown (07/30/2016 07:08:Mana Perdue RN) Gonorrhea: Negative (07/30/2016 07:08:Mana Perdue RN) Chlamydia: Negative (07/30/2016 07:08:Mana Perdue RN) HIV Exposure Test: Negative (07/30/2016 07:08:Mana Perdue RN) HIV Results: NEGATIVE (07/30/2016 07:58:QS system process) Hepatitis B: Negative (07/30/2016 07:08:Mana Perdue RN) Rubella: POSITIVE NEGATIVE IF LESS THAN OR EQUAL TO 9.99 IU/mL POSITIVE IF GREATER THAN OR EQUAL TO 10.0 IU/mL (07/30/2016 07:58:QS system process) Rubella Titer: 42.70 (07/30/2016 07:58:QS system process) Other Lab Procedures/Results: GTT 118 (07/30/2016 07:08:Mana Perdue RN) OB/PREVIOUS HISTORY Previous Procedures: None (07/30/2016 07:08:Mana Perdue RN) Current Procedures: Ultrasound (07/30/2016 07:08:Mana Perdue RN) History of Previous : No (07/30/2016 07:08:Mana Perdue RN) History of Gestational Diabetes: No (07/30/2016 07:08:Mana Perdue RN) History of PIH: No (07/30/2016 07:08:Mana Perdue RN) History of Incompetent Cervix: No (07/30/2016 07:08:Mana Perdue RN) History of Placenta Previa/Abrup: No (07/30/2016 07:08:Mana Perdue RN) History of Macrosomia: No (07/30/2016 07:08:Mana Perdue RN) History of IUGR: No (07/30/2016 07:08:Mana Perdue RN) History of Hemorrhage: No (07/30/2016 07:08:Mana Perdue RN) History of Loss/Stillborn: No (07/30/2016 07:08:Mana Perdue RN) History of : No (07/30/2016 07:08:Mana Perdue RN) History of D (Rh) Sensitization: No (07/30/2016 07:08:Mana Perdue RN) History Recurrent Loss/Stillborn: No (07/30/2016 07:08:Mana Perdue RN) History Depression/PP Depression: No (07/30/2016 07:08:Mana Perdue RN) History of Uterine Anomaly/GEE: No (07/30/2016 07:08:Mana Perdue RN) History of Infertility: No (07/30/2016 07:08:Mana Perdue RN) History of ART Treatment: No (07/30/2016 07:08:Mana Perdue RN) History of GEE: No (07/30/2016 07:08:Mana Perdue RN) Comments Obstetrical History: G1 - current - AMA (07/30/2016 07:08:Mana Perdue RN) MEDICAL HISTORY Med Hx Diabetes: No (07/30/2016 07:08:Mana Perdue RN) Med Hx Hypertension: Yes (07/30/2016 07:08:Mana Perdue RN) Med Hx Heart Disease: No (07/30/2016 07:08:Mana Perdue RN) Med Hx Autoimmune Disorder: No (07/30/2016 07:08:Mana Perdue RN) Med Hx Kidney Disease/UTI: No (07/30/2016 07:08:Mana Perdue RN) Med Hx Neurologic/Epilepsy: No (07/30/2016 07:08:Mana Perdue RN) Med Hx Psychiatric Disorders: No (07/30/2016 07:08:Mana Perdue RN) Med Hx Hepatitis/Liver Disease: No (07/30/2016 07:08:Mana Perdue RN) Med Hx Varicosities/Phlebitis: No (07/30/2016 07:08:Mana Perdue RN) Med Hx Thyroid Dysfunction: No (07/30/2016 07:08:Mana Perdue RN) Med Hx Trauma/Violence: No (07/30/2016 07:08:Mana Perdue RN) Med Hx Blood Transfusion: No (07/30/2016 07:08:Mana Perdue RN) Med Hx Pulmonary (Asthma,TB): No (07/30/2016 07:08:Mana Perdue RN) Med Hx Breast: No (07/30/2016 07:08:Mana Perdue RN) Med Hx ORAL AND MAXILLOFACIAL SURGEON Surgery: No (07/30/2016 07:08:Mana Perdue RN) Med Hx Hospitalization/Surgery: Yes (07/30/2016 07:08:Mana Perdue RN) Med Hx Anesthetic Complications: No (07/30/2016 07:08:Mana Perdue RN) Med Hx Abnormal Pap Smear: No (07/30/2016 07:08:Mana Perdue, RN) Other Medical Diseases: No (07/30/2016 07:08:Mana Perdue RN) Med Hx Significant Family Hx: No (07/30/2016 07:08:Mana Perdue RN) Details of Med/Surg Hx: Hx Chronic HTN - stopped meds 2012 1999 - Breast reduction (07/30/2016 07:08:Mana Perdue RN) INFECTIOUS HISTORY Inf Hx Gonorrhea: No (07/30/2016 07:08:Mana Perdue RN) Inf Hx Chlamydia: No (07/30/2016 07:08:Mana Perdue RN) Inf Hx Syphilis: No (07/30/2016 07:08:Mana Perdue RN) Inf Hx HIV/AIDS: No (07/30/2016 07:08:Mana Perdue RN) Inf Hx Human Papilloma Virus: No (07/30/2016 07:08:Mana Perdue RN) Inf Hx Pt/Partner Genital Herpes: No (07/30/2016 07:08:Mana Perdue RN) Inf Hx Tuberculosis/Exposure: No (07/30/2016 07:08:Mana Perdue RN) Inf Hx Hepatitis B,C: No (07/30/2016 07:08:Mana Perdue RN) Inf Hx Rash or Viral Illness: No (07/30/2016 07:08:Mana Perdue RN) GENETIC HISTORY Gen Hx Age >=35 at MALINDA: Yes (07/30/2016 07:08:Mana Perdue RN) Gen Hx Thalassemia: No (07/30/2016 07:08:Mana Perdue RN) Gen Hx Congenital Heart Defect: No (07/30/2016 07:08:Mana Perdue RN) Gen Hx Neural Tube Defect: No (07/30/2016 07:08:Mana Perdue RN) Gen Hx Down's Syndrome: No (07/30/2016 07:08:Mana Perdue RN) Gen Hx Phil-Sachs: No (07/30/2016 07:08:Mana Perdue RN) Gen Hx Jennie: No (07/30/2016 07:08:Mana Perdue RN) Gen Hx Familial Dysautonomia: No (07/30/2016 07:08:Mana Perdue RN) Gen Hx Sickle Cell Disease/Trait: No (07/30/2016 07:08:Mana Perdue RN) Gen Hx Hemophilia/Blood Disorder: No (07/30/2016 07:08:Mana Perdue RN) Gen Hx Muscular Dystrophy: No (07/30/2016 07:08:Mana Perdue RN) Gen Hx Cystic Fibrosis: No (07/30/2016 07:08:Mana Perdue RN) Gen Hx Huntingtons Chorea: No (07/30/2016 07:08:Mana Perdue RN) Gen Hx Mental Retardation/Autism: No (07/30/2016 07:08:Mana Perdue RN) Gen Hx Tested for Fragile X: No (07/30/2016 07:08:Mana Perdue RN) Gen Hx Other Inher/Chromosomal: No (07/30/2016 07:08:Mana Perdue RN) Gen Hx Maternal Metabolic DO: No (07/30/2016 07:08:Mana Perdue RN) Gen Hx Pt Father or FOB Defect: No (07/30/2016 07:08:Mana Perdue RN) Gen Hx Other Genetic History: No (07/30/2016 07:08:Mana Perdue RN) Gen Hx Drugs/Meds since LMP: No (07/30/2016 07:08:Mana Perdue RN)
--- NOTE | 2016-08-04 06:21 | L&D Current Admission ---
Current Admit Datetime Report Generated by CPN: 08/04/2016 06:00 ADMISSION INFORMATION Current Admit Date/Time: 07/30/2016 07:50 (07/30/2016 08:40:Mana Perdue RN) Reason for Admission: Onset of Labor; Rupture of Membranes; Labor (07/30/2016 08:40:Mana Perdue RN) Chief Complaint: Contractions; Suspected Rupture of Membranes (07/30/2016 08:40:Mana Perdue RN) Medications During : Vitamin (07/30/2016 08:40:Mana Perdue RN) EGA per Dates: 36.3 (07/30/2016 08:40:QS system process) EGA per US: 36.5 (07/30/2016 08:40:QS system process) Method of Arrival: Wheelchair (07/30/2016 08:40:Mana Perdue RN) Reason for Induction: Not Applicable (07/30/2016 08:40:Mana Perdue RN) Records Available: Requested (07/30/2016 08:40:Mana Perdue RN) General Admission Information: Reviewed; Updated; Confirmed (07/30/2016 08:40:Mana Perdue RN) General Admission Reviewed By: Diana Perdue RN (07/30/2016 08:40:Mana Perdue RN) BELONGINGS/ADVANCED DIRECTIVES Valuables/Personal Effects: None (07/30/2016 08:40:Mana Perdue RN) Other Belongings: See belongings consnet (07/30/2016 08:40:Mana Perdue RN) Disposition of Belongings: Kept with Patient (07/30/2016 08:40:Mana Perdue RN) Advance Direct for Healthcare: No, and Wants No Information (07/30/2016 08:40:Mana Perdue RN) Durable Power of Refinery Operator Crude Unit: No (07/30/2016 08:40:Mana Perdue RN) Living Will: No (07/30/2016 08:40:Mana Perdue RN) Organ Donor: No (07/30/2016 08:40:Mana Perdue RN) Pt Rights Information Given: Yes (07/30/2016 08:40:Mana Perdue RN) Pt Understands Pt Rights: Yes (07/30/2016 08:40:Mana Perdue RN) LEARNING ASSESSMENT Knowledge Level: Understands L_D Process; Understands Care Activities; Had Pre-Hospital Education; Understands Diagnosis (07/30/2016 08:40:Mana Perdue RN) Barriers to Learning: Pain (07/30/2016 08:40:Mana Perdue RN) Learns Best By: 1 to 1 Instruction; Reading; Group Discussion (07/30/2016 08:40:Mana Perdue RN) Learning Needs: Labor and Delivery Process; Pain Management; Symptoms to Report; Treatment Plan; Medication; Diagnosis; Nutrition; Equipment; Care; Community Resources (07/30/2016 08:40:Mana Perdue RN) DOMESTIC VIOLANCE SCREENING Dom Viol Threatened/Hurt: No (07/30/2016 08:40:aMna Perdue RN) Hx of Abuse/Neglect past 2yrs: No (07/30/2016 08:40:Mana Perdue RN) Feel Unsafe Going Home: No (07/30/2016 08:40:Mana Perdue RN) Addt'l Observ Indicating Abuse: No (07/30/2016 08:40:Mana Perdue RN) Reason Unable to Complete Screen: N/A, Screen Completed (07/30/2016 08:40:Mana Perdue RN) Considered Personal Harm/Suicide: No (07/30/2016 08:40:Mana Perdue RN) NUTRITIONAL/FUNCTIONAL SCREENING Problem with Appetite >5 Days: No (07/30/2016 08:40:Mana Perdue RN) Chew/Swallow Difficulties: No (07/30/2016 08:40:Mana Perdue RN) Inappropriate Wt Gain/Loss: No (07/30/2016 08:40:Mana Perdue RN) Presence Skin Breakdown/Ulcer: No (07/30/2016 08:40:Mana Perdue RN) Special Diet: No (07/30/2016 08:40:Mana Perdue RN) Pt Requests Speech Language Pathologist Assistant Visit: No (07/30/2016 08:40:Mana Perdue RN) Hx of Any of the Following?: N/A (07/30/2016 08:40:Mana Perdue RN) New Diagnosis of: N/A (07/30/2016 08:40:Mana Perdue RN) Requires Assist w/Ambulation: No (07/30/2016 08:40:Mana Perdue RN) Uses Assist Device to Ambulate: No (07/30/2016 08:40:Mana Perdue RN) Pt Requires Help w/ADL's: No (07/30/2016 08:40:Mana Perdue RN)
--- NOTE | 2016-08-04 06:21 | L&D General Admission ---
General Admit Datetime Report Generated by CPN: 08/04/2016 06:00 INFORMATION Patient Age: 36 (07/30/2016 06:54:QS system process) EDC: 08/24/2016 00:00 (07/30/2016 07:08:Wanda Lawrence RN) EDC per Ultrasound: 08/22/2016 00:00 (07/30/2016 07:08:Mana Perdue RN) : 2 (07/30/2016 07:08:Mana Perdue RN) Para: 0 (07/30/2016 07:08:Mana Perdue RN) Term: 0 (07/30/2016 07:08:Mana Perdue RN) : 0 (07/30/2016 07:08:Mana Perdue RN) Spontaneous Abortions: 1 (07/30/2016 07:08:Mana Perdue RN) Induced Abortions: 0 (07/30/2016 07:08:Mana Perdue RN) Livin (07/30/2016 07:08:Mana Perdue RN) Cesareans: 0 (07/30/2016 07:08:Mana Perdue RN) VBACs: 0 (07/30/2016 07:08:Mana Perdue RN) Ectopic: 0 (07/30/2016 07:08:Mana Perdue RN) Multiple Births: 0 (07/30/2016 07:08:Mana Perdue RN) Baby, Number in Womb: 1 (07/30/2016 07:08:Mana Perdue RN) CARE Primary Bulb Grader: Other-Lesia (07/30/2016 07:08:Mana Perdue RN) Bulb Grader [facility]: [facility] (07/30/2016 07:08:Mana Perdue RN) Month of 1st Visit: 12/12 (07/30/2016 07:08:Mana Perdue RN) Adequate Care: Yes (07/30/2016 07:08:Mana Perdue RN) Prepregnancy Weight (lb): 190 (07/30/2016 07:08:Mana Perdue RN) Prepregnancy Weight (kg): 86.4 (07/30/2016 07:08:QS system process) Height (in): 65 (07/30/2016 07:06:QS system process) ALLERGIES Medication Allergy: No (07/30/2016 07:08:Mana Perdue RN) Medication Allergies: No Known Allergies (07/30/2016) (07/30/2016 07:06:QS system process) Latex Allergy: No Latex Allergies (07/30/2016 07:08:Mana Perdue RN) Food Allergies: None (07/30/2016 07:08:Mana Perdue RN) Environmental Allergies: None (07/30/2016 07:08:Mana Perdue RN) COMMUNICATION Primary Language: Lithuanian (07/30/2016 07:08:Mana Perdue RN) Medical Tx Preferred Language: Lithuanian (07/30/2016 07:08:Mana Perdue RN) Communication Barrier(s): None (07/30/2016 07:08:Mana Perdue RN) DEMOGRAPHICS Address: [facility] [address] [place] [address] (07/30/2016 06:54:QS system process) Zipcode: [address] (07/30/2016 06:54:QS system process) Home (07/30/2016 06:54:QS system process) SSN: [id number] (07/30/2016 06:54:QS system process) Next of Kin Name: UNKNOWN UNKNOWN (07/30/2016 06:54:QS system process) Next of Kin (07/30/2016 06:54:QS system process) Next of Kin Relationship: OR (07/30/2016 06:54:QS system process) Date of : 1980 (07/30/2016 06:54:QS system process) Marital Status: Single (07/30/2016 06:54:QS system process) Sex: Female (07/30/2016 06:54:QS system process) 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 [id number] (07/30/2016 07:08:Mana Perdue RN) Marijuana: No (07/30/2016 07:08:Mana Perdue RN) Cocaine: No (07/30/2016 07:08:Mana Perdue RN) Other Illicit Drugs: No (07/30/2016 07:08:Mana Perdue RN) VACCINE HISTORY Influenza Vaccine: No (07/30/2016 07:08:Mana Perdue RN) Pneumococcal Vaccine: No (07/30/2016 07:08:Mana Perdue RN) Tetanus Vaccine: No (07/30/2016 07:08:Mana Perdue RN) Tdap Vaccine: Yes (07/30/2016 07:08:Mana Perdue RN) Hepatitis B Vaccine: Yes (07/30/2016 07:08:Mana Perdue RN) Cut Off Saw Operator Metal: [facility] (07/30/2016 07:08:Mana Perdue RN) Feeding Preference: Breast (07/30/2016 07:08:Mana Perdue RN) Benefit of Breast Feed Discussed: Yes (07/30/2016 07:08:Mana Perdue RN) Circumcision: N/A (07/30/2016 07:08:Mana Perdue RN) Classes Attended: No (07/30/2016 07:08:Mana Perdue RN) Tubal Ligation: No (07/30/2016 07:08:Mana Perdue RN) Tubal Authorization Signed: N/A (07/30/2016 07:08:Mana Perdue RN) Consent: N/A (07/30/2016 07:08:Mana Perdue RN) Consent Signed: N/A (07/30/2016 07:08:Mana Perdue RN) Pain Management Plans: Epidural (07/30/2016 07:08:Mana Perdue RN) Plans for Labor and Delivery: None (07/30/2016 07:08:Mana Perdue RN) Support Person: Lyle Yao (07/30/2016 07:08:Mana Perdue RN) Support Person Relationship: Significant Other (07/30/2016 07:08:Mana Perdue RN) Cultural/Spritual Practice: No (07/30/2016 07:08:Mana Perdue RN) Spir/Cult Dietary Needs: No (07/30/2016 07:08:Mana Perdue RN) LIVING SITUATION/DISCHARGE PLAN Living Arrangements: House (07/30/2016 07:08:Mana Perdue RN) Adequate Access to:: Electric; Heat; Refrigeration; Plumbing/Running water; Phone; Transportation (07/30/2016 07:08:Mana Perdue RN) WIC Program: No (07/30/2016 07:08:Mana Perdue RN) Discharge Tailman Person: Lyle Yao (07/30/2016 07:08:Mana Perdue RN) Person to Help after Discharge: Lyle Yao (07/30/2016 07:08:Mana Perdue RN) Currently Using Commun Resources: No (07/30/2016 07:08:Mana Perdue RN) Outside Agency/Siphon Operator: No (07/30/2016 07:08:Mana Perdue RN) Car Seat for Discharge: Yes (07/30/2016 07:08:Mana Perdue RN) Adoption Requested: No (07/30/2016 07:08:Mana Perdue RN) Pt Contact w/ Post : N/A (07/30/2016 07:08:Mana Perdue RN) LABS Blood Type: A Positive (07/30/2016 07:08:Mana Perdue RN) Antibody Screen: Negative (07/30/2016 07:08:Mana Perdue RN) Rho(G) this : Not Applicable (07/30/2016 07:08:Mana Perdue RN) Hemoglobin: 11.8 L (07/31/2016 06:56:QS system process) Hematocrit: 35.2 L (07/31/2016 06:56:QS system process) MCV: 92 (07/31/2016 06:56:QS system process) Group Beta Strep: Drone Results unknown (07/30/2016 07:08:Mana Perdue RN) Gonorrhea: Negative (07/30/2016 07:08:Mana Perdue RN) Chlamydia: Negative (07/30/2016 07:08:Mana Perdue RN) HIV Exposure Test: Negative (07/30/2016 07:08:Mana Perdue RN) HIV Results: NEGATIVE (07/30/2016 07:58:QS system process) Hepatitis B: Negative (07/30/2016 07:08:Mana Perdue RN) Rubella: POSITIVE NEGATIVE IF LESS THAN OR EQUAL TO 9.99 IU/mL POSITIVE IF GREATER THAN OR EQUAL TO 10.0 IU/mL (07/30/2016 07:58:QS system process) Rubella Titer: 42.70 (07/30/2016 07:58:QS system process) Other Lab Procedures/Results: GTT 118 (07/30/2016 07:08:Mana Perdue RN) OB/PREVIOUS HISTORY Previous Procedures: None (07/30/2016 07:08:aMna Perdue RN) Current Procedures: Ultrasound (07/30/2016 07:08:Mana Perdue RN) History of Previous : No (07/30/2016 07:08:Mana Perdue RN) History of Gestational Diabetes: No (07/30/2016 07:08:Mana Perdue RN) History of PIH: No (07/30/2016 07:08:Mana Perdue RN) History of Incompetent Cervix: No (07/30/2016 07:08:Mana Perdue RN) History of Placenta Previa/Abrup: No (07/30/2016 07:08:Mana Perdue RN) History of Macrosomia: No (07/30/2016 07:08:Mana Perdue RN) History of IUGR: No (07/30/2016 07:08:Mana Predue RN) History of Hemorrhage: No (07/30/2016 07:08:Mana Perdue RN) History of Loss/Stillborn: No (07/30/2016 07:08:Mana Perdue RN) History of : No (07/30/2016 07:08:Mana Perdue RN) History of D (Rh) Sensitization: No (07/30/2016 07:08:Mana Perdue RN) History Recurrent Loss/Stillborn: No (07/30/2016 07:08:Mana Perdue RN) History Depression/PP Depression: No (07/30/2016 07:08:Mana Perdue RN) History of Uterine Anomaly/GEE: No (07/30/2016 07:08:Mana Perdue RN) History of Infertility: No (07/30/2016 07:08:Mana Perdue RN) History of ART Treatment: No (07/30/2016 07:08:Mana Perdue RN) History of GEE: No (07/30/2016 07:08:Mana Perdue RN) Comments Obstetrical History: G1 - current - AMA (07/30/2016 07:08:Mana Perdue RN) MEDICAL HISTORY Med Hx Diabetes: No (07/30/2016 07:08:Mana Perdue RN) Med Hx Hypertension: Yes (07/30/2016 07:08:Mana Perdue RN) Med Hx Heart Disease: No (07/30/2016 07:08:Mana Perdue RN) Med Hx Autoimmune Disorder: No (07/30/2016 07:08:Mana Perdue RN) Med Hx Kidney Disease/UTI: No (07/30/2016 07:08:Mana Perdue RN) Med Hx Neurologic/Epilepsy: No (07/30/2016 07:08:Mana Perdue RN) Med Hx Psychiatric Disorders: No (07/30/2016 07:08:Mana Perdue RN) Med Hx Hepatitis/Liver Disease: No (07/30/2016 07:08:Mana Perdue RN) Med Hx Varicosities/Phlebitis: No (07/30/2016 07:08:Mana Perdue RN) Med Hx Thyroid Dysfunction: No (07/30/2016 07:08:Mana Perdue RN) Med Hx Trauma/Violence: No (07/30/2016 07:08:Mana Perdue RN) Med Hx Blood Transfusion: No (07/30/2016 07:08:Mana Perdue RN) Med Hx Pulmonary (Asthma,TB): No (07/30/2016 07:08:Mana Perdue RN) Med Hx Breast: No (07/30/2016 07:08:Mana Perdue RN) 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 (07/30/2016 07:08:Mana Perdue RN) Med Hx Hospitalization/Surgery: Yes (07/30/2016 07:08:Mana Perdue RN) Med Hx Anesthetic Complications: No (07/30/2016 07:08:Mana Perdue RN) Med Hx Abnormal Pap Smear: No (07/30/2016 07:08:Mana Perdue, RN) Other Medical Diseases: No (07/30/2016 07:08:Mana Perdeu RN) Med Hx Significant Family Hx: No (07/30/2016 07:08:Mana Perdue RN) Details of Med/Surg Hx: Hx Chronic HTN - stopped meds 2012 1999 - Breast reduction (07/30/2016 07:08:Mana Perdue RN) INFECTIOUS HISTORY Inf Hx Gonorrhea: No (07/30/2016 07:08:Mana Perdue RN) Inf Hx Chlamydia: No (07/30/2016 07:08:Mana Perdue RN) Inf Hx Syphilis: No (07/30/2016 07:08:Mana Perdue RN) Inf Hx HIV/AIDS: No (07/30/2016 07:08:Mana Perdue RN) Inf Hx Human Papilloma Virus: No (07/30/2016 07:08:Mana Perdue RN) Inf Hx Pt/Partner Genital Herpes: No (07/30/2016 07:08:Mana Perdue RN) Inf Hx Tuberculosis/Exposure: No (07/30/2016 07:08:Mana Perdue RN) Inf Hx Hepatitis B,C: No (07/30/2016 07:08:Mana Perdue RN) Inf Hx Rash or Viral Illness: No (07/30/2016 07:08:Mana Perdue RN) GENETIC HISTORY Gen Hx Age >=35 at MALINDA: Yes (07/30/2016 07:08:Mana Perdue RN) Gen Hx Thalassemia: No (07/30/2016 07:08:Mana Perdue RN) Gen Hx Congenital Heart Defect: No (07/30/2016 07:08:Mana Perdue RN) Gen Hx Neural Tube Defect: No (07/30/2016 07:08:Mana Perdue RN) Gen Hx Down's Syndrome: No (07/30/2016 07:08:Mana Perdue RN) Gen Hx Phil-Sachs: No (07/30/2016 07:08:Mana Perdue RN) Gen Hx Jennie: No (07/30/2016 07:08:Mana Perdue RN) Gen Hx Familial Dysautonomia: No (07/30/2016 07:08:Mana Perdue RN) Gen Hx Sickle Cell Disease/Trait: No (07/30/2016 07:08:Mana Perdue RN) Gen Hx Hemophilia/Blood Disorder: No (07/30/2016 07:08:Mana Perdue RN) Gen Hx Muscular Dystrophy: No (07/30/2016 07:08:Mana Perdue RN) Gen Hx Cystic Fibrosis: No (07/30/2016 07:08:Mana Perdue RN) Gen Hx Hunting[place] Chorea: No (07/30/2016 07:08:Mana Perdue RN) Gen Hx Mental Retardation/Autism: No (07/30/2016 07:08:Mana Perdue RN) Gen Hx Tested for Fragile X: No (07/30/2016 07:08:Mana Perdue RN) Gen Hx Other Inher/Chromosomal: No (07/30/2016 07:08:Mana Perdue RN) Gen Hx Maternal Metabolic DO: No (07/30/2016 07:08:Mana Perdue RN) Gen Hx Pt Father or FOB Defect: No (07/30/2016 07:08:Mana Perdue RN) Gen Hx Other Genetic History: No (07/30/2016 07:08:Mana Perdue RN) Gen Hx Drugs/Meds since LMP: No (07/30/2016 07:08:Mana Perdue RN)
--- NOTE | 2016-08-05 06:22 | L&D General Admission ---
General Admit Datetime Report Generated by CPN: 08/05/2016 06:00 INFORMATION Patient Age: 36 (07/30/2016 06:54:QS system process) EDC: 08/24/2016 00:00 (07/30/2016 07:08:Wanda Lawrence RN) EDC per Ultrasound: 08/22/2016 00:00 (07/30/2016 07:08:Mana Perdue RN) : 2 (07/30/2016 07:08:Mana Perdue RN) Para: 0 (07/30/2016 07:08:Mana Perdue RN) Term: 0 (07/30/2016 07:08:Mana Perdue RN) : 0 (07/30/2016 07:08:Mana Perdue RN) Spontaneous Abortions: 1 (07/30/2016 07:08:Mana Perdue RN) Induced Abortions: 0 (07/30/2016 07:08:Mana Perdue RN) Livin (07/30/2016 07:08:Mana Perdue RN) Cesareans: 0 (07/30/2016 07:08:Mana Perdue RN) VBACs: 0 (07/30/2016 07:08:Mana Perdue RN) Ectopic: 0 (07/30/2016 07:08:Mana Perdue RN) Multiple Births: 0 (07/30/2016 07:08:Mana Perdue RN) Baby, Number in Womb: 1 (07/30/2016 07:08:Mana Perdue RN) CARE Primary Drag Sawyer: Other-Lesia (07/30/2016 07:08:Mana Perdue RN) Drag Sawyer Other: [facility] (07/30/2016 07:08:Mana Perdue RN) Month of 1st Visit: 12/12 (07/30/2016 07:08:Mana Perdue RN) Adequate Care: Yes (07/30/2016 07:08:Mana Perdue RN) Prepregnancy Weight (lb): 190 (07/30/2016 07:08:Mana Perdue RN) Prepregnancy Weight (kg): 86.4 (07/30/2016 07:08:QS system process) Height (in): 65 (07/30/2016 07:06:QS system process) ALLERGIES Medication Allergy: No (07/30/2016 07:08:Mana Perdue RN) Medication Allergies: No Known Allergies (07/30/2016) (07/30/2016 07:06:QS system process) Latex Allergy: No Latex Allergies (07/30/2016 07:08:Mana Perdue RN) Food Allergies: None (07/30/2016 07:08:Mana Perdue RN) Environmental Allergies: None (07/30/2016 07:08:Mana Perdue RN) COMMUNICATION Primary Language: Tunisian (07/30/2016 07:08:Mana Perdue RN) Medical Tx Preferred Language: Tunisian (07/30/2016 07:08:Mana Perdue RN) Communication Barrier(s): None (07/30/2016 07:08:Mana Perdue RN) DEMOGRAPHICS Address: [facility] [address] [address] (07/30/2016 06:54:QS system process) Zipcode: [address] (07/30/2016 06:54:QS system process) Home (07/30/2016 06:54:QS system process) SSN: [id number] (07/30/2016 06:54:QS system process) Next of Kin Name: UNKNOWN UNKNOWN (07/30/2016 06:54:QS system process) Next of Kin (07/30/2016 06:54:QS system process) Next of Kin Relationship: OR (07/30/2016 06:54:QS system process) Date of : 1980 (07/30/2016 06:54:QS system process) Marital Status: Single (07/30/2016 06:54:QS system process) Sex: Female (07/30/2016 06:54:QS system process) 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 [id number] (07/30/2016 07:08:Mana Perdue RN) Marijuana: No (07/30/2016 07:08:Mana Perdue RN) Cocaine: No (07/30/2016 07:08:Mana Perdue RN) Other Illicit Drugs: No (07/30/2016 07:08:Mana Perdue RN) VACCINE HISTORY Influenza Vaccine: No (07/30/2016 07:08:Mana Perdue RN) Pneumococcal Vaccine: No (07/30/2016 07:08:Mana Perdue RN) Tetanus Vaccine: No (07/30/2016 07:08:Mana Perdue RN) Tdap Vaccine: Yes (07/30/2016 07:08:Mana Perdue RN) Hepatitis B Vaccine: Yes (07/30/2016 07:08:Mana Perdue RN) Rib Puller: [facility] (07/30/2016 07:08:Mana Perdue RN) Feeding Preference: Breast (07/30/2016 07:08:Mana Perdue RN) Benefit of Breast Feed Discussed: Yes (07/30/2016 07:08:Mana Perdue RN) Circumcision: N/A (07/30/2016 07:08:Mana Perdue RN) Classes Attended: No (07/30/2016 07:08:Mana Perdue RN) Tubal Ligation: No (07/30/2016 07:08:Mana Perdue RN) Tubal Authorization Signed: N/A (07/30/2016 07:08:Mana Perdue RN) Consent: N/A (07/30/2016 07:08:Mana Perdue RN) Consent Signed: N/A (07/30/2016 07:08:Mana Perdue RN) Pain Management Plans: Epidural (07/30/2016 07:08:Mana Perdue RN) Plans for Labor and Delivery: None (07/30/2016 07:08:Mana Perdue RN) Support Person: Lyle Yao (07/30/2016 07:08:Mana Perdue RN) Support Person Relationship: Significant Other (07/30/2016 07:08:Mana Perdue RN) Cultural/Spritual Practice: No (07/30/2016 07:08:Mana Perdue RN) Spir/Cult Dietary Needs: No (07/30/2016 07:08:Mana Perdue RN) LIVING SITUATION/DISCHARGE PLAN Living Arrangements: House (07/30/2016 07:08:Mana Perdue RN) Adequate Access to:: Electric; Heat; Refrigeration; Plumbing/Running water; Phone; Transportation (07/30/2016 07:08:Mana Perdue RN) WIC Program: No (07/30/2016 07:08:Mana Perdue RN) Discharge Pipe Layer Person: Lyle Yao (07/30/2016 07:08:Mana Perdue RN) Person to Help after Discharge: Lyle Yao (07/30/2016 07:08:Mana Perdeu RN) Currently Using Commun Resources: No (07/30/2016 07:08:Mana Perdue RN) Outside Agency/Oil Process [place]: No (07/30/2016 07:08:Mana Perdue RN) Car Seat for Discharge: Yes (07/30/2016 07:08:Mana Perdue RN) Adoption Requested: No (07/30/2016 07:08:Mana Perdue RN) Pt Contact w/ Post : N/A (07/30/2016 07:08:Mana Predue RN) LABS Blood Type: A Positive (07/30/2016 07:08:Mana Perdue RN) Antibody Screen: Negative (07/30/2016 07:08:Mana Perdue RN) Rho(G) this : Not Applicable (07/30/2016 07:08:Mana Perdue RN) Hemoglobin: 11.8 L (07/31/2016 06:56:QS system process) Hematocrit: 35.2 L (07/31/2016 06:56:QS system process) MCV: 92 (07/31/2016 06:56:QS system process) Group Beta Strep: Drone Results unknown (07/30/2016 07:08:Mana Perdue RN) Gonorrhea: Negative (07/30/2016 07:08:Mana Perdue RN) Chlamydia: Negative (07/30/2016 07:08:Mana Perdue RN) HIV Exposure Test: Negative (07/30/2016 07:08:Mana Perdue RN) HIV Results: NEGATIVE (07/30/2016 07:58:QS system process) Hepatitis B: Negative (07/30/2016 07:08:Mana Perdue RN) Rubella: POSITIVE NEGATIVE IF LESS THAN OR EQUAL TO 9.99 IU/mL POSITIVE IF GREATER THAN OR EQUAL TO 10.0 IU/mL (07/30/2016 07:58:QS system process) Rubella Titer: 42.70 (07/30/2016 07:58:QS system process) Other Lab Procedures/Results: GTT 118 (07/30/2016 07:08:Mana Perdue RN) OB/PREVIOUS HISTORY Previous Procedures: None (07/30/2016 07:08:Mana Perdue RN) Current Procedures: Ultrasound (07/30/2016 07:08:Mana Perdue RN) History of Previous : No (07/30/2016 07:08:Mana Perdue RN) History of Gestational Diabetes: No (07/30/2016 07:08:Mana Perdue RN) History of PIH: No (07/30/2016 07:08:Mana Perdue RN) History of Incompetent Cervix: No (07/30/2016 07:08:Mana Perdue RN) History of Placenta Previa/Abrup: No (07/30/2016 07:08:Mana Perdue RN) History of Macrosomia: No (07/30/2016 07:08:Mana Perdue RN) History of IUGR: No (07/30/2016 07:08:Mana Perdue RN) History of Hemorrhage: No (07/30/2016 07:08:Mana Perdue RN) History of Loss/Stillborn: No (07/30/2016 07:08:Mana Perdue RN) History of : No (07/30/2016 07:08:Mana Perdue RN) History of D (Rh) Sensitization: No (07/30/2016 07:08:Mana Perdue RN) History Recurrent Loss/Stillborn: No (07/30/2016 07:08:Mana Perdue RN) History Depression/PP Depression: No (07/30/2016 07:08:Mana Perdue RN) History of Uterine Anomaly/GEE: No (07/30/2016 07:08:Mana Perdue RN) History of Infertility: No (07/30/2016 07:08:Mana Perdue RN) History of ART Treatment: No (07/30/2016 07:08:Mana Perdue RN) History of GEE: No (07/30/2016 07:08:Mana Perdue RN) Comments Obstetrical History: G1 - current - AMA (07/30/2016 07:08:Mana Perdue RN) MEDICAL HISTORY Med Hx Diabetes: No (07/30/2016 07:08:Mana Perdue RN) Med Hx Hypertension: Yes (07/30/2016 07:08:Mana Perdue RN) Med Hx Heart Disease: No (07/30/2016 07:08:Mana Perdue RN) Med Hx Autoimmune Disorder: No (07/30/2016 07:08:Mana Perdue RN) Med Hx Kidney Disease/UTI: No (07/30/2016 07:08:Mana Perdue RN) Med Hx Neurologic/Epilepsy: No (07/30/2016 07:08:Mana Perdue RN) Med Hx Psychiatric Disorders: No (07/30/2016 07:08:Mana Perdue RN) Med Hx Hepatitis/Liver Disease: No (07/30/2016 07:08:Mana Perdue RN) Med Hx Varicosities/Phlebitis: No (07/30/2016 07:08:Mana Perdue RN) Med Hx Thyroid Dysfunction: No (07/30/2016 07:08:Mana Perdue RN) Med Hx Trauma/Violence: No (07/30/2016 07:08:Mana Perdue RN) Med Hx Blood Transfusion: No (07/30/2016 07:08:Mana Perdue RN) Med Hx Pulmonary (Asthma,TB): No (07/30/2016 07:08:Mana Perdue RN) Med Hx Breast: No (07/30/2016 07:08:Mana Perdue RN) 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 (07/30/2016 07:08:Mana Perdue RN) Med Hx Hospitalization/Surgery: Yes (07/30/2016 07:08:Mana Perdue RN) Med Hx Anesthetic Complications: No (07/30/2016 07:08:Mana Perdue RN) Med Hx Abnormal Pap Smear: No (07/30/2016 07:08:Mana Perdue, RN) Other Medical Diseases: No (07/30/2016 07:08:Mana Perdue RN) Med Hx Significant Family Hx: No (07/30/2016 07:08:Mana Perdue RN) Details of Med/Surg Hx: Hx Chronic HTN - stopped meds 2012 1999 - Breast reduction (07/30/2016 07:08:Mana Perdue RN) INFECTIOUS HISTORY Inf Hx Gonorrhea: No (07/30/2016 07:08:Mana Perdue RN) Inf Hx Chlamydia: No (07/30/2016 07:08:Mana Perdue RN) Inf Hx Syphilis: No (07/30/2016 07:08:Mana Perdue RN) Inf Hx HIV/AIDS: No (07/30/2016 07:08:Mana Perdue RN) Inf Hx Human Papilloma Virus: No (07/30/2016 07:08:Mana Perdue RN) Inf Hx Pt/Partner Genital Herpes: No (07/30/2016 07:08:Mana Perdue RN) Inf Hx Tuberculosis/Exposure: No (07/30/2016 07:08:Mana Perdue RN) Inf Hx Hepatitis B,C: No (07/30/2016 07:08:Mana Perdue RN) Inf Hx Rash or Viral Illness: No (07/30/2016 07:08:Mana Perdue RN) GENETIC HISTORY Gen Hx Age >=35 at MALINDA: Yes (07/30/2016 07:08:Mana Perdue RN) Gen Hx Thalassemia: No (07/30/2016 07:08:Mana Perdue RN) Gen Hx Congenital Heart Defect: No (07/30/2016 07:08:Mana Perdue RN) Gen Hx Neural Tube Defect: No (07/30/2016 07:08:Mana Perdue RN) Gen Hx Down's Syndrome: No (07/30/2016 07:08:Mana Perdue RN) Gen Hx Phil-Sachs: No (07/30/2016 07:08:Mana Perdue RN) Gen Hx Jennie: No (07/30/2016 07:08:Mana Perdue RN) Gen Hx Familial Dysautonomia: No (07/30/2016 07:08:Mana Perdue RN) Gen Hx Sickle Cell Disease/Trait: No (07/30/2016 07:08:Mana Perdue RN) Gen Hx Hemophilia/Blood Disorder: No (07/30/2016 07:08:Mana Perdue RN) Gen Hx Muscular Dystrophy: No (07/30/2016 07:08:Mana Perdue RN) Gen Hx Cystic Fibrosis: No (07/30/2016 07:08:Mana Perdue RN) Gen Hx [place] Chorea: No (07/30/2016 07:08:Mana Perdue RN) Gen Hx Mental Retardation/Autism: No (07/30/2016 07:08:Mana Perdue RN) Gen Hx Tested for Fragile X: No (07/30/2016 07:08:Mana Perdue RN) Gen Hx Other Inher/Chromosomal: No (07/30/2016 07:08:Mana Perdue RN) Gen Hx Maternal Metabolic DO: No (07/30/2016 07:08:Mana Perdue RN) Gen Hx Pt Father or FOB Defect: No (07/30/2016 07:08:Mana Perdue RN) Gen Hx Other Genetic History: No (07/30/2016 07:08:Mana Perdue RN) Gen Hx Drugs/Meds since LMP: No (07/30/2016 07:08:Mana Perdue RN)
--- NOTE | 2016-08-06 06:23 | L&D General Admission ---
General Admit Datetime Report Generated by CPN: 08/06/2016 06:00 INFORMATION Patient Age: 36 (07/30/2016 06:54:QS system process) EDC: 08/24/2016 00:00 (07/30/2016 07:08:Wanda Lawrence RN) EDC per Ultrasound: 08/22/2016 00:00 (07/30/2016 07:08:Mana Perdue RN) : 2 (07/30/2016 07:08:Mana Perdue RN) Para: 0 (07/30/2016 07:08:Mana Perdue RN) Term: 0 (07/30/2016 07:08:Mana Perdue RN) : 0 (07/30/2016 07:08:Mana Perdue RN) Spontaneous Abortions: 1 (07/30/2016 07:08:Mana Perdue RN) Induced Abortions: 0 (07/30/2016 07:08:Mana Perdue RN) Livin (07/30/2016 07:08:Mana Perdue RN) Cesareans: 0 (07/30/2016 07:08:Mana Perdue RN) VBACs: 0 (07/30/2016 07:08:Mana Perdue RN) Ectopic: 0 (07/30/2016 07:08:Mana Perdue RN) Multiple Births: 0 (07/30/2016 07:08:Mana Perdue RN) Baby, Number in Womb: 1 (07/30/2016 07:08:Mana Perdue RN) CARE Primary Oil Heat Technician: Other-Lesia (07/30/2016 07:08:Mana Perdue RN) Oil Heat Technician [facility] (07/[facility]/2016 07:08:Mana Perdue RN) Month of 1st Visit: 12/12 (07/30/2016 07:08:Mana Perdue RN) Adequate Care: Yes (07/30/2016 07:08:Mana Perdue RN) Prepregnancy Weight (lb): 190 (07/30/2016 07:08:Mana Perdue RN) Prepregnancy Weight (kg): 86.4 (07/30/2016 07:08:QS system process) Height (in): 65 (07/30/2016 07:06:QS system process) ALLERGIES Medication Allergy: No (07/30/2016 07:08:Mana Perdue RN) Medication Allergies: No Known Allergies (07/30/2016) (07/30/2016 07:06:QS system process) Latex Allergy: No Latex Allergies (07/30/2016 07:08:Mana Perdue RN) Food Allergies: None (07/30/2016 07:08:Mana Perdue RN) Environmental Allergies: None (07/30/2016 07:08:Mana Perdue RN) COMMUNICATION Primary Language: Hungarian (07/30/2016 07:08:Mana Perdue RN) Medical Tx Preferred Language: Hungarian (07/30/2016 07:08:Mana Perdue RN) Communication Barrier(s): None (07/30/2016 07:08:Mana Perdue RN) DEMOGRAPHICS Address: [facility] [address] [address] (07/30/2016 06:54:QS system process) Zipcode: [phone] (07/30/2016 06:54:QS system process) Home (07/30/2016 06:54:QS system process) SSN: [id number] (07/30/2016 06:54:QS system process) Next of Kin Name: UNKNOWN UNKNOWN (07/30/2016 06:54:QS system process) Next of Kin (07/30/2016 06:54:QS system process) Next of Kin Relationship: OR (07/30/2016 06:54:QS system process) Date of : 1980 (07/30/2016 06:54:QS system process) Marital Status: Single (07/30/2016 06:54:QS system process) Sex: Female (07/30/2016 06:54:QS system process) 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 [id number] (07/30/2016 07:08:Mana Perdue RN) Marijuana: No (07/30/2016 07:08:Mana Perdue RN) Cocaine: No (07/30/2016 07:08:Mana Perdue RN) Other Illicit Drugs: No (07/30/2016 07:08:Mana Perdue RN) VACCINE HISTORY Influenza Vaccine: No (07/30/2016 07:08:Mana Perdue RN) Pneumococcal Vaccine: No (07/30/2016 07:08:Mana Perdue RN) Tetanus Vaccine: No (07/30/2016 07:08:Mana Perdue RN) Tdap Vaccine: Yes (07/30/2016 07:08:Mana Perdue RN) Hepatitis B Vaccine: Yes (07/30/2016 07:08:Mana Perdue RN) Service Car Driver: [facility] (07/30/2016 07:08:Mana Perdue RN) Feeding Preference: Breast (07/30/2016 07:08:Mana Perdue RN) Benefit of Breast Feed Discussed: Yes (07/30/2016 07:08:Mana Perdue RN) Circumcision: N/A (07/30/2016 07:08:Mana Perdue RN) Classes Attended: No (07/30/2016 07:08:Mana Perdue RN) Tubal Ligation: No (07/30/2016 07:08:Mana Perdue RN) Tubal Authorization Signed: N/A (07/30/2016 07:08:Mana Perdue RN) Consent: N/A (07/30/2016 07:08:Mana Perdue RN) Consent Signed: N/A (07/30/2016 07:08:Mana Perdue RN) Pain Management Plans: Epidural (07/30/2016 07:08:Mana Perdue RN) Plans for Labor and Delivery: None (07/30/2016 07:08:Mana Perdue RN) Support Person: Lyle Yao (07/30/2016 07:08:Mana Perdue RN) Support Person Relationship: Significant Other (07/30/2016 07:08:Mana Perdue RN) Cultural/Spritual Practice: No (07/30/2016 07:08:Mana Perdue RN) Spir/Cult Dietary Needs: No (07/30/2016 07:08:Mana Perdue RN) LIVING SITUATION/DISCHARGE PLAN Living Arrangements: House (07/30/2016 07:08:Mana Perdue RN) Adequate Access to:: Electric; Heat; Refrigeration; Plumbing/Running water; Phone; Transportation (07/30/2016 07:08:Mana Perdue RN) WIC Program: No (07/30/2016 07:08:Mana Perdue RN) Discharge Php Mysql Web Developer Person: Lyle Yao (07/30/2016 07:08:Mana Perdue RN) Person to Help after Discharge: Lyle Yao (07/30/2016 07:08:Mana Perdue RN) Currently Using Commun Resources: No (07/30/2016 07:08:Mana Perdue RN) Outside Agency/[place] [place]: No (07/30/2016 07:08:Mana Perdue RN) Car Seat for Discharge: Yes (07/30/2016 07:08:Mana Perdue RN) Adoption Requested: No (07/30/2016 07:08:Mana Perdue RN) Pt Contact w/ Post : N/A (07/30/2016 07:08:Mana Perdue RN) LABS Blood Type: A Positive (07/30/2016 07:08:Mana Perdue RN) Antibody Screen: Negative (07/30/2016 07:08:Mana Perdue RN) Rho(G) this : Not Applicable (07/30/2016 07:08:Mana Perdue RN) Hemoglobin: 11.8 L (07/31/2016 06:56:QS system process) Hematocrit: 35.2 L (07/31/2016 06:56:QS system process) MCV: 92 (07/31/2016 06:56:QS system process) Group Beta Strep: Drone Results unknown (07/30/2016 07:08:Mana Perdue RN) Gonorrhea: Negative (07/30/2016 07:08:Mana Perdue RN) Chlamydia: Negative (07/30/2016 07:08:Mana Perdue RN) HIV Exposure Test: Negative (07/30/2016 07:08:Mana Perdue RN) HIV Results: NEGATIVE (07/30/2016 07:58:QS system process) Hepatitis B: Negative (07/30/2016 07:08:Mana Perdue RN) Rubella: POSITIVE NEGATIVE IF LESS THAN OR EQUAL TO 9.99 IU/mL POSITIVE IF GREATER THAN OR EQUAL TO 10.0 IU/mL (07/30/2016 07:58:QS system process) Rubella Titer: 42.70 (07/30/2016 07:58:QS system process) Other Lab Procedures/Results: GTT 118 (07/30/2016 07:08:Mana Perdue RN) OB/PREVIOUS HISTORY Previous Procedures: None (07/30/2016 07:08:Mana Perdue RN) Current Procedures: Ultrasound (07/30/2016 07:08:Mana Perdue RN) History of Previous : No (07/30/2016 07:08:Mana Perdue RN) History of Gestational Diabetes: No (07/30/2016 07:08:Mana Perdue RN) History of PIH: No (07/30/2016 07:08:Mana Perdue RN) History of Incompetent Cervix: No (07/30/2016 07:08:Mana Perdue RN) History of Placenta Previa/Abrup: No (07/30/2016 07:08:Mana Perdue RN) History of Macrosomia: No (07/30/2016 07:08:Mana Perdue RN) History of IUGR: No (07/30/2016 07:08:Mana Perdue RN) History of Hemorrhage: No (07/30/2016 07:08:Mana Perdue RN) History of Loss/Stillborn: No (07/30/2016 07:08:Mana Perdue RN) History of : No (07/30/2016 07:08:Mana Perdue RN) History of D (Rh) Sensitization: No (07/30/2016 07:08:Mana Perdue RN) History Recurrent Loss/Stillborn: No (07/30/2016 07:08:Mana Perdue RN) History Depression/PP Depression: No (07/30/2016 07:08:Mana Perdue RN) History of Uterine Anomaly/GEE: No (07/30/2016 07:08:Mana Perdue RN) History of Infertility: No (07/30/2016 07:08:Mana Perdue RN) History of ART Treatment: No (07/30/2016 07:08:Mana Perdue RN) History of GEE: No (07/30/2016 07:08:Mana Perdue RN) Comments Obstetrical History: G1 - current - AMA (07/30/2016 07:08:Mana Perdue RN) MEDICAL HISTORY Med Hx Diabetes: No (07/30/2016 07:08:Mana Perdue RN) Med Hx Hypertension: Yes (07/30/2016 07:08:Mana Perdue RN) Med Hx Heart Disease: No (07/30/2016 07:08:Mana Perdue RN) Med Hx Autoimmune Disorder: No (07/30/2016 07:08:Mana Perdue RN) Med Hx Kidney Disease/UTI: No (07/30/2016 07:08:Mana Perdue RN) Med Hx Neurologic/Epilepsy: No (07/30/2016 07:08:Mana Perdue RN) Med Hx Psychiatric Disorders: No (07/30/2016 07:08:Mana Perdue RN) Med Hx Hepatitis/Liver Disease: No (07/30/2016 07:08:Mana Perdue RN) Med Hx Varicosities/Phlebitis: No (07/30/2016 07:08:Mana Perdue RN) Med Hx Thyroid Dysfunction: No (07/30/2016 07:08:Mana Perdue RN) Med Hx Trauma/Violence: No (07/30/2016 07:08:Mana Perdue RN) Med Hx Blood Transfusion: No (07/30/2016 07:08:Mana Perdue RN) Med Hx Pulmonary (Asthma,TB): No (07/30/2016 07:08:Mana Perdue RN) Med Hx Breast: No (07/30/2016 07:08:Mana Perdue RN) Med Hx TRAFFIC ENGINEER Surgery: No (07/30/2016 07:08:Mana Perdue RN) Med Hx Hospitalization/Surgery: Yes (07/30/2016 07:08:Mana Perdue RN) Med Hx Anesthetic Complications: No (07/30/2016 07:08:Mana Perdue RN) Med Hx Abnormal Pap Smear: No (07/30/2016 07:08:Mana Perdue, RN) Other Medical Diseases: No (07/30/2016 07:08:Mana Perdue RN) Med Hx Significant Family Hx: No (07/30/2016 07:08:Mana Perdue RN) Details of Med/Surg Hx: Hx Chronic HTN - stopped meds 2012 1999 - Breast reduction (07/30/2016 07:08:Mana Perdue RN) INFECTIOUS HISTORY Inf Hx Gonorrhea: No (07/30/2016 07:08:Mana Perdue RN) Inf Hx Chlamydia: No (07/30/2016 07:08:Mana Perdue RN) Inf Hx Syphilis: No (07/30/2016 07:08:Mana Perdue RN) Inf Hx HIV/AIDS: No (07/30/2016 07:08:Mana Perdue RN) Inf Hx Human Papilloma Virus: No (07/30/2016 07:08:Mana Perdue RN) Inf Hx Pt/Partner Genital Herpes: No (07/30/2016 07:08:Mana Perdue RN) Inf Hx Tuberculosis/Exposure: No (07/30/2016 07:08:Mana Perdue RN) Inf Hx Hepatitis B,C: No (07/30/2016 07:08:Mana Perdue RN) Inf Hx Rash or Viral Illness: No (07/30/2016 07:08:Mana Perdue RN) GENETIC HISTORY Gen Hx Age >=35 at MALINDA: Yes (07/30/2016 07:08:Mana Perdue RN) Gen Hx Thalassemia: No (07/30/2016 07:08:Mana Perdue RN) Gen Hx Congenital Heart Defect: No (07/30/2016 07:08:Mana Perdue RN) Gen Hx Neural Tube Defect: No (07/30/2016 07:08:Mana Perdue RN) Gen Hx Down's Syndrome: No (07/30/2016 07:08:Mana Perdue RN) Gen Hx Phil-Sachs: No (07/30/2016 07:08:Mana Perdue RN) Gen Hx Jennie: No (07/30/2016 07:08:Mana Perdue RN) Gen Hx Familial Dysautonomia: No (07/30/2016 07:08:Mana Perdue RN) Gen Hx Sickle Cell Disease/Trait: No (07/30/2016 07:08:Mana Perdue RN) Gen Hx Hemophilia/Blood Disorder: No (07/30/2016 07:08:Mana Perdue RN) Gen Hx Muscular Dystrophy: No (07/30/2016 07:08:Mana Perdue RN) Gen Hx Cystic Fibrosis: No (07/30/2016 07:08:Mana Perdue RN) Gen Hx Huntingtons Chorea: No (07/30/2016 07:08:Mana Perdue RN) Gen Hx Mental Retardation/Autism: No (07/30/2016 07:08:Mana Perdue RN) Gen Hx Tested for Fragile X: No (07/30/2016 07:08:Mana Perdue RN) Gen Hx Other Inher/Chromosomal: No (07/30/2016 07:08:Mana Perdue RN) Gen Hx Maternal Metabolic DO: No (07/30/2016 07:08:Mana Perdue RN) Gen Hx Pt Father or FOB Defect: No (07/30/2016 07:08:Mana Perdue RN) Gen Hx Other Genetic History: No (07/30/2016 07:08:Mana Perdue RN) Gen Hx Drugs/Meds since LMP: No (07/30/2016 07:08:Mana Perdue RN)
--- NOTE | 2016-08-07 06:22 | L&D General Admission ---
General Admit Datetime Report Generated by CPN: 08/07/2016 06:00 INFORMATION Patient Age: 36 (07/30/2016 06:54:QS system process) EDC: 08/24/2016 00:00 (07/30/2016 07:08:Wanda Lawrence RN) EDC per Ultrasound: 08/22/2016 00:00 (07/30/2016 07:08:Mana Perdue RN) : 2 (07/30/2016 07:08:Mana Perdue RN) Para: 0 (07/30/2016 07:08:Mana Perdue RN) Term: 0 (07/30/2016 07:08:Mana Perdue RN) : 0 (07/30/2016 07:08:Mana Perdue RN) Spontaneous Abortions: 1 (07/30/2016 07:08:Mana Perdue RN) Induced Abortions: 0 (07/30/2016 07:08:Mana Perdue RN) Livin (07/30/2016 07:08:Mana Perdue RN) Cesareans: 0 (07/30/2016 07:08:Mana Perdue RN) VBACs: 0 (07/30/2016 07:08:Mana Perdue RN) Ectopic: 0 (07/30/2016 07:08:Mana Perdue RN) Multiple Births: 0 (07/30/2016 07:08:Mana Perdue RN) Baby, Number in Womb: 1 (07/30/2016 07:08:Mana Perdue RN) CARE Primary Housefellow: Other-Lesia (07/30/2016 07:08:Mana Perdue RN) [facility] (07/[facility]/2016 07:08:Mana Perdue RN) Month of 1st Visit: 12/12 (07/30/2016 07:08:Mana Perdue RN) Adequate Care: Yes (07/30/2016 07:08:Mana Perdue RN) Prepregnancy Weight (lb): 190 (07/30/2016 07:08:Mana Perdue RN) Prepregnancy Weight (kg): 86.4 (07/30/2016 07:08:QS system process) Height (in): 65 (07/30/2016 07:06:QS system process) ALLERGIES Medication Allergy: No (07/30/2016 07:08:Mana Perdue RN) Medication Allergies: No Known Allergies (07/30/2016) (07/30/2016 07:06:QS system process) Latex Allergy: No Latex Allergies (07/30/2016 07:08:Mana Perdue RN) Food Allergies: None (07/30/2016 07:08:Mana Perdue RN) Environmental Allergies: None (07/30/2016 07:08:Mana Perdue RN) COMMUNICATION Primary Language: Romanian (07/30/2016 07:08:Mana Perdue RN) Medical Tx Preferred Language: Romanian (07/30/2016 07:08:Mana Perdue RN) Communication Barrier(s): None (07/30/2016 07:08:Mana Perdue RN) DEMOGRAPHICS Address: [facility] [address] [address] (07/30/2016 06:54:QS system process) Zipcode: [address] (07/30/2016 06:54:QS system process) Home (07/30/2016 06:54:QS system process) SSN: [id number] (07/30/2016 06:54:QS system process) Next of Kin Name: UNKNOWN UNKNOWN (07/30/2016 06:54:QS system process) Next of Kin (07/30/2016 06:54:QS system process) Next of Kin Relationship: OR (07/30/2016 06:54:QS system process) Date of : 1980 (07/30/2016 06:54:QS system process) Marital Status: Single (07/30/2016 06:54:QS system process) Sex: Female (07/30/2016 06:54:QS system process) 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 [phone] (07/30/2016 07:08:Mana Perdue RN) Marijuana: No (07/30/2016 07:08:Mana Perdue RN) Cocaine: No (07/30/2016 07:08:Mana Perdue RN) Other Illicit Drugs: No (07/30/2016 07:08:Mana Perdue RN) VACCINE HISTORY Influenza Vaccine: No (07/30/2016 07:08:Mana Perdue RN) Pneumococcal Vaccine: No (07/30/2016 07:08:Mana Perdue RN) Tetanus Vaccine: No (07/30/2016 07:08:Mana Perdue RN) Tdap Vaccine: Yes (07/30/2016 07:08:Mana Perdue RN) Hepatitis B Vaccine: Yes (07/30/2016 07:08:Mana Perdue RN) Toolmaker: [facility] (07/30/2016 07:08:Mana Perdue RN) Feeding Preference: Breast (07/30/2016 07:08:Mana Perdue RN) Benefit of Breast Feed Discussed: Yes (07/30/2016 07:08:Mana Perdue RN) Circumcision: N/A (07/30/2016 07:08:Mana Perdue RN) Classes Attended: No (07/30/2016 07:08:Mana Perdue RN) Tubal Ligation: No (07/30/2016 07:08:Mana ePrdue RN) Tubal Authorization Signed: N/A (07/30/2016 07:08:Mana Perdue RN) Consent: N/A (07/30/2016 07:08:Mana Perdue RN) Consent Signed: N/A (07/30/2016 07:08:Mana Perdue RN) Pain Management Plans: Epidural (07/30/2016 07:08:Mana Perdue RN) Plans for Labor and Delivery: None (07/30/2016 07:08:Mana Perdue RN) Support Person: Lyle Yao (07/30/2016 07:08:Mana Perdue RN) Support Person Relationship: Significant Other (07/30/2016 07:08:Mana Perdue RN) Cultural/Spritual Practice: No (07/30/2016 07:08:Mana Perdue RN) Spir/Cult Dietary Needs: No (07/30/2016 07:08:Mana Perdue RN) LIVING SITUATION/DISCHARGE PLAN Living Arrangements: House (07/30/2016 07:08:Mana Perdue RN) Adequate Access to:: Electric; Heat; Refrigeration; Plumbing/Running water; Phone; Transportation (07/30/2016 07:08:Mana Perdue RN) WIC Program: No (07/30/2016 07:08:Mana Perdue RN) Discharge Cafe Site Attendant Person: Lyle Yao (07/30/2016 07:08:Mana Perdue RN) Person to Help after Discharge: Lyle Yao (07/30/2016 07:08:Mana Perdue RN) Currently Using Commun Resources: No (07/30/2016 07:08:Mana Perdue RN) Outside Agency/It Project Lead: No (07/30/2016 07:08:Mana Perdue RN) Car Seat for Discharge: Yes (07/30/2016 07:08:Mana Perdue RN) Adoption Requested: No (07/30/2016 07:08:Mana Perdue RN) Pt Contact w/ Post : N/A (07/30/2016 07:08:Mana Perdue RN) LABS Blood Type: A Positive (07/30/2016 07:08:Mana Perdue RN) Antibody Screen: Negative (07/30/2016 07:08:Mana Perdue RN) Rho(G) this : Not Applicable (07/30/2016 07:08:Mana Perdue RN) Hemoglobin: 11.8 L (07/31/2016 06:56:QS system process) Hematocrit: 35.2 L (07/31/2016 06:56:QS system process) MCV: 92 (07/31/2016 06:56:QS system process) Group Beta Strep: Drone Results unknown (07/30/2016 07:08:Mana Perdue RN) Gonorrhea: Negative (07/30/2016 07:08:Mana Perdue RN) Chlamydia: Negative (07/30/2016 07:08:Mana Perdue RN) HIV Exposure Test: Negative (07/30/2016 07:08:Mana Perdue RN) HIV Results: NEGATIVE (07/30/2016 07:58:QS system process) Hepatitis B: Negative (07/30/2016 07:08:Mana Perdue RN) Rubella: POSITIVE NEGATIVE IF LESS THAN OR EQUAL TO 9.99 IU/mL POSITIVE IF GREATER THAN OR EQUAL TO 10.0 IU/mL (07/30/2016 07:58:QS system process) Rubella Titer: 42.70 (07/30/2016 07:58:QS system process) Other Lab Procedures/Results: GTT 118 (07/30/2016 07:08:Mana Perdue RN) OB/PREVIOUS HISTORY Previous Procedures: None (07/30/2016 07:08:Mana Perdue RN) Current Procedures: Ultrasound (07/30/2016 07:08:Mana Perdue RN) History of Previous : No (07/30/2016 07:08:Mana Perdue RN) History of Gestational Diabetes: No (07/30/2016 07:08:Mana Perdue RN) History of PIH: No (07/30/2016 07:08:Mana Perdue RN) History of Incompetent Cervix: No (07/30/2016 07:08:Mana Perdue RN) History of Placenta Previa/Abrup: No (07/30/2016 07:08:Mana Perdue RN) History of Macrosomia: No (07/30/2016 07:08:Mana Perdue RN) History of IUGR: No (07/30/2016 07:08:Mana Perdue RN) History of Hemorrhage: No (07/30/2016 07:08:Mana Perdue RN) History of Loss/Stillborn: No (07/30/2016 07:08:Mana Perdue RN) History of : No (07/30/2016 07:08:Mana Perdue RN) History of D (Rh) Sensitization: No (07/30/2016 07:08:Mana Perdue RN) History Recurrent Loss/Stillborn: No (07/30/2016 07:08:Mana Perdue RN) History Depression/PP Depression: No (07/30/2016 07:08:Mana Perdue RN) History of Uterine Anomaly/GEE: No (07/30/2016 07:08:Mana Perdue RN) History of Infertility: No (07/30/2016 07:08:Mana Perdue RN) History of ART Treatment: No (07/30/2016 07:08:Mana Perdue RN) History of GEE: No (07/30/2016 07:08:Mana Perdue RN) Comments Obstetrical History: G1 - current - AMA (07/30/2016 07:08:Mana Perdue RN) MEDICAL HISTORY Med Hx Diabetes: No (07/30/2016 07:08:Mana Perdue RN) Med Hx Hypertension: Yes (07/30/2016 07:08:Mana Perdue RN) Med Hx Heart Disease: No (07/30/2016 07:08:Mana Perdue RN) Med Hx Autoimmune Disorder: No (07/30/2016 07:08:Mana Perdue RN) Med Hx Kidney Disease/UTI: No (07/30/2016 07:08:Mana Perdue RN) Med Hx Neurologic/Epilepsy: No (07/30/2016 07:08:Mana Perdue RN) Med Hx Psychiatric Disorders: No (07/30/2016 07:08:Mana Perdue RN) Med Hx Hepatitis/Liver Disease: No (07/30/2016 07:08:Mana Perdue RN) Med Hx Varicosities/Phlebitis: No (07/30/2016 07:08:Mana Perdue RN) Med Hx Thyroid Dysfunction: No (07/30/2016 07:08:Mana Perdue RN) Med Hx Trauma/Violence: No (07/30/2016 07:08:Mana Perdue RN) Med Hx Blood Transfusion: No (07/30/2016 07:08:Mana Perdue RN) Med Hx Pulmonary (Asthma,TB): No (07/30/2016 07:08:Mana Perdue RN) Med Hx Breast: No (07/30/2016 07:08:Mana Perdue RN) Med Hx BOOM PUMP OPERATOR Surgery: No (07/30/2016 07:08:Mana Perdue RN) Med Hx Hospitalization/Surgery: Yes (07/30/2016 07:08:Mana Perdue RN) Med Hx Anesthetic Complications: No (07/30/2016 07:08:Mana Perdue RN) Med Hx Abnormal Pap Smear: No (07/30/2016 07:08:Mana Perdue, RN) Other Medical Diseases: No (07/30/2016 07:08:Mana Perdue RN) Med Hx Significant Family Hx: No (07/30/2016 07:08:Mana Perdue RN) Details of Med/Surg Hx: Hx Chronic HTN - stopped meds 2012 1999 - Breast reduction (07/30/2016 07:08:Mana Perdue RN) INFECTIOUS HISTORY Inf Hx Gonorrhea: No (07/30/2016 07:08:Mana Perdue RN) Inf Hx Chlamydia: No (07/30/2016 07:08:Mana Perdue RN) Inf Hx Syphilis: No (07/30/2016 07:08:Mana Perdue RN) Inf Hx HIV/AIDS: No (07/30/2016 07:08:Mana Perdue RN) Inf Hx Human Papilloma Virus: No (07/30/2016 07:08:Mana Perdue RN) Inf Hx Pt/Partner Genital Herpes: No (07/30/2016 07:08:Mana Perdue RN) Inf Hx Tuberculosis/Exposure: No (07/30/2016 07:08:Mana Perdue RN) Inf Hx Hepatitis B,C: No (07/30/2016 07:08:Mana Perdue RN) Inf Hx Rash or Viral Illness: No (07/30/2016 07:08:Mana Perdue RN) GENETIC HISTORY Gen Hx Age >=35 at MALINDA: Yes (07/30/2016 07:08:Mana Perdue RN) Gen Hx Thalassemia: No (07/30/2016 07:08:Mana Perdue RN) Gen Hx Congenital Heart Defect: No (07/30/2016 07:08:Mana Perdue RN) Gen Hx Neural Tube Defect: No (07/30/2016 07:08:Mana Perdue RN) Gen Hx Down's Syndrome: No (07/30/2016 07:08:Mana Perdue RN) Gen Hx Phil-Sachs: No (07/30/2016 07:08:Mana Perdue RN) Gen Hx Jennie: No (07/30/2016 07:08:Mana Perdue RN) Gen Hx Familial Dysautonomia: No (07/30/2016 07:08:Mana Perdue RN) Gen Hx Sickle Cell Disease/Trait: No (07/30/2016 07:08:Mana Perdue RN) Gen Hx Hemophilia/Blood Disorder: No (07/30/2016 07:08:Mana Perdue RN) Gen Hx Muscular Dystrophy: No (07/30/2016 07:08:Mana Perdue RN) Gen Hx Cystic Fibrosis: No (07/30/2016 07:08:Mana Perdue RN) Gen Hx Hunting[place] Chorea: No (07/30/2016 07:08:Mana Perdue RN) Gen Hx Mental Retardation/Autism: No (07/30/2016 07:08:Mana Perdue RN) Gen Hx Tested for Fragile X: No (07/30/2016 07:08:Mana Perdue RN) Gen Hx Other Inher/Chromosomal: No (07/30/2016 07:08:Mana Perdue RN) Gen Hx Maternal Metabolic DO: No (07/30/2016 07:08:Mana Perdue RN) Gen Hx Pt Father or FOB Defect: No (07/30/2016 07:08:Mana Perdue RN) Gen Hx Other Genetic History: No (07/30/2016 07:08:Mana Perdue RN) Gen Hx Drugs/Meds since LMP: No (07/30/2016 07:08:Mana Perdue RN)
== END 2016-08-01 18:27 | disposition home or self-care (01) | DRG 775 ==
LOC: LC 06:53 → LR 07:44 → 2S 17:18
PROVIDERS: ADMIT Specialist; ATTEND Specialist
PROC: 10D07Z6 Extraction of Products of Conception, Vacuum, Via Natural or Artificial Opening (ICD-10-PCS; principal; 2016-07-30)
PROC: 0W8NXZZ Division of Female Perineum, External Approach (ICD-10-PCS; 2016-07-30)
PROC: 10H07YZ Insertion of Other Device into Products of Conception, Via Natural or Artificial Opening (ICD-10-PCS; 2016-07-30)
PROC: 4A1J7BZ Monitoring of Products of Conception, Nervous Pressure, Via Natural or Artificial Opening (ICD-10-PCS; 2016-07-30)
DX: O42.013 Preterm premature rupture of membranes, onset of labor within 24 hours of rupture, third trimester (principal); O76 Abnormality in fetal heart rate and rhythm complicating labor and delivery; Z3A.36 36 weeks gestation of pregnancy; Z37.0 Single live birth
CPT/HCPCS: 36415; 80053; 80307; 81001; 83615; 84112; 84550; 85025; 85027; 86592; 86701; 86704; 86705; 86706; 86707; 86762; 86803; 86850; 86900; 86901; 87340; 87350; 87491; 87591; 88307; J2370; J2540; J2590; J3010; J3490